=== PATIENT | female | born 1965 | race Caucasian/White ===

== ENCOUNTER → 2016-04-05 | Outpatient (CLI) | payer BC ==
[~2016-04-05] MED LIST: ESCI10TA17 PO; LEVO125T72 PO; LIOT5TAB PO; PSYL0.524 PO
--- NOTE | 2016-04-05 16:41 | MAMMOGRAPHY REPORT ---
BILATERAL DIGITAL SCREENING MAMMOGRAM TOMOSYNTHESIS WITH CAD: 04/05/2016 TECHNIQUE: Breast tomosynthesis in addition to standard 2D mammography was performed. Current study was also evaluated with a Computer Aided Detection (CAD) system. COMPARISON: Comparison is made to exams dated: 03/31/2015 mammogram, 03/25/2014 mammogram, 03/19/2013 m ammogram, 02/29/2012 mammogram, 02/27/2011 mammogram - [facility], and 02/09/2010 m ammogram. BREAST COMPOSITION: The tissue of both breasts is heterogeneously dense, which may obscure small ma sses. FINDINGS: No suspicious masses, calcifications, or areas of architectural distortion are noted in e ither breast. There has been no significant interval change compared to prior exams. IMPRESSION: ACR BI-RADS CATEGORY 1: NEGATIVE There is no mammographic evidence of malignancy. A 1 year screening mammogram is recommended. The p atient will receive written notification of the results. Approximately 10% of breast cancers are not detected with mammography. A negative mammographic repor t should not delay biopsy if a clinically suggestive mass is present. Aruna Durand M.D. /:04/05/2016 15:33:43 Chemical Sprayer: Natalia CRUMP(Deja)(Mayi), [facility] letter sent: Normal 1/2 BI-RADS Code: ACR BI-RADS Category 1: Negative
== END | disposition home or self-care (01) ==
LOC: C.MAMM 10:10
PROVIDERS: ATTEND Obstetrics & Gynecology
DX: Z12.31 Encounter for screening mammogram for malignant neoplasm of breast (principal)

== ENCOUNTER → 2016-07-27 | Outpatient (CLI) | payer BC ==
[~2016-07-27] MED LIST changes: +MISCCAP80 PO; +ONDA4TAB10 SL; +OXYC-57 PO; +TAMS0.4C38 PO
== END | disposition home or self-care (01) ==
LOC: C.PAPS 08:56
PROVIDERS: ATTEND Obstetrics & Gynecology
DX: Z01.419 Encounter for gynecological examination (general) (routine) without abnormal findings (principal)

== ENCOUNTER → 2016-07-30 | Outpatient (CLI) | payer BC | END | disposition home or self-care (01) | LOC: C.PATHSPEC 17:39 | PROVIDERS: ATTEND Obstetrics & Gynecology | DX: N90.4 Leukoplakia of vulva (principal) ==

== ENCOUNTER 2016-12-12 17:55 | Emergency (ER) | payer BC ==
[~2016-12-12] VITALS: Ht 167.6 cm; Wt 88.0 kg
[~2016-12-12 17:55] MED LIST changes: -MISCCAP80 PO; -ONDA4TAB10 SL; -OXYC-57 PO; -TAMS0.4C38 PO
[2016-12-12 18:14] VITALS: TEMP 37.4; Ht 167.6 cm; Wt 88.0 kg
[2016-12-12] MEDS ORDERED: SODIUM CHLORIDE 0.9% 1000ML 1,000 ML IV STA (19:21)
[2016-12-12] MEDS ORDERED: KETOROLAC TROMETHAMINE 30 MG/ML VIAL IV STA (19:21)
[2016-12-12 19:53] LABS: BASO % 0.6 %; BASO ABS # 0.04 K/uL (0-0.2); COMPLETE YES; EOS % 1.7 %; HEMATOCRIT 42.9 % (37-47); IG% 0.1 %; LYMPH % 23.7 %; LYMPH ABS # 1.63 K/uL (1.2-3.4); MEAN CELL VOLUME 83.5 fL (80-100); MEAN CORPUSCULAR HEMOGLOBIN 27.8 pg (25-34); MEAN CORPUSCULAR HGB CONC 33.3 g/dl (32-36); MEAN PLATELET VOLUME 9.9 fL (7.4-10.4); MONO % 6.3 %; NEUT % 67.6 %; PLATELET COUNT 218 K/uL (130-400); RED BLOOD COUNT 5.14 M/uL (4.2-5.4); WHITE BLOOD COUNT 6.87 K/uL (4.8-10.8)
[2016-12-12] MEDS ORDERED: MISCCAP80 PO (19:53)
[2016-12-12 20:02] LABS: URINE APPEARANCE CLEAR (CLEAR); URINE BILIRUBIN NEG (NEG); URINE COLOR YELLOW; URINE EPITHELIAL CELL AUTO 20-30 /lpf (0-5); URINE NITRITE NEG (NEG); URINE SPECIFIC GRAVITY 1.024 (1.000-1.030); UROBILINOGEN NEG (NEG); ZZUR CULT IF INDIC CLEAN CATCH YES
[2016-12-12 20:04] LABS: MANUAL MICROSCOPIC REQUIRED? NO; REVIEW REQ? NO
[2016-12-12 20:11] LABS: BUN/CREATININE RATIO 21.2 (10-20); CALCIUM 9.2 mg/dl (8.5-10.1); CREATININE 0.92 mg/dl (0.60-1.20); POTASSIUM 3.8 mmol/L (3.5-5.1)
--- NOTE | 2016-12-12 20:16 | DIAGNOSTIC IMAGING REPORT ---
ABD/PELVIS WITHOUT FOR STONE HISTORY: 51 years-old Female right low back pain, hematuria acute right lower back pain with hematuria. COMPARISON: CT abdomen and pelvis 09/13/2015 TECHNIQUE: Multiple axial CT images of the abdomen and pelvis were obtained without contrast. A dose lowering technique was used consistent with the principals of JAMIE. FINDINGS: Lung bases are generally clear. Small left Bochdalek hernia. No pneumoperitoneum. Imaged inferior cardiac chambers are unremarkable. The liver, gallbladder, pancreas, spleen and adrenal glands are unremarkable. There is mild right-sided hydroureteronephrosis secondary to a 3 x 2 x 2 mm calculus of the proximal right ureter seen at the level of the inferior endplate L3. Mild surrounding inflammatory stranding. No additional renal calculi. No left-sided hydronephrosis. Urinary bladder is unremarkable. Uterus and adnexa are also within normal limits. The abdominal aorta is normal in course and caliber. No bulky retroperitoneal adenopathy. There is no bowel obstruction. Sigmoid colon is tortuous. The appendix is not well seen. No secondary signs of acute appendicitis. Note is made of diastases recti. Osteitis condensans ilii incidentally noted. Bones are intact. IMPRESSION: 1. Mild right-sided hydroureteronephrosis secondary to a 3 x 2 x 2 mm calculus of the proximal right ureter at the level of the inferior endplate L3. 2. Osteitis condensans ilii The above report was generated using voice recognition software. It may contain grammatical, syntax or spelling errors. Electronically signed by: Suman Chase M.D. 12/12/2016 8:15 PM Dictated Date/Time: 12/12/2016 8:10 PM
[2016-12-12] MEDS ORDERED: TAMSULOSIN HCL 0.4 MG CAP PO ONE (20:45)
--- NOTE | 2016-12-12 21:36 | EMERGENCY ROOM VISIT NOTE ---
History Report prepared by Lebron: Misael Key Under the Supervision of: Dr. Val Hernandez D.O. First contact with patient: 19:08 Chief Complaint: BACK PAIN Stated Complaint: RT LOWER BACK PAIN, VOMIT, BLOOD IN URIN History of Present Illness The patient is a 51 year old female who presents to the Emergency Room with complaints of right lower back pain since about four hours ago. She says that the abdominal pain was accompanied with vomiting but has felt better after vomiting. Pt states that her lower back pain has been worsening but only stays in her back and does not radiate. She states that it helps to lean to the side. Pt also noticed blood in her urine described as a "pink tinge" in the toilet and on the wipe. She does not believe it could be vaginal bleeding. Pt states she has been experiencing darker colored urine in the past few days, despite drinking water. She states that she drinks 3 cups coffee each morning and water throughout the day. She also complains of diarrhea and low-grade fever today. Pt denies flu symptoms, chest pain, SOB, cough and changes in her daily life. Pt has history of hypothyroidism as well as gluten intolerance that improved with probiotics. She has a PMHx of 2 sections. She denies any prior back problems as well as kidney stones. Pt works as a physical therapist with babies, but denies any known sick contacts. She denies any recent straining or injury. She denies any recent medication changes. Source of History: patient Onset: Four hours ago Position: back (Right lower.) Timing: worsening Modifying Factors (Relieving): other (Leaning to the side.) Associated Symptoms: + fevers, + abdominal pain, + diarrhea, + urinary symptoms (Blood in urine. Darker colored urine.) Review of Systems See HPI for pertinent positives & negatives. A total of 10 systems reviewed and were otherwise negative. Past Medical & Surgical Medical Problems: (1) Hx of Ky thyroiditis (2) IgA deficiency (3) MGUS (monoclonal gammopathy of unknown significance) Family History No pertinent family history stated. Social History Smoking Status: Never Smoker Marital Status: Current/Historical Medications Scheduled Escitalopram (Lexapro), 10 MG PO HS Levothyroxine Sodium (Synthroid), 1 TAB PO QAM Liothyronine Sodium (Cytomel), 5 MCG PO QAM Ondasetron Odt (Zofran Odt), 4 MG SL Q6H Probiotic Product (Probiotic), 1 CAP PO DAILY Tamsulosin Hcl (Flomax), 0.4 MG PO DAILY Scheduled PRN Oxycodone/Acetaminophen 5MG/325MG (Percocet 5MG/325MG), 1-2 TABS PO Q4H PRN for Pain Allergies Coded Allergies: Gluten (Verified Allergy, Unknown, GI upset, 12/12/16) Hydrocodone (Verified Allergy, Unknown, vomiting, 12/12/16) Physical Exam Vital Signs Date Time Temp Pulse Resp B/P (MAP) Pulse Ox O2 Delivery O2 Flow Rate FiO2 12/12/16 21:55 78 20 156/78 99 12/12/16 20:49 68 20 153/94 97 Room Air 12/12/16 18:14 37.4 77 18 142/90 98 Room Air Physical Exam GENERAL: alert, well appearing, well nourished, no distress, non-toxic EYE EXAM: normal conjunctiva, PERRL and EOM's grossly intact OROPHARYNX: no exudate, no erythema, lips, buccal mucosa, and tongue normal and mucous membranes are moist NECK: supple, no nuchal rigidity, no adenopathy, non-tender LUNGS: Clear to auscultation. Normal chest wall mechanics HEART: no murmurs, S1 normal and S2 normal ABDOMEN: abdomen soft, non-tender, normo-active bowel sounds, no masses, no rebound or guarding. BACK: Back is symmetrical on inspection and there is no deformity. Reproducible low back pain. SKIN: no rashes and no bruising UPPER EXTREMITIES: upper extremities are grossly normal. LOWER EXTREMITIES: No pitting edema. NEURO EXAM: Normal sensorium, cranial nerves II-XII [grossly] intact, normal speech, no [gross] weakness of arms, no [gross] weakness of legs. Medical Decision & Procedures ER Provider Diagnostic Interpretation: CT:Per my review, radiologist interpretation. ABD/PELVIS WITHOUT FOR STONE FINDINGS: Lung bases are generally clear. Small left Bochdalek hernia. No pneumoperitoneum. Imaged inferior cardiac chambers are unremarkable. The liver, gallbladder, pancreas, spleen and adrenal glands are unremarkable. There is mild right-sided hydroureteronephrosis secondary to a 3 x 2 x 2 mm calculus of the proximal right ureter seen at the level of the inferior endplate L3. Mild surrounding inflammatory stranding. No additional renal calculi. No left-sided hydronephrosis. Urinary bladder is unremarkable. Uterus and adnexa are also within normal limits. The abdominal aorta is normal in course and caliber. No bulky retroperitoneal adenopathy. There is no bowel obstruction. Sigmoid colon is tortuous. The appendix is not well seen. No secondary signs of acute appendicitis. Note is made of diastases recti. Osteitis condensans ilii incidentally noted. Bones are intact. IMPRESSION: 1. Mild right-sided hydroureteronephrosis secondary to a 3 x 2 x 2 mm calculus of the proximal right ureter at the level of the inferior endplate L3. 2. Osteitis condensans ilii The above report was generated using voice recognition software. It may contain grammatical, syntax or spelling errors. Electronically signed by: Suman Chase M.D. 12/12/2016 8:15 PM Laboratory Results 12/12/16 19:40 Red Blood Count 5.14, Mean Corpuscular Volume 83.5, Mean Corpuscular Hemoglobin 27.8, Mean Corpuscular Hemoglobin Concent 33.3, Mean Platelet Volume 9.9, Neutrophils (%) (Auto) 67.6, Lymphocytes (%) (Auto) 23.7, Monocytes (%) (Auto) 6.3, Eosinophils (%) (Auto) 1.7, Basophils (%) (Auto) 0.6, Neutrophils # (Auto) 4.64, Lymphocytes # (Auto) 1.63, Monocytes # (Auto) 0.43, Eosinophils # (Auto) 0.12, Basophils # (Auto) 0.04 12/12/16 19:40 Test 12/12/16 19:40 White Blood Count 6.87 K/uL (4.8-10.8) Red Blood Count 5.14 M/uL (4.2-5.4) Hemoglobin 14.3 g/dL (12.0-16.0) Hematocrit 42.9 % (37-47) Mean Corpuscular Volume 83.5 fL (80-100) Mean Corpuscular Hemoglobin 27.8 pg (25-34) Mean Corpuscular Hemoglobin Concent 33.3 g/dl (32-36) Platelet Count 218 K/uL (130-400) Mean Platelet Volume 9.9 fL (7.4-10.4) Neutrophils (%) (Auto) 67.6 % Lymphocytes (%) (Auto) 23.7 % Monocytes (%) (Auto) 6.3 % Eosinophils (%) (Auto) 1.7 % Basophils (%) (Auto) 0.6 % Neutrophils # (Auto) 4.64 K/uL (1.4-6.5) Lymphocytes # (Auto) 1.63 K/uL (1.2-3.4) Monocytes # (Auto) 0.43 K/uL (0.11-0.59) Eosinophils # (Auto) 0.12 K/uL (0-0.5) Basophils # (Auto) 0.04 K/uL (0-0.2) RDW Standard Deviation 40.4 fL (36.4-46.3) RDW Coefficient of Variation 13.3 % (11.5-14.5) Immature Granulocyte % (Auto) 0.1 % Immature Granulocyte # (Auto) 0.01 K/uL (0.00-0.02) Urine Color YELLOW Urine Appearance CLEAR (CLEAR) Urine pH 7.0 (4.5-7.5) Urine Specific Frost 1.024 (1.000-1.030) Urine Protein 1+ (NEG) Urine Glucose (UA) NEG (NEG) Urine Ketones TRACE (NEG) Urine Occult Blood 3+ (NEG) Urine Nitrite NEG (NEG) Urine Bilirubin NEG (NEG) Urine Urobilinogen NEG (NEG) Urine Leukocyte Esterase SMALL (NEG) Urine WBC (Auto) 10-30 /hpf (0-5) Urine RBC (Auto) >30 /hpf (0-4) Urine Hyaline Casts (Auto) 1-5 /lpf (0-5) Urine Epithelial Cells (Auto) 20-30 /lpf (0-5) Urine Bacteria (Auto) NEG (NEG) Anion Gap 8.0 mmol/L (3-11) Est Creatinine Clear Calc Drug Dose 80.8 ml/min Estimated GFR () 83.6 Estimated GFR (Non- 72.1 BUN/Creatinine Ratio 21.2 (10-20) Calcium Level 9.2 mg/dl (8.5-10.1) Total Bilirubin 0.5 mg/dl (0.2-1) Aspartate Amino Transf (AST/SGOT) 27 U/L (15-37) Alanine Aminotransferase (ALT/SGPT) 49 U/L (12-78) Alkaline Phosphatase 64 U/L (45-117) Total Protein 8.0 gm/dl (6.4-8.2) Albumin 4.0 gm/dl (3.4-5.0) Globulin 4.0 gm/dl (2.5-4.0) Albumin/Globulin Ratio 1.0 (0.9-2) Laboratory results per my review. Medications Administered Medications (Trade) Dose Ordered Sig/Yulia Route Start Time Stop Time Status Last Admin Dose Admin Sodium Chloride 1,000 ml @ 999 mls/hr Q1H1M STAT IV 12/12/16 19:21 12/12/16 20:21 DC 12/12/16 19:21 999 MLS/HR Ketorolac Tromethamine (Toradol Inj) 15 mg NOW STAT IV 12/12/16 19:21 12/12/16 19:23 DC 12/12/16 19:51 15 MG Tamsulosin HCl (Flomax Cap) 0.4 mg NOW ONCE PO 12/12/16 20:45 12/12/16 20:46 DC 12/12/16 20:47 0.4 MG Ondansetron HCl (ZOFRAN ODT 4MG Home Pack) 1 homepack K-MED ONCE .ROUTE 12/12/16 21:45 12/12/16 21:46 DC 12/12/16 21:47 1 HOMEPACK ED Course 1909: The patient was evaluated in room A2. A complete history and physical exam was performed. 1920: Ordered Torodol Injection 15mg IV, Sodium Chloride 1000 ml @ 999 mls/hr IV. 2044: Ordered Flomax Cap 0.4 mg PO. 2145: Ordered ZOFRAN ODT 4MG Home Pack PO. 2149: Upon reevaluation, the patient is feeling better. I discussed the findings and the treatment plan with the patient. She verbalizes agreement and understanding. She was discharged home. Medical Decision Differential diagnosis: Kidney stone, UTI, pyelonephritis, muscular skeletal strain, appendicitis, biliary colic Patient well-appearing here despite complaints, and symptoms improved with Toradol and IV fluids. Patient's urinalysis with gross hematuria, doubt concurrent infection and increased red blood cells likely delusional effect of increased hematuria. Doubt infection. Kidney stone noted on CT, no other acute pathology seen, patient's other labs reassuring. Discussed with patient adequate hydration, decreasing coffee consumption, follow-up with family doctor and/or urology, use of medications at home, straining urine, symptoms to watch and return for, she verbalized understanding was agreeable with plan. At time of discharge patient was ambulating with a steady gait and tolerating by mouth without incident. Medication Reconcilliation Current Medication List: was personally reviewed by me Blood Pressure Screening Patient's blood pressure: Elevated blood pressure Blood pressure disposition: Elevated BP felt to be situational Impression Primary Impression: Ureterolithiasis Additional Impressions: Low back pain Hematuria Scribe Attestation The scribe's documentation has been prepared under my direction and personally reviewed by me in its entirety. I confirm that the note above accurately reflects all work, treatment, procedures, and medical decision making performed by me. Departure Information Dispostion Home / Self-Care Prescriptions Ondasetron Odt (ZOFRAN ODT) 4 Mg Tab 4 MG SL Q6H for Nausea, #20 TAB Prov: Val Hernandez, DO 12/12/16 Oxycodone/Acetaminophen 5MG/325MG (PERCOCET 5MG/325MG) Tab 1-2 TABS PO Q4H Y for Pain, #10 TAB Prov: aVl Hernandez, DO 12/12/16 Tamsulosin Hcl (FLOMAX) 0.4 Mg Cap 0.4 MG PO DAILY, #10 CAP Prov: Val Hernandez, DO 12/12/16 Referrals Alicia Acosta,D.OGely (PCP) Patient Instructions My [facility] Additional Instructions Please follow up with your family doctor. You may use ibuprofen as needed for the pain, if this does not help, you may take the additional pain medication as prescribed. Do not take the stronger pain medication and drive or drink alcohol. Please drink plenty of water. You may use a nausea medication as needed. If you have any worsening pain, are unable to urinate, develop recurrent vomiting, develop fevers or chills, or you have any other new concerns , please return to the emergency room. Problem Qualifiers Additional Impressions: Low back pain Chronicity: acute Back pain laterality: right Sciatica presence: without sciatica Qualified Codes: M54.5 - Low back pain Hematuria Hematuria type: unspecified type Qualified Codes: R31.9 - Hematuria, unspecified
[2016-12-12] MEDS ORDERED: OXYC-57 PO (21:37)
[2016-12-12] MEDS ORDERED: TAMS0.4C38 PO (21:37)
[2016-12-12] MEDS ORDERED: ONDA4TAB10 SL (21:37)
[2016-12-12] MEDS ORDERED: ONDANSETRON HOME PACK 4MG OD TAB ONE (21:45)
[2016-12-12 21:55] VITALS: BP 156/78; PULSE 78; O2SAT 99
== END 2016-12-12 21:55 | disposition home or self-care (01) ==
LOC: C.EDB 17:56 → C.EDA 21:55
DX: N13.2 Hydronephrosis with renal and ureteral calculous obstruction (principal); E06.3 Autoimmune thyroiditis; D47.2 Monoclonal gammopathy; Z79.899 Other long term (current) drug therapy

== ENCOUNTER → 2017-04-11 | Outpatient (CLI) | payer OTHER ==
[~2017-04-11] MED LIST changes: +MISCCAP80 PO; +ONDA4TAB10 SL; +OXYC-57 PO; -PSYL0.524 PO
--- NOTE | 2017-04-11 14:35 | MAMMOGRAPHY REPORT ---
BILATERAL DIGITAL SCREENING MAMMOGRAM TOMOSYNTHESIS WITH CAD: 04/11/2017 CLINICAL HISTORY: Routine screening. Patient has no complaints. TECHNIQUE: Breast tomosynthesis in addition to standard 2D mammography was performed. Current study was also evaluated with a Computer Aided Detection (CAD) system. COMPARISON: Comparison is made to exams dated: 04/05/2016 mammogram, 03/31/2015 mammogram, 03/25/2014 m ammogram, 03/19/2013 mammogram, 02/29/2012 mammogram, and 02/27/2011 mammogram - [facility]. BREAST COMPOSITION: The tissue of both breasts is heterogeneously dense, which may obscure small mas ses. FINDINGS: No suspicious masses, calcifications, or areas of architectural distortion are noted in ei ther breast. There has been no significant interval change compared to prior exams. IMPRESSION: ACR BI-RADS CATEGORY 1: NEGATIVE There is no mammographic evidence of malignancy. A 1 year screening mammogram is recommended. The pa tient will receive written notification of the results. Approximately 10% of breast cancers are not detected with mammography. A negative mammographic report should not delay biopsy if a clinically suggestive mass is present. Aruna Durand M.D. ah/:04/11/2017 12:32:09 Plasterer Tender: Pamela CRUMP(Deja)(M), [facility] letter sent: Normal 1/2 BI-RADS Code: ACR BI-RADS Category 1: Negative
== END | disposition home or self-care (01) ==
LOC: C.MAMM 09:53
PROVIDERS: ATTEND Obstetrics & Gynecology
DX: Z12.31 Encounter for screening mammogram for malignant neoplasm of breast (principal)

== ENCOUNTER → 2017-07-17 | Outpatient (CLI) | payer OTHER ==
[~2017-07-17] MED LIST changes: -ONDA4TAB10 SL; -OXYC-57 PO
== END | disposition home or self-care (01) ==
LOC: C.PAPS 18:10
PROVIDERS: ATTEND Obstetrics & Gynecology
DX: Z12.4 Encounter for screening for malignant neoplasm of cervix (principal)

== ENCOUNTER 2019-11-12 15:00 | Inpatient (IN) ==
--- NOTE | 2019-11-12 16:09 | XRay Report ---
XR chest 1V portable CLINICAL HISTORY: Dyspnea COMPARISON STUDY: 08/29/2019 FINDINGS: The heart is normal in size. There is mild elevation/eventration right hemidiaphragm. There are bilateral subsegmental atelectatic changes within the mid to lower lung zones. There is no failu re. There are no significant pleural effusions.[ IMPRESSION: Bilateral subsegmental atelectatic change. ACT 112: Negative or not required by law. Electronically signed by: Louis Jesus M.D. 11/12/2019 4:07 PM
[2019-11-12 16:15] LABS: Basophils # (auto) 0.01 K/uL (0-0.2); Basophils % (auto) 0.1 %; Eosinophils # (auto) 0.12 K/uL (0-0.5); Eosinophils % (auto) 1.1 %; Immature Granulocytes # (auto) 0.24 K/uL (0.00-0.02); Immature Granulocytes % (auto) 2.2 %; Lymphocytes # (auto) 1.01 K/uL (1.2-3.4); Lymphocytes % (auto) 9.3 %; Mean Corpuscular Hemoglobin 28.3 pg (25-34); Mean Corpuscular Hgb Conc 33.3 g/dL (32-36); Mean Corpuscular Volume 84.9 fL (80-100); Mean Platelet Volume 8.6 fL (7.4-10.4); Monocytes % (auto) 6.5 %; Neutrophils # (auto) 8.74 K/uL (1.4-6.5); Neutrophils % (auto) 80.8 %; Nucleated RBC # (auto) 0.03 K/uL (0-0); Nucleated RBC % (auto) 0.3 %; Platelet Count 175 K/uL (130-400); RDW Coefficient of Variation 17.7 % (11.5-14.5); RDW Standard Deviation 54.7 fL (36.4-46.3); Red Blood Count 4.24 M/uL (4.2-5.4); White Blood Count 10.82 K/uL (4.8-10.8)
[2019-11-12 16:26] LABS: Partial Thromboplastin Ratio 0.7; Partial Thromboplastin Time 20.9 Seconds (21.0-31.0); Prothrombin Time 10.6 Seconds (9.0-12.0)
[2019-11-12 16:37] LABS: Albumin Level 3.1 gm/dl (3.4-5.0); BUN Creatinine Ratio 26.3 (10-20); Calcium 9.1 mg/dl (8.5-10.1); Creatinine Clr Calc Pharmacy 95.4 ml/min; Est GFR (African American) 95.4; Est GFR (Non-African American) 82.3; Magnesium 2.2 mg/dl (1.8-2.4); Potassium 3.9 mmol/L (3.5-5.1)
[2019-11-12] MEDS ORDERED: OPTIRAY 320 125ml IV ONE (16:46)
[2019-11-12 16:57] LABS: Albumin Globulin Ratio 0.9 (0.9-2); Bilirubin,Total 0.4 mg/dl (0.2-1); Globulin 3.5 gm/dl (2.5-4.0); Total Protein 6.6 gm/dl (6.4-8.2); Troponin I 0.055 ng/ml (0-0.045)
--- NOTE | 2019-11-12 17:30 | CT Scan Report ---
CT ANGIOGRAM OF THE CHEST CLINICAL HISTORY: Dyspnea, chest pain POSSIBLE PULMONARY EMBOLISM COMPARISON STUDY: Chest x-ray dated 11/12/2019 TECHNIQUE: Following the IV administration of 120 mL of Optiray-320, CT angiogram of the thorax was p erformed from the thoracic inlet to the lung bases utilizing the pulmonary embolus protocol. Images a re reviewed in the axial, sagittal, and coronal planes. IV contrast was administered without complica tion. MIP imaging was performed. A dose lowering technique was utilized adhering to the principles o f ALARA. CT DOSE: 540.32 mGycm FINDINGS: No pathologically enlarged axillary mediastinal or hilar lymph nodes were visualized. There was no evidence of thoracic aortic dilatation. There are bilateral pulmonary artery filling defects indicative of acute bilateral pulmonary embolism . There is no evidence of significant right ventricular strain. No pleural effusions are visualized. There is mild elevation of the right hemidiaphragm. There are bilateral linear parenchymal opacities, likely representing subsegmental atelectasis. The study is compromised due to respiratory motion art ifact. IMPRESSION: 1. Acute bilateral pulmonary embolism. ACT 112: Negative or not required by law. Electronically signed by: Louis Jesus M.D. 11/12/2019 5:28 PM
--- NOTE | 2019-11-12 17:36 | Emergency Department Note ---
History of Present Illness General Chief Complaint: Cardiac Assessment Stated Complaint: SOB, ELEVATED BP, CHEST PAIN Time Seen by Provider: 11/12/19 15:15 Source: patient and family Mode of arrival: ambulatory Limitations: no limitations History of Present Illness Provider Complaint: shortness of breath and chest pain Onset (ago): day(s) (1) Severity: moderate Consistency/Duration: + constant Current Pain Intensity: 0 Relieved By: + nothing Exacerbated By: + exertion, + movement and + talking Context: + recent illness, + recent travel and + other (recent procedure, meningioma) Associated symptoms: + chest pain (last night) Treatment prior to arrival: none HPI Narrative: This 54-year-old female patient with significant past medical history of meningioma who has recently undergone multiple surgeries, admission for meningitis, and travel for the procedures presents to the emergency department today via private vehicle accompanied by her for evaluation of shortness of breath. The patient is here at the referral of cardiology. The patient had a surgery in May due to the meningioma in [place]. She then traveled back here and was seen in September at [facility] where she was diagnosed with meningitis. She was ultimately transferred to [place] due to swelling in the brain, was there for approximately 2 weeks. She was doing well and dis charged home on steroids which she was being weaned off. She was also started on seizure medications. Patient was then seen in [place] approximately 1 month ago followed by [place] outpatient on Saturday of this week. On Saturday, she developed a rash which is suspected to be associated with the Trileptal. She is now on prednisone again for the reaction, and took 20 mg Saturday evening and 40 mg yesterday. Last evening while changing her close, the patient developed sudden onset of shortness of breath and chest pain. Her blood pressure was 150-160/110-115 and associated with some chest pressure which lasted less than 5 seconds. She did have one episode of diarrhea at this time. Patient states she did take 2.5 mg of additional Norvasc at that time due to the elevated blood pressure. The patient states she is having coughing with deep breath, but has not recently been ill. She denies any fever. She is having exertional dyspnea and having difficulty walking and talking due to the short of breath. Patient denies any history of DVT or PE. She denies any personal or family history of clotting. She denies a history of cardiac disease. Patient denies any current pain. She has numbness, tingling, weakness, nausea, vomiting, diarrhea, constipation. There is no abdominal pain. There is no hemoptysis. Related Data Home oxygen amount: none Home Medications Home Medications Medication Instructions Recorded Confirmed Type escitalopram oxalate [Lexapro] 10 mg PO QAM 10/30/18 11/12/19 History levothyroxine [Synthroid] 125 mcg PO QAM 10/30/18 11/12/19 History cholecalciferol (vitamin D3) 125 125 mcg PO WEEKLY tab 07/15/19 11/12/19 History mcg (5,000 unit) disintegrating tablet clobetasol 0.05 % topical ointment 1 appln TOP BID PRN 07/15/19 11/12/19 History elderberry fruit 460 mg-elderberry 1 cap PO DAILY cap 07/15/19 11/12/19 History flower 115 mg capsule levetiracetam 500 mg tablet 1,000 mg PO BID 07/15/19 11/12/19 History pantoprazole 40 mg tablet,delayed 40 mg PO DAILY 07/15/19 11/12/19 History release prochlorperazine maleate 5 mg 5 mg PO QID PRN #30 tab 09/04/19 11/12/19 Rx tablet tramadol 50 mg tablet 50 mg PO Q8H PRN #60 tab 09/04/19 11/12/19 Rx amlodipine [Norvasc] 5 mg PO DAILY 11/12/19 11/12/19 History cetirizine [Zyrtec] 10 mg PO DAILY 11/12/19 11/12/19 History dexamethasone [Decadron] 4 mg PO UD 11/12/19 11/12/19 History pentoxifylline 400 mg PO BID 11/12/19 11/12/19 History prednisone 0 mg PO .TAPER UD 11/12/19 11/12/19 History triamcinolone acetonide 1 applic TOPICAL SPACE 11/12/19 11/12/19 History vitamin E (dl, acetate) 400 unit PO BID 11/12/19 11/12/19 History Allergies Allergy/AdvReac Type Severity Reaction Status Date / Time oxcarbazepine Allergy Severe Rash Verified 11/12/19 16:47 [From Trileptal] hydrocodone Allergy Unknown vomiting Verified 11/12/19 16:46 gluten AdvReac Unknown GI upset Verified 11/12/19 16:46 corn AdvReac Gastrointestinal Verified 11/12/19 16:46 Upset Past Med/Surg History Medical History Anxiety Encounter for pre-operative examination History of torn meniscus of left knee Hx of [place] thyroiditis Hypothyroidism IgA deficiency FOLLOWS WITH DR. NUNN/ [facility] Lichen sclerosus MGUS (monoclonal gammopathy of unknown significance) Migraine Nausea and vomiting after administration of anesthetic agent Osteoarthritis Surgical History (Updated 11/12/19 @ 19:07 by Jaja Agrawal PA-C) History of section X2 History of colonoscopy History of tonsillectomy Hx of abdominal surgery UTERINE ABLATION 2008 Family History Mother Hypothyroidism Alzheimer disease Father Pre-diabetes Social History Smoking Status: Never smoker Second Hand Exposure: No; Hx Alcohol Use: Yes Alcohol type: wine Alcohol Intake Frequency Comment: 2-3 imes per week Hx Substance Use: No Preferred Language: Martiniquais Communication Ability: Effective Hearing Ability: Hard of Hearing Volunteer Patient Representative Required: No Beliefs That Will Affect Care: None marital status: Current Living Situation: Spouse current occupational status: previously employed current occupation: pediatric physical therapist Feels Safe at Home: Yes Childhood Exposure to Second-Hand Smoke: Yes caffeine: Yes (occ coffee, ) during the past year weight has: remained stable Dental Care, Regularly: Yes Physical Activity Frequency: 3-4 Times per Week Seatbelt Use: always Sunscreen Use: Yes Review of Systems A total of 10 systems reviewed and were otherwise negative Physical Exam Vital Signs: Vital Signs - 24 hr 11/12/19 15:08 11/12/19 15:15 11/12/19 15:35 Temperature 37.0 C Temperature Source Oral Pulse Rate 95 H Pulse Rate [Apical ] Respiratory Rate 20 Respiratory Effort / Characteristics Non-Labored Sponta neous Respiratory Depth Normal Respiratory Patter n Regular Blood Pressure 146/84 H Blood Pressure [Ri ght Arm] Blood Pressure Nesha n 104 Blood Pressure Nesha n [Right Arm] Blood Pressure Pos ition Sitting Pulse Oximetry 88 L Oxygen Delivery Me thod Room Air Room Air Oxygen Flow Rate Sepsis Recent Feve r Within 48 Hours No Sepsis New/Unexpla ined Change in Men ruthy Status No Sepsis Action Take n by Nursing No Action Required 11/12/19 15:42 11/12/19 16:11 11/12/19 16:25 Temperature Temperature Source Pulse Rate Pulse Rate [Apical ] 82 81 Respiratory Rate 18 18 Respiratory Effort / Characteristics Non-Labored Respiratory Depth Normal Respiratory Patter n Blood Pressure Blood Pressure [Ri ght Arm] 134/88 132/98 Blood Pressure Nesha n Blood Pressure Nesha n [Right Arm] 103 109 Blood Pressure Pos ition Pulse Oximetry 95 96 Oxygen Delivery Me thod Nasal Cannula Nasal Cannula Nasal Cannula Oxygen Flow Rate 2 2 Sepsis Recent Feve r Within 48 Hours Sepsis New/Unexpla ined Change in Men ruthy Status Sepsis Action Take n by Nursing 11/12/19 17:00 11/12/19 18:04 11/12/19 19:36 Temperature Temperature Source Pulse Rate Pulse Rate [Apical ] 75 81 83 Respiratory Rate 18 18 18 Respiratory Effort / Characteristics Non-Labored Respiratory Depth Normal Respiratory Patter n Blood Pressure Blood Pressure [Ri ght Arm] 142/95 H 134/87 134/90 Blood Pressure Nesha n Blood Pressure Nesha n [Right Arm] 110 102 104 Blood Pressure Pos ition Pulse Oximetry 93 95 98 Oxygen Delivery Me thod Nasal Cannula Nasal Cannula Room Air Oxygen Flow Rate 2 Sepsis Recent Feve r Within 48 Hours Sepsis New/Unexpla ined Change in Men ruthy Status Sepsis Action Take n by Nursing 11/12/19 20:05 Temperature Temperature Source Pulse Rate Pulse Rate [Apical ] Respiratory Rate Respiratory Effort / Characteristics Respiratory Depth Respiratory Patter n Blood Pressure Blood Pressure [Ri ght Arm] Blood Pressure Nesha n Blood Pressure Nesha n [Right Arm] Blood Pressure Pos ition Pulse Oximetry Oxygen Delivery Me thod Room Air Oxygen Flow Rate Sepsis Recent Feve r Within 48 Hours Sepsis New/Unexpla ined Change in Men ruthy Status Sepsis Action Take n by Nursing Physical Exam: VITALS: Vitals are noted on the nurse's note and reviewed by myself. Patient is borderline hypoxic with an O2 saturation of 90% on room air. Otherwise, vital signs without significant abnormality. GENERAL: This is a 54-year-old white female, in no acute distress, nondiaphoretic, well-developed well-nourished. SKIN: Maculopapular erythematous rash noted on the torso. The skin was otherwise without rashes, erythema, edema, or bruising. There is no tenting of the skin. Capillary refill less than 2 seconds. HEAD: Normocephalic atraumatic. EARS: External auditory canals clear, tympanic membranes pearly acevedo without erythema or effusion bilaterally. EYES: Pupils equal round and reactive to light and accommodation. Conjunctivae without injection, sclerae without icterus. Extraocular movements intact. NOSE: Patent, turbinates without inflammation or discharge. No sinus tenderness. MOUTH: Mucous membranes moist. Tonsils are not enlarged. Pharynx without erythema or exudate. Uvula midline. Airway patent. Tongue does not deviate. NECK: Supple without nuchal rigidity. No lymphadenopathy. No JVD. HEART: Regular rate and rhythm without murmurs gallops or rubs. LUNGS: Clear to auscultation bilaterally without wheezes, rales or rhonchi. No retractions or accessory muscle use. ABDOMEN: Positive bowel sounds x 4. Normal tympanic percussion. Soft, nontender, without masses or organomegaly. No guarding or rebound tenderness. MUSCULOSKELETAL: No muscle atrophy, erythema, or edema noted. Full range of motion without joint tenderness in all extremities. No tenderness to palpation. Normal gait. Strength 5/5 throughout. NEURO: Patient was alert and oriented to person place and time. No focal neurological deficits. Course Course The patient was seen and evaluated as above. An order was placed for continuous cardiac monitoring. The monitor shows a no rmal sinus rhythm at a rate of 95 bpm. IV access obtained, labs drawn. Imaging performed and reviewed by myself and radiologist as noted. Labs reviewed by myself. I discussed the case with my attending. I discussed the findings with the patient at bedside. I discussed the case with the land surveying manager. I discussed the case with Stephanie Agrawal PA-C and Dr. Coleman, [facility]. They did agree to see and evaluate the patient for admission. Administered Medications Heparin Sodium/Dextrose (Heparin Sodium/Dextrose) 25,000 units in 500 mls @ 0.02 mls/hr IV .Q24H [facility]; Protocol Stop: 12/12/19 18:44 Last Admin: 11/12/19 19:27 Dose: 1,350 units/hr, 27 mls/hr Documented by: [id number] Cosigned by: [id number] Discontinued Medications Heparin Sodium (Porcine) (Heparin Sod 5,000 Unit/0.5 Ml Vial) Confirm Administered Dose 5,000 units .ROUTE .STK-MED ONE Stop: 11/12/19 19:23 Last Admin: 11/12/19 19:27 Dose: 5,000 units Documented by: [id number] Cosigned by: [id number] Heparin Sodium (Porcine) (Heparin Sod (Porcine) 1000 Unit/Ml 10 Ml Vial) Confirm Administered Dose 10,000 units .ROUTE .STK-MED ONE Stop: 11/12/19 19:24 Last Admin: 11/12/19 19:28 Dose: Not Given Documented by: [id number] Heparin Sodium/Dextrose (Heparin Iv Standard With Bolus) 1 ea IV NOW STA; Protocol Stop: 11/12/19 18:46 Last Admin: 11/12/19 19:28 Dose: Not Given Documented by: [id number] Ioversol (Optiray 320 125ml) 118 ml IV ONCE ONE Stop: 11/12/19 16:47 Last Admin: 11/12/19 16:46 Dose: 1 ml Documented by: [id number] Medical Decision Making Differential Diagnosis + acute exacerbation of chronic obstructive airways disease, + congestive heart failure, + pulmonary embolism, + COPD, + bronchitis, + pneumothorax, + pneumonia, + pleural effusion, + CHF, + ACS and + aspiration Medical Records Attestation: I reviewed the patient's medical records. Home Medications Current Medication List: was personally reviewed by me Laboratory Data Attestation: I reviewed the patient's lab results. No leukocytosis, anemia, thrombocytopenia. Renal, hepatic function, and electrolytes without significant abnormality. Coags normal. Troponin mildly elevated 0.055. BNP 864. Result diagrams: 11/12/19 15:55 11/12/19 15:55 Lab Results 11/12/19 11/12/19 11/12/19 Range/Units 15:55 15:55 15:55 WBC 10.82 H (4.8-10.8) K/uL RBC 4.24 (4.2-5.4) M/uL Hgb 12.0 (12.0-16.0) g/dL Hct 36.0 L (37-47) % MCV 84.9 (80-100) fL MCH 28.3 (25-34) pg MCHC 33.3 (32-36) g/dL RDW Std Deviation 54.7 H (36.4-46.3) fL RDW Coeff of Ly 17.7 H (11.5-14.5) % Plt Count 175 (130-400) K/uL MPV 8.6 (7.4-10.4) fL Immature Gran % (Auto) 2.2 % Neut % (Auto) 80.8 % Lymph % (Auto) 9.3 % [place] % (Auto) 6.5 % Eos % (Auto) 1.1 % Baso % (Auto) 0.1 % Neut # (Auto) 8.74 H (1.4-6.5) K/uL Lymph # (Auto) 1.01 L (1.2-3.4) K/uL [place] # (Auto) 0.70 H (0.11-0.59) K/uL Eos # (Auto) 0.12 (0-0.5) K/uL Baso # (Auto) 0.01 (0-0.2) K/uL Immature Gran # (Auto) 0.24 H (0.00-0.02) K/uL Absolute Nucleated RBC 0.03 H (0-0) K/uL Nucleated RBC % (auto) 0.3 % PT 10.6 (9.0-12.0) Seconds INR 1.0 (0.9-1.1) APTT 20.9 L (21.0-31.0) Seconds PTT Ratio 0.7 Sodium 141 (136-145) mmol/L Potassium 3.9 (3.5-5.1) mmol/L Chloride 107 (98-107) mmol/L Carbon Dioxide 27 (21-32) mmol/L Anion Gap 7.0 (3-11) BUN 21 H (7-18) mg/dl Creatinine 0.81 (0.6-1.2) mg/dl Est Cr Clr Drug Dosing 95.4 ml/min Est GFR ( Amer) 95.4 Est GFR (Non-Af Amer) 82.3 BUN/Creatinine Ratio 26.3 H (10-20) Glucose 100 H (70-99) mg/dl Calcium 9.1 (8.5-10.1) mg/dl Magnesium 2.2 (1.8-2.4) mg/dl Total Bilirubin 0.4 (0.2-1) mg/dl AST 14 L (15-37) U/L ALT 37 (12-78) U/L Alkaline Phosphatase 69 (45-117) U/L Troponin I 0.055 H* (0-0.045) ng/ml NT-Pro-B Natriuret Pep 864 (0-900) pg/ml Total Protein 6.6 (6.4-8.2) gm/dl Albumin 3.1 L (3.4-5.0) gm/dl Globulin 3.5 (2.5-4.0) gm/dl Albumin/Globulin Ratio 0.9 (0.9-2) Imaging Data Radiologist's Impression: XR chest 1V portable CLINICAL HISTORY: Dyspnea COMPARISON STUDY: 08/29/2019 FINDINGS: The heart is normal in size. There is mild elevation/eventration right hemidiaphragm. There are bilateral subsegmental atelectatic changes within the mid to lower lung zones. There is no failure. There are no significant pleural effusions.[ IMPRESSION: Bilateral subsegmental atelectatic change. ACT 112: Negative or not required by law. Electronically signed by: Louis Jesus M.D. 11/12/2019 4:[address] ANGIOGRAM OF THE CHEST CLINICAL HISTORY: Dyspnea, chest pain POSSIBLE PULMONARY EMBOLISM COMPARISON STUDY: Chest x-ray dated 11/12/2019 TECHNIQUE: Following the IV administration of 120 mL of Optiray-320, CT angiogram of the thorax was performed from the thoracic inlet to the lung bases utilizing the pulmonary embolus protocol. Images are reviewed in the axial, sagittal, and coronal planes. IV contrast was administered without complication. MIP imaging was performed. A dose lowering technique was utilized adhering to the principles of ALARA. CT DOSE: 540.32 mGycm FINDINGS: No pathologically enlarged axillary mediastinal or hilar lymph nodes were visualized. There was no evidence of thoracic aortic dilatation. There are bilateral pulmonary artery filling defects indicative of acute bilateral pulmonary embolism. There is no evidence of significant right ventricular strain. No pleural effusions are visualized. There is mild elevation of the right hemidiaphragm. There are bilateral linear parenchymal opacities, likely representing subsegmental atelectasis. The study is compromised due to respiratory motion artifact. IMPRESSION: 1. Acute bilateral pulmonary embolism. ACT 112: Negative or not required by law. Electronically signed by: Louis Jesus M.D. 11/12/2019 5:28 PM ECG Data Attestation: I personally reviewed and interpreted this ECG as follows: Prior ECG tracings: available for review (Outpatient EKG completed earlier today) Interpretation: Normal sinus rhythm with a ventricular rate of 88 bpm. Prolonged QT 384, QTc 464. No ST elevation or depression. No T wave inversion. Comparison to EKG completed earlier today without significant abnormality. Blood Pressure Blood Pressure Findings: Elevated blood pressure Blood Pressure Disposition: elevated BP felt to be situational MDM Narrative This 54-year-old female patient presents to the emergency department today as a referral from cardiology for evaluation for possible PE. The patient experienced shortness of breath which came on suddenly last evening. This was associated with a short episode of chest pain. She was seen as an outpatient today and described her symptoms, and she has been traveling and had several procedures and hospitalizations over the past 6 months. Work-up here in the ED is consistent with acute bilateral PEs noted on CT angiogram. Laboratory evaluation without significant abnormality with the exception of a mildly elevated troponin. I discussed the case with my attending physician. We elec lenora to allow the hospitalist team to decide on the most appropriate anticoagulation given the patient's risk factors and history. I did discuss the case with the [facility] hospitalist group. They will see and evaluate the patient for admission and decide on anticoagulation. Please see hospitalist dictation regarding ongoing management care of this patient. The chart was completed utilizing [employer] voice recognition software. Grammatical errors, random word insertions, pronoun errors, and incomplete sentences are an occasional consequence of this system due to software limitatio ns, ambient noise, and hardware issues. Any formal questions or concerns about the content, text, or information contained within the body of this dictation should be directly addressed to the provider for clarification. Impression & Plan Bilateral pulmonary embolism, Meningioma, Chest pain, Acute dyspnea Discharge Plan Visit Data Chief Complaint: Cardiac Assessment Stated Complaint: SOB, ELEVATED BP, CHEST PAIN ED Provider: Sinan Campa ED Midlevel Provider: Bre Travis Discharge Problem: Bilateral pulmonary embolism, Meningioma, Chest pain, Acute dyspnea Patient Disposition: Admitted As Inpatient Discharge Instructions Interventions: ED Discharge Assessment Last Done: 11/12/19 20:05
--- NOTE | 2019-11-12 18:12 | History & Physical Report ---
Date of Service November 12, 2019 Assessment & Plan (1) Bilateral pulmonary embolism: -Admit to PCU -Start on heparin drip with bolus -consider discussion with neurology at [facility] regarding anticoagulation plans-platelets 175 on admission, discussion regarding risk of bleed was discussed with the patient and her at bedside -Check US BLE, possible provoked event with posterior tibialis tendinitis/plantar fasciitis, increased sedentary lifestyle due to increased lower extremity pain no family history of clotting disorders or previous PE/DVT -CTA reviewed, bilateral acute PE, initial set was elevated at 0.055 -O2 sats =90% on room air, currently requiring 2 L via NC - PT/OT consults for gait deficit s/p meningioma resection, encourage ambulation with assist (2) Meningioma: (3) Hx of resection of meningioma: -Follows with neurology at [facility] -Meningioma was resected 30 to 40% in May 2019 in [facility], by Dr. Figueroa, neurosurgery, follows now with oncology with [facility] -Continue Decadron 1mg BID (planning on transitioning to hydrocortisone due to concerns for pituitary insufficiency with meningioma), will need stress dose steroid if her pressure drops. -Continue on Keppra 1000 mg twice daily, recently stopped Trileptal due to proposed drug rash (4) Drug-induced skin rash: -Thought that this was secondary to Trileptal which has been stopped on 11/08, can finish last dose of prednisone 10 mg tonight. 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 Maurice who was researched by the family and recommended to the patient as surgeon due to the size and location of the meningioma. Patient was started on Decadron at that time and weaned down to 1 mg daily by end of August. She completed postoperative radiation here at [facility] x 19 out of 30. Her radiation was stopped due to hospitalization for aphasia and treatment of meningitis in early September 2019 where she stayed at [facility] x 2 weeks. During that time she was placed on steroids, antibiotics, antiepileptic medications due to severity of her status where she nearly . At that point she was discharged on trileptal as well as keppra. About 1 weeks ago she developed a rash that was thought to be due to a drug reaction from Trileptal, therefore this medication was stopped on 11/08, and she was placed on a short prednisone taper x 4 days by [facility] (while being on Decadron PO), with last dose of 10 mg scheduled for tonight. Since then the rash has improved but is still present over her back, chest, and arms. There is minimal itching. She reports significant weight gain since being on steroids. Interestingly, she was seen by sports medicine about 3 weeks ago due to plantar fascitis and posterior tibialis tendonitis in the R leg, where she was given a boot to assist with ambulation. Due to the pain in her lower leg, she has been increasingly sedentary, with only getting up out of chair to cook herself meals. She then developed same presentation in the L leg and thought this was the exact same thing. She did not have an ultrasound of either lower extremity d uring those events. She denies long car rides, plane rides, but admits to being much less active in past month. Patient noticed last night she became short of breath with exertion while trying to get dressed, this continued today. She was referred to [facility] by her PCP and from there was referred to the ER due to increased shortness of breath with speaking, intermittent chest pressure and an episode of diarrhea. He presented to the hospital and was found to have bilateral pulmonary embolism on CTA. Troponin is elevated at 0.055. Her pulse ox =90% on room air initially, currently O2 sats = 96% on 2 L at bedside. Her is present at bedside and supports the history. Patient will be started on heparin drip, risks and benefits were discussed with her at bedside. She denies any current chest pain, pressure or SOB at rest. Allergies Allergy/AdvReac Type Severity Reaction Status Date / Time oxcarbazepine Allergy Severe Rash Verified 11/12/19 16:47 [From Trileptal] hydrocodone Allergy Unknown vomiting Verified 11/12/19 16:46 gluten AdvReac Unknown GI upset Verified 11/12/19 16:46 corn AdvReac Gastrointestinal Verified 11/12/19 16:46 Upset Home Medications Home Medications Medication Instructions Recorded Confirmed Type escitalopram oxalate [Lexapro] 10 mg PO QAM 10/30/18 11/12/19 History levothyroxine [Synthroid] 125 mcg PO QAM 10/30/18 11/12/19 History cholecalciferol (vitamin D3) 125 125 mcg PO WEEKLY tab 07/15/19 11/12/19 History mcg (5,000 unit) disintegrating tablet clobetasol 0.05 % topical ointment 1 appln TOP BID PRN 07/15/19 11/12/19 History elderberry fruit 460 mg-elderberry 1 cap PO DAILY cap 07/15/19 11/12/19 History flower 115 mg capsule levetiracetam 500 mg tablet 1,000 mg PO BID 07/15/19 11/12/19 History pantoprazole 40 mg tablet,delayed 40 mg PO DAILY 07/15/19 11/12/19 History release prochlorperazine maleate 5 mg 5 mg PO QID PRN #30 tab 09/04/19 11/12/19 Rx tablet tramadol 50 mg tablet 50 mg PO Q8H PRN #60 tab 09/04/19 11/12/19 Rx amlodipine [Norvasc] 5 mg PO DAILY 11/12/19 11/12/19 History cetirizine [Zyrtec] 10 mg PO DAILY 11/12/19 11/12/19 History dexamethasone [Decadron] 4 mg PO UD 11/12/19 11/12/19 History pentoxifylline 400 mg PO BID 11/12/19 11/12/19 History prednisone 0 mg PO .TAPER UD 11/12/19 11/12/19 History triamcinolone acetonide 1 applic TOPICAL SPACE 11/12/19 11/12/19 History vitamin E (dl, acetate) 400 unit PO BID 11/12/19 11/12/19 History Past Med/Surg History Medical History Anxiety Encounter for pre-operative examination History of torn meniscus of left knee Hx of Ky thyroiditis Hypothyroidism IgA deficiency FOLLOWS WITH DR. NUNN/ [facility] Lichen sclerosus MGUS (monoclonal gammopathy of unknown significance) Migraine Nausea and vomiting after administration of anesthetic agent Osteoarthritis Surgical History (Updated 11/12/19 @ 19:07 by Jaja Agrawal PA-C) History of section X2 History of colonoscopy History of tonsillectomy Hx of abdominal surgery UTERINE ABLATION 2008 Family History Mother Hypothyroidism Alzheimer disease Father Pre-diabetes Social History Smoking Status: Never smoker Second Hand Exposure: No; Hx Alcohol Use: Yes Alcohol type: wine Alcohol Intake Frequency Comment: 2-3 imes per week Hx Substance Use: No Preferred Language: Kazakh Communication Ability: Effective Hearing Ability: Hard of Hearing Office Services Coordinator Required: No Beliefs That Will Affect Care: None marital status: Current Living Situation: Spouse current occupational status: previously employed current occupation: pediatric physical therapist Feels Safe at Home: Yes Safety Concerns: Feels Safe At This Time Childhood Exposure to Second-Hand Smoke: Yes caffeine: Yes (occ coffee, ) during the past year weight has: remained stable Dental Care, Regularly: Yes Physical Activity Frequency: 3-4 Times per Week Seatbelt Use: always Sunscreen Use: Yes Review of Systems Review of Systems: Constitutional: No fever, sweats or chills Eyes: No diplopia, no worsening or blurred vision ENT: normal hearing, no trouble swallowing Respiratory: As per HPI Cardiovascular: No chest pain, tightness or palpitations Abdomen: As per HPI, no pain, nausea, vomiting, or constipation Musculoskeletal: No joint pain, calf pain, swelling Neurologic: No weakness, numbness/tingling, + balance problems with gait Psychiatric: + Anxiety and depression on antidepressant Skin: Rash as per HPI Physical Exam Physical Exam: General: awake, alert, no apparent distress, + morbidly obese, adrian faced Head: Normocephalic, atraumatic ENT: PERRL, EOMI, no pharyngeal exudate, mucous membranes moist Chest: Clear to auscultation, on 2L via NC, no adventitious breath sounds Cardiac: Regular rate and rhythm, no murmur, no JVD, normal peripheral pulses, good capillary refill Abdominal: NABS x 4 quadrants, soft, nondistended, nontender to palpation, no rebound or guarding Extremities: Normal inspection, no peripheral edema or erythema, calfs nontender to palpation Skin: Maculopapular blanching erythematous rash overlying back, trunk, arms, worsened under breasts bilaterally Psych: Normal mood and affect Neuro: AAO x 3, strength intact bilaterally and rated 5/5, no motor deficits, gait not assessed, speech is clear, no peripheral sensory deficits Results & Data Results & Data ([facility]) Vital Signs (Past 12 Hours) Vital Signs Temp Pulse Pulse Resp BP BP Pulse Ox 11/12/19 18:04 81 18 134/87 95 11/12/19 17:00 75 18 142/95 H 93 11/12/19 16:25 81 18 132/98 96 11/12/19 15:42 82 18 134/88 95 11/12/19 15:35 88 L 11/12/19 15:08 37.0 C 95 H 20 146/84 H Diagnostic Findings XR chest 1V portable CLINICAL HISTORY: Dyspnea COMPARISON STUDY: 08/29/2019 FINDINGS: The heart is normal in size. There is mild elevation/eventration right hemidiaphragm. There are bilateral subsegmental atelectatic changes within the mid to lower lung zones. There is no failure. There are no significant pleural effusions.[ IMPRESSION: Bilateral subsegmental atelectatic change. ACT 112: Negative or not required by law. Electronically signed by: Louis Jesus M.D. 11/12/2019 4:[address] ANGIOGRAM OF THE CHEST CLINICAL HISTORY: Dyspnea, chest pain POSSIBLE PULMONARY EMBOLISM COMPARISON STUDY: Chest x-ray dated 11/12/2019 TECHNIQUE: Following the IV administration of 120 mL of Optiray-320, CT angiogram of the thorax was performed from the thoracic inlet to the lung bases utilizing the pulmonary embolus protocol. Images are reviewed in the axial, sagittal, and coronal planes. IV contrast was administered without complication. MIP imaging was performed. A dose lowering technique was utilized adhering to the principles of ALARA. CT DOSE: 540.32 mGycm FINDINGS: No pathologically enlarged axillary mediastinal or hilar lymph nodes were visualized. There was no evidence of thoracic aortic dilatation. There are bilateral pulmonary artery filling defects indicative of acute bilateral pulmonary embolism. There is no evidence of significant right ventricular strain. No pleural effusions are visualized. There is mild elevation of the right hemidiaphragm. There are bilateral linear parenchymal opacities, likely representing subsegmental atelectasis. The study is compromised due to respiratory motion artifact. IMPRESSION: 1. Acute bilateral pulmonary embolism. ECG Additional Comments: Normal sinus rhythm Moderate voltage criteria for LVH, may be normal variant Nonspecific T wave abnormality Prolonged QT Abnormal ECG When compared with ECG of 06-SEP-2019 11:59, Nonspecific T wave abnormality has replaced inverted T waves in Anterolateral leads 25mm/s 10mm/mV 150Hz 9.0.9 12SL 241 HD SCOTTIE: 12 Unconfirmed Vent. rate 88 BPM MT interval 130 ms QRS duration 80 ms QT/QTc 384/464 ms P-R-T axes 66 -2 -24 Code Status & VTE Plan Code Status Full code -discussed with the patient and her at bedside Supervising Physician Co-Signing Physician Notes I personally saw and examined the patient. I verified all soliz points and agree with ROMAINE Agrawal with the following exceptions and/or additions: 54-year-old female with complex recent history summarized below presents to the ER with sudden onset shortness of breath. She does note feeling short of breath on exertion for the last 2 days but became suddenly short of breath at rest starting last night. CT for PE confirms bilateral pulmonary emboli. Suspect this is provoked since for the last 4 weeks she has been using a brace on both lower legs Her , Dr. Domo Nelson (retired [facility] neurologist) who is very knowledgeable about her complex medical history. Majority of history is taken from him and prior notes. She was diagnosed with a large sphenoid wing meningioma with extension into the cavernous sinus in April 2019 causing mass-effect on brainstem and cavernous ICA with surprisingly mild symptoms of gait instability, diplopia, dizziness and pulsatile tinnitus in the right ear. She underwent partial resection in [place] by Dr. Hidalgo in May. On dexamethasone since this operation. Started external beam radiation therapy in [place] completing 18 of 30 scheduled rounds. However she developed increased lethargy, fever, fullness in the right ear, headaches, metallic taste in the back of her throat and subsequent imaging was concerning for meningitis versus cerebritis. There was also some concern that her symptoms started around the same time her dexamethasone was switched to hydrocortisone. She was started on empiric antibiotics and transferred to [facility] on September 02. Lumbar puncture was not performed for 5 days but ultimately did not grow any bacteria, however the opening pressure was elevated at 41. She developed expressive aphasia and worsening CALVIN (?vancomycin ?Contrast-induced). She became acutely unresponsive on September 11 and was transferred to the ICU. Started on high-dose dexamethasone due to increased edema, CT showed increased ventricle size. Repeat LP with opening pressure 46 (although patient agitated and restless), 30 cc drained. Trileptal added for possible seizures. She was ultimately discharged on September 19, 2019. Of note she did have an acute occlusive superficial venous thrombosis in the right cephalic vein and left basilic vein on September 13 upper extremity venous duplex (although suspect this was from peripheral IV lines). Currently on dexamethasone 1 mg p.o. twice daily with plans to switch to hydrocortisone per outpatient endocrinology recommendations. O/E WELL-APPEARING, no respiratory distress, HS1+2, no murmurs, RRR, Chest CTAB, no lateralizing weakness, very mild diplopia noted by patient, generalized maculopapular rash on back, chest, worse underneath bilateral breasts but deep skin folds appear unaffected A/P Bilateral PEs - meningioma surgery in May. No contraindication to anticoagulation. Suspect this was provoked by immobility from plantar fasciitis and posterior tibial tendinitis in addition to lack of calf movement from wearing her brace. Recommend anticoagulation for 6 months. Pituitary insufficiency - monitor for adrenal crisis as tapering off prednisone (given for suspected Trileptal induced rash) Generalized maculopapular rash -improving as per patient, suspected to be Trileptal induced, followed up with her wide area network systems administrator today (no tinea suspected per patient and her by her wide area network systems administrator) Plantar fasciitis - PT, continue compression stockings, heel supports, follow up with sports medicine Posterior tibial tendinitis -PT, can continue brace now on anticoagulation Hypothyroidism -initially diagnosed with Ky's however currently suspect she has pituitary insufficiency also contributing towards this, supported by low TSH and normal free T4. Continue levothyroxine 125 mcg p.o. every morning. Follow-up with endocrinology. PG Care Time/CCT Total # of Minutes Spent Total Time Spent with Patient: Total time spent is greater than 50% in coordination of care (as documented) at patient's floor/unit and/or counseling patient: Coding Level of Care Code 81658 Initial Inpt Care Lvl 3 Diagnoses Bilateral pulmonary embolism I26.99 Meningioma D32.9 Hx of resection of meningioma Z98.890; Z86.03 Drug-induced skin rash L27.0 Hypothyroidism E03.9 Posterior tibial tendinitis of both lower extremities M76.821; M76.822 Plantar fasciitis, bilateral M72.2 Pituitary insufficiency E23.0 DVT prophylaxis Z29.9
[2019-11-12] MEDS ORDERED: HEPARIN SODIUM/DEXTROSE 25,000 UNITS/500 ML BAG IV SCH (18:45)
[2019-11-12] MEDS ORDERED: HEPARIN SOD 5,000 UNIT/0.5 ML VIAL ONE (19:22)
[2019-11-12] MEDS ORDERED: HEPARIN SOD (PORCINE) 1000 UNIT/ML 10 ML VIAL ONE (19:23)
[2019-11-12] MEDS ORDERED: traMADol HCL 50 MG TABLET PO PRN ×2 (20:31)
[2019-11-12] MEDS ORDERED: PROCHLORPERAZINE MALEATE 5 MG TAB PO PRN ×2 (20:31)
[2019-11-12] MEDS ORDERED: ACETAMINOPHEN 325 MG TAB PO PRN (20:31)
[2019-11-12] MEDS ORDERED: predniSONE 10 MG TABLET PO ONE ×2 (20:31→21:00)
[2019-11-12] MEDS ORDERED: ONDANSETRON INJ 2 MG/ML 2 ML VIAL IV PRN (20:31)
[2019-11-12] MEDS ORDERED: dexAMETHasone 4 MG TAB PO SCH (20:31)
[2019-11-12] MEDS ORDERED: TRIAMCINOLONE ACET 0.1% CR 15 GM TUBE TOP SCH (20:31)
[2019-11-12] MEDS ORDERED: CHOLECALCIFEROL 125 MCG PO SCH (20:31)
[2019-11-12 20:33] LABS: T4 Free Thyroxine 1.33 ng/dl (0.8-1.6); Thyroid Stimulating Hormone 0.016 uIu/ml (0.300-4.500)
[2019-11-12] MEDS ORDERED: CLOBETASOL PROPIONATE 0.05% OINT 15 GM TUBE EXT PRN (20:55)
--- NOTE | 2019-11-12 20:55 | Ultrasound Report ---
US venous doppler LE BI CLINICAL HISTORY: Pulmonary embolism. COMPARISON STUDY: 08/11/2012 FINDINGS: Grayscale, color-flow, Doppler spectral waveform analysis was performed. On the right, no thrombus is visualized in the common femoral superficial femoral or popliteal veins. There is a below the calf right posterior tibial vein thrombus. No thrombus is visualized in the per [place] and anterior tibial veins. On the left, no thrombus is visualized within the common femoral vein. There is thrombus extending fr om the mid superficial femoral vein into the calf. IMPRESSION: Acute bilateral DVT. ACT 112: Negative or not required by law. Electronically signed by: Louis Jesus M.D. 11/12/2019 8:54 PM
[2019-11-12] MEDS: dexAMETHasone 1 MG TAB PO SCH (21:47)
[2019-11-12] MEDS: levETIRAcetam 500 MG TAB PO SCH (21:48)
[2019-11-12] MEDS: TOCOPHERYL, DL-ALPHA 400 UNITS CAP PO SCH (21:49)
[2019-11-12] MEDS: PENTOXIFYLLINE 400MG EXT REL TAB PO SCH (21:49)
[2019-11-12] MEDS: TRIAMCINOLONE ACET 0.1% CR 15 GM TUBE TOP SCH (21:50)
[2019-11-12] MEDS: CETIRIZINE HCL 10 MG TABLET PO SCH (21:50)
[2019-11-13 01:33] LABS: Hematocrit (blood only) 38.2 % (37-47); Hemoglobin 12.8 g/dL (12.0-16.0); Mean Corpuscular Hemoglobin 28.4 pg (25-34); Mean Corpuscular Hgb Conc 33.5 g/dL (32-36); Mean Corpuscular Volume 84.9 fL (80-100); Mean Platelet Volume 9.2 fL (7.4-10.4); Nucleated RBC # (auto) 0.07 K/uL (0-0); Nucleated RBC % (auto) 0.5 %; Platelet Count 225 K/uL (130-400); RDW Coefficient of Variation 18.2 % (11.5-14.5); RDW Standard Deviation 55.8 fL (36.4-46.3); White Blood Count 14.34 K/uL (4.8-10.8)
[2019-11-13 02:26] LABS: Partial Thromboplastin Ratio 2.4; Partial Thromboplastin Time 67.8 Seconds (21.0-31.0)
[2019-11-13 02:28] LABS: Albumin Level 3.3 gm/dl (3.4-5.0); Bilirubin,Total 0.6 mg/dl (0.2-1); Calcium 9.3 mg/dl (8.5-10.1); Creatinine Clr Calc Pharmacy 78.4 ml/min; Est GFR (African American) 75.8; Est GFR (Non-African American) 65.4; Total Protein 7.1 gm/dl (6.4-8.2)
[2019-11-13 02:31] LABS: Globulin 3.8 gm/dl (2.5-4.0)
[2019-11-13 02:35] LABS: Albumin Globulin Ratio 0.9 (0.9-2); BUN Creatinine Ratio 21.1 (10-20)
[2019-11-13] MEDS: LEVOTHYROXINE SODIUM 125 MCG TABLET PO SCH (06:32)
--- NOTE | 2019-11-13 06:59 | Electrocardiogram Report ---
Test Reason : Blood Pressure : / mmHG Vent. Rate : 088 BPM Atrial Rate : 088 BPM P-R Int : 130 ms QRS Dur : 080 ms QT Int : 384 ms P-R-T Axes : 066 -02 -24 degrees QTc Int : 464 ms Normal sinus rhythm Moderate voltage criteria for LVH, may be normal variant Nonspecific T wave abnormality Abnormal ECG When compared with ECG of 06-SEP-2019 11:59, Nonspecific T wave abnormality has replaced inverted T waves in Anterolateral leads Confirmed by Arie Saez ([id number]) on 11/13/2019 6:58:50 AM Referred By: Confirmed By:Arie Saez
[2019-11-13] MEDS: PANTOprazole 40 MG TAB PO SCH (08:21)
[2019-11-13 08:36] LABS: Partial Thromboplastin Ratio 2.6
[2019-11-13 08:44] LABS: Potassium 3.8 mmol/L (3.5-5.1)
[2019-11-13] MEDS ORDERED: CETIRIZINE HCL 10 MG TABLET PO SCH (09:00)
[2019-11-13] MEDS ORDERED: ELDERBERRY FRUIT AND FLOWER PO SCH (09:00)
[2019-11-13] MEDS: amLODIPine BESYLATE 5 MG TAB PO SCH (09:12)
[2019-11-13] MEDS: TOCOPHERYL, DL-ALPHA 400 UNITS CAP PO SCH ×2 (09:13→23:37)
[2019-11-13] MEDS: ESCITALOPRAM OXALATE 10 MG TAB PO SCH (09:13)
[2019-11-13] MEDS: levETIRAcetam 500 MG TAB PO SCH ×2 (09:13→21:31)
[2019-11-13] MEDS: PENTOXIFYLLINE 400MG EXT REL TAB PO SCH ×2 (09:13→23:37)
[2019-11-13] MEDS: dexAMETHasone 1 MG TAB PO SCH ×2 (09:13→21:30)
[2019-11-13] MEDS: TRIAMCINOLONE ACET 0.1% CR 15 GM TUBE TOP SCH ×3 (09:22→21:33)
--- NOTE | 2019-11-13 12:05 | Hospitalist Progress Note ---
Date of Service November 13, 2019 Assessment & Plan (1) Bilateral pulmonary embolism: -Admit to PCU -Start on heparin drip with bolus - discussed anticoagulation with pt's neurosurgeon, Dr. Davis at [place] who agreed with initiation of DOAC, such as Eliquis. Will also consider that the pt may require IVC filter placement in the event that she would need further surgical resection of the meningioma. Nonemergent at this time but pt is fully anticoagulated on heparin. Continue heparin gtt for now, plan transition to eliquis after vascular input. - Consult vascular surgery - US BLE with DVT bilateral LE. possible provoked event with posterior tibialis tendinitis/plantar fasciitis, increased sedentary lifestyle due to increased lower extremity pain no family history of clotting disorders or previous PE/DVT - CTA reviewed, bilateral acute PE, initial trop was elevated at 0.055 - Ambulatory pulse ox today, will need O2 on dc - PT/OT consults for gait deficit s/p meningioma resection, encourage ambulation with assist (2) Meningioma: (3) Hx of resection of meningioma: -Follows with neurology at [facility] and neurosurgery at [facility] and [place] - Discussed anticoagulation as above with Dr. Davis. -Meningioma was resected 30 to 40% in May 2019 in [facility], by Dr. Figueroa, neurosurgery -Continue Decadron 1mg BID (planning on transitioning to hydrocortisone due to concerns for pituitary insufficiency with meningioma), will need stress dose steroid if her pressure drops. -Continue on Keppra 1000 mg twice daily, recently stopped Trileptal due to proposed drug rash (4) Drug-induced skin rash: -Thought that this was secondary to Trileptal which has been stopped on 11/08, can finish last dose of prednisone 10 mg tonight. Continue triamcinolone cream topically, and cetirizine, improving. (5) Hypothyroidism: -Continue levothyroxine (6) Posterior tibial tendinitis of both lower extremities: See supervising physician note (7) Plantar fasciitis, bilateral: See supervising physician note (8) Pituitary insufficiency: See supervising physician note (9) DVT prophylaxis: - teds, IV heparin CODE: Full code Dispo: From home, likely to remain in the hospital x 2 days Admission and Anticipated Discharge Date Admission Date: November 12, 2019 Supervising Physician Co-Signing Physician Notes Patient seen and examined with Stephanie GAVIN. I have reviewed the chart including labs, imaging and assessment/plan. Met with patient and her at the bedside. She was fairly comfortable at rest, but requiring 3L NC she became very dyspneic on exertion, required 4L with ambulation, HR up into the 120's discussed possible IVC filter, vascular would not recommend patient wishing to go home discussed that I would like to watch her over night explained that PE often do not cause hypoxia, and despite her having healthy lungs, she was on 4L and tachypneic will switch to Eliquis 10mg BID watch over night plan for discharge in the morning - Bilateral PE, bilateral DVT likely provoked with her meningioma and recent surgeries earlier this summer initially on heparin drip change to Eliquis 10mg BID x 7 days then 5mg BID indefinitely will likely need lifelong anticoagulation as long as she has malignancy - Acute hypoxic respiratory failure requiring 2 L at rest and 4L on exertion minimal reserve, very dyspneic on exertion, tachycardic will watch over night to make sure she remains stable arranged for home oxygen when ready for discharge tomorrow morning Subjective The patient was seen and examined this morning. Pt states breathing is about the same. She required increased O2 overnight to 4L. She was ambulating earlier today on 2-4L and sats dropped to mid 80s but quickly rebounded to the mid 90s once sitting down. She denies any other complaints currently. No signs of bleeding. Ambulating with walker without difficulty for endurance, not necessarily for balance issues. Discussed anticoagulation with the patient and her - pt is a candidate for a DOAC. Also discussed this with the patients neurosurgeon in [place], Dr. Hernandez who also agreed with initiation of eliquis via phone call. There was discussion about possible needs for IVC filter placemate and whether this would be necessary for possible further meningioma resection in the future. Review of Systems Review of Systems: Constitutional: No fever, sweats or chills Eyes: No diplopia, no worsening or blurred vision ENT: normal hearing, no trouble swallowing Respiratory: As per HPI, No cough, sputum, on 4L O2 Cardiovascular: No chest pain, tightness or palpitations Abdomen: No pain, nausea, vomiting, diarrhea or constipation Musculoskeletal: No joint pain, calf pain, swelling Neurologic: No weakness, numbness/tingling, or balance problems Psychiatric: No anxiety or depression Skin: No rash or itch Physical Exam Physical Exam: General: awake, alert, no apparent distress Head: Normocephalic, atraumatic ENT: PERRL, EOMI, no pharyngeal exudate, mucous membranes moist Chest: On 4 L via NC, no adventitious breath sounds Cardiac: Regular rate and rhythm, no murmur, no JVD, normal peripheral pulses, good capillary refill Abdominal: NABS x 4 quadrants, soft, nondistended, nontender to palpation, no rebound or guarding Extremities: Normal inspection, no peripheral edema or erythema, calfs nontender to palpation Psych: Normal mood and affect Neuro: AAO x 3, strength intact bilaterally and rated 5/5, no motor deficits, speech is clear, no peripheral sensory deficits Results & Data Results & Data ([facility]) Vital Signs (Past 12 Hours) Vital Signs Temp Pulse Resp BP Pulse Ox 11/13/19 08:00 37.0 C 93 H 20 130/83 91 11/13/19 05:10 37.5 C 98 H 20 131/79 92 PG Care Time/CCT Total # of Minutes Spent Total Time Spent with Patient: Total time spent is greater than 50% in coordination of care (as documented) at patient's floor/unit and/or counseling patient: Coding Level of Care Code 92500 Inpt Consult Level 5 Diagnoses Bilateral pulmonary embolism I26.99 Meningioma D32.9 Hx of resection of meningioma Z98.890; Z86.03 Drug-induced skin rash L27.0 Hypothyroidism E03.9 Posterior tibial tendinitis of both lower extremities M76.821; M76.822 Plantar fasciitis, bilateral M72.2 Pituitary insufficiency E23.0 DVT prophylaxis Z29.9
[2019-11-13] MEDS ORDERED: APIXABAN 5 MG TABLET PO ONE (14:15)
--- NOTE | 2019-11-13 14:37 | Consultation ---
Date of Consultation November 13, 2019 Assessment & Plan (1) Bilateral pulmonary embolism: Pt with acute BL PE and BLE DVT. Pt currently anticoagulated on heparin. Recommend start oral AC when medically indicated. No indications for IVC filter insertion at this time, but would be indicated if pt requires interruption of AC for surgery in the next few months. Recommend IVC filter placement at time of AC interruption. Pt aware and agreeable. Please call if needed. History of Present Illness Reason for Consultation: DVT/PE, eval for IVC filter Attending Physician: Manny Crews DO History of Present Illness 54 yo f with PMH positive for large meningioma and subsequent 40% partial resection in 05/2019 in [place], as well as pituitary insufficiency, hypothyroidism, admitted with BL pulmonary emboli and BLE DVT, seen in consultation today for eval for IVC filter placement as she is expected to undergo further surgery in future. Pt states she initially did well after her craniotomy and was active until an acute event in early September 2019, when she had expressive aphasia and sudden decline felt to possibly be due to radiation toxicity vs meningitis. She has since stopped all radiation treatments and has been slowly increasing her activity level, but developed BLE pain in plantar feet/heel area and ankles a few weeks ago. She started wearing a walking boot and resting her legs, and so was relatively inactive. She developed SOB and DEL REAL and came to [facility] for eval yesterday and was found to have PE. Denies associated edema of BLE or hx of DVT/PE in past. States SOB is improved, but still DEL REAL. Denies LARSEN, fever, chills, chest pain, abd pain, N/V, rest pain, claudication, other complaints. States her BLE ankle pain is resolved, but her heels are still sore when ambulating. CTA chest demonstrates BL PE's. BLE venous US demonstrates RLE post tib DVT and LLE femoral vein DVT. Allergies Allergy/AdvReac Type Severity Reaction Status Date / Time oxcarbazepine Allergy Severe Rash Verified 11/12/19 16:47 [From Trileptal] hydrocodone Allergy Unknown vomiting Verified 11/12/19 16:46 gluten AdvReac Unknown GI upset Verified 11/12/19 16:46 corn AdvReac Gastrointestinal Verified 11/12/19 16:46 Upset Home Medications Home Medications Medication Instructions Recorded Confirmed Type escitalopram oxalate [Lexapro] 10 mg PO QAM 10/30/18 11/12/19 History levothyroxine [Synthroid] 125 mcg PO QAM 10/30/18 11/12/19 History cholecalciferol (vitamin D3) 125 125 mcg PO WEEKLY tab 07/15/19 11/12/19 History mcg (5,000 unit) disintegrating tablet clobetasol 0.05 % topical ointment 1 appln TOP BID PRN 07/15/19 11/12/19 History elderberry fruit 460 mg-elderberry 1 cap PO DAILY cap 07/15/19 11/12/19 History flower 115 mg capsule levetiracetam 500 mg tablet 1,000 mg PO BID 07/15/19 11/12/19 History pantoprazole 40 mg tablet,delayed 40 mg PO DAILY 07/15/19 11/12/19 History release prochlorperazine maleate 5 mg 5 mg PO QID PRN #30 tab 09/04/19 11/12/19 Rx tablet tramadol 50 mg tablet 50 mg PO Q8H PRN #60 tab 09/04/19 11/12/19 Rx amlodipine [Norvasc] 5 mg PO DAILY 11/12/19 11/12/19 History cetirizine [Zyrtec] 10 mg PO DAILY 11/12/19 11/12/19 History dexamethasone [Decadron] 4 mg PO UD 11/12/19 11/12/19 History pentoxifylline 400 mg PO BID 11/12/19 11/12/19 History prednisone 0 mg PO .TAPER UD 11/12/19 11/12/19 History triamcinolone acetonide 1 applic TOPICAL SPACE 11/12/19 11/12/19 History vitamin E (dl, acetate) 400 unit PO BID 11/12/19 11/12/19 History Patient History Medical History Anxiety Encounter for pre-operative examination History of torn meniscus of left knee Hx of [place] thyroiditis Hypothyroidism IgA deficiency FOLLOWS WITH DR. NUNN/ [facility] Lichen sclerosus MGUS (monoclonal gammopathy of unknown significance) Migraine Nausea and vomiting after administration of anesthetic agent Osteoarthritis Surgical History History of section X2 History of colonoscopy History of tonsillectomy Hx of abdominal surgery UTERINE ABLATION 2008 Family History Mother Hypothyroidism Alzheimer disease Father Pre-diabetes Social History Smoking Status: Never smoker Second Hand Exposure: No; Hx Alcohol Use: Yes Alcohol type: wine Alcohol Intake Frequency Comment: 2-3 imes per week Hx Substance Use: No Preferred Language: [place] Island[place] Communication Ability: Effective Hearing Ability: Hard of Hearing Mines Safety Engineer Required: No Beliefs That Will Affect Care: None marital status: Current Living Situation: Spouse current occupational status: previously employed current occupation: pediatric physical therapist Feels Safe at Home: Yes Safety Concerns: Feels Safe At This Time Childhood Exposure to Second-Hand Smoke: Yes caffeine: Yes (occ coffee, ) during the past year weight has: remained stable Dental Care, Regularly: Yes Physical Activity Frequency: 3-4 Times per Week Seatbelt Use: always Sunscreen Use: Yes Review of Systems Review of Systems: All systems reviewed & are unremarkable except as noted in HPI & below Physical Exam Constitutional: well developed, well nourished, + obese, healthy appearing, cooperative and comfortable; not in distress Eyes: PERRL, conjunctivae normal, anicteric sclerae ENMT: external ear and nose normal, oropharynx normal Ears: no hearing impairment Neck: normal visual inspection and trachea midline Respiratory: normal respiratory effort and able to speak in complete sentences Auscultation: lungs clear to auscultation bilaterally Cardiovascular: RRR, no murmur, no edema Gastrointestinal (Abdomen): normal bowel sounds, soft, nontender, no hepatosplenomegaly Musculoskeletal: no cyanosis or clubbing, extremities motor strength 5/5 Neurologic: moves all extremities and awake; no focal motor deficits and not confused Psychiatric: A+Ox3, euthymic affect Results & Data ([facility]) Vital Signs (Past 12 Hours) Vital Signs Temp Pulse Resp BP Pulse Ox Pulse Ox Pulse Ox 11/13/19 12:55 90 93 11/13/19 08:00 37.0 C 93 H 20 130/83 91 11/13/19 05:10 37.5 C 98 H 20 131/79 92 Pulse Ox 11/13/19 12:55 85 L 11/13/19 08:00 11/13/19 05:10
[2019-11-13] MEDS: CETIRIZINE HCL 10 MG TABLET PO SCH (23:37)
[2019-11-14] MEDS ORDERED: APIXABAN 5 MG TABLET PO SCH
[2019-11-14 06:12] LABS: Hematocrit (blood only) 34.1 % (37-47); Hemoglobin 11.7 g/dL (12.0-16.0); Mean Corpuscular Hemoglobin 29.3 pg (25-34); Mean Corpuscular Hgb Conc 34.3 g/dL (32-36); Mean Corpuscular Volume 85.3 fL (80-100); Mean Platelet Volume 8.9 fL (7.4-10.4); Platelet Count 176 K/uL (130-400); RDW Coefficient of Variation 17.6 % (11.5-14.5); White Blood Count 8.81 K/uL (4.8-10.8)
[2019-11-14] MEDS: LEVOTHYROXINE SODIUM 125 MCG TABLET PO SCH (06:33)
[2019-11-14 06:46] LABS: BUN Creatinine Ratio 24.3 (10-20); Calcium 8.9 mg/dl (8.5-10.1); Creatinine Clr Calc Pharmacy 112.1 ml/min; Est GFR (African American) 114.4; Est GFR (Non-African American) 98.7; Potassium 3.7 mmol/L (3.5-5.1)
[2019-11-14 06:49] LABS: Albumin Globulin Ratio 0.9 (0.9-2); Bilirubin,Total 0.6 mg/dl (0.2-1); Globulin 3.5 gm/dl (2.5-4.0); Total Protein 6.5 gm/dl (6.4-8.2)
[2019-11-14] MEDS: amLODIPine BESYLATE 5 MG TAB PO SCH (07:20)
[2019-11-14] MEDS: PANTOprazole 40 MG TAB PO SCH ×2 (07:21→09:30)
[2019-11-14] MEDS: ESCITALOPRAM OXALATE 10 MG TAB PO SCH (07:21)
[2019-11-14] MEDS: TRIAMCINOLONE ACET 0.1% CR 15 GM TUBE TOP SCH (07:22)
[2019-11-14] MEDS ORDERED: APIXABAN 5 MG TABLET PO ONE (09:00)
[2019-11-14] MEDS: levETIRAcetam 500 MG TAB PO SCH (09:12)
[2019-11-14] MEDS: TOCOPHERYL, DL-ALPHA 400 UNITS CAP PO SCH (09:13)
[2019-11-14] MEDS: PENTOXIFYLLINE 400MG EXT REL TAB PO SCH (09:13)
[2019-11-14] MEDS: dexAMETHasone 1 MG TAB PO SCH (09:13)
--- NOTE | 2019-11-16 19:24 | Discharge Summary ---
Date of Service November 14, 2019 Admission HPI Per Admitting Provider This is a 54 yo F with significant PMHx of large right sphenoid wing meningioma diagnosed April 2019, underwent resection on 05/27/2019 in [place], [place] by Dr. Maurice who was researched by the family and recommended to the patient as surgeon due to the size and location of the meningioma. Patient was started on Decadron at that time and weaned down to 1 mg daily by end of August. She completed postoperative radiation here at [facility] x 19 out of 30. Her radiation was stopped due to hospitalization for aphasia and treatment of meningitis in early September 2019 where she stayed at [facility] x 2 weeks. During that time she was placed on steroids, antibiotics, antiepileptic medications due to severity of her status where she nearly . At that point she was discharged on trileptal as well as keppra. About 1 weeks ago she developed a rash that was thought to be due to a drug reaction from Trileptal, therefore this medication was stopped on 11/08, and she was placed on a short prednisone taper x 4 days by [place] [facility] (while being on Decadron PO), with last dose of 10 mg scheduled for tonight. Since then the rash has improved but is still present over her back, chest, and arms. There is minimal itching. She reports significant weight gain since being on steroids. Interestingly, she was seen by sports medicine about 3 weeks ago due to plantar fascitis and posterior tibialis tendonitis in the R leg, where she was given a boot to assist with ambulation. Due to the pain in her lower leg, she has been increasingly sedentary, with only getting up out of chair to cook herself meals. She then developed same presentation in the L leg and thought this was the exact same thing. She did not have an ultrasound of either lower extremity during those events. She denies long car rides, plane rides, but admits to being much less active in past month. Patient noticed last night she became short of breath with exertion while trying to get dressed, this continued today. She was referred to [facility] by her PCP and from there was referred to the ER due to increased shortness of breath with speaking, intermittent chest pressure and an episode of diarrhea. He presented to the hospital and was found to have bilateral pulmonary embolism on CTA. Troponin is elevated at 0.055. Her pulse ox =90% on room air initially, currently O2 sats = 96% on 2 L at bedside. Her is present at bedside and supports the history. Patient will be started on heparin drip, risks and benefits were discussed with her at bedside. She denies any current chest pain, pressure or SOB at rest. Principal Diagnosis Bilateral pulmonary emboli Discharge Exam Constitutional well developed, + obese and comfortable; no acute distress Eyes PERRL, conjunctivae normal, anicteric sclerae ENMT external ear and nose normal, oropharynx normal Neck trachea midline, no thyromegaly Respiratory normal respiratory effort and able to speak in complete sentences; no respiratory distress and no cough Auscultation: lungs clear to auscultation bilaterally; no crackles, no rales, no rhonchi and no wheezes Cardiovascular Rate/Rhythm: regular rate and regular rhythm Heart Sounds: normal S1 and normal S2; no murmur Extremities: normal capillary refill; no edema Gastrointestinal (Abdomen) normal bowel sounds, soft, nontender, no hepatosplenomegaly Musculoskeletal no cyanosis or clubbing, extremities motor strength 5/5 Skin no rashes, warm and dry Neurologic patellar DTR's 2+ bilat, sensation intact and PERRL, EOMI, accommodation nl, no face palsy, no dysarthria Psychiatric A+Ox3, euthymic affect Lymphatic no cervical or axillary lymphadenopathy Discharge Data Allergies Allergy/AdvReac Type Severity Reaction Status Date / Time oxcarbazepine Allergy Severe Rash Verified 11/12/19 16:47 [From Trileptal] hydrocodone Allergy Unknown vomiting Verified 11/12/19 16:46 gluten AdvReac Unknown GI upset Verified 11/12/19 16:46 corn AdvReac Gastrointestinal Verified 11/12/19 16:46 Upset Consultations 11/12/19 18:02 ED Decision to Admit Stat 11/12/19 20:31 Consult Case Management - Discharge Planning Routine 11/13/19 11:58 Consult Vascular Surgery Routine Ordered Studies 11/12/19 15:31 CT angio chest PE protocol Stat 11/12/19 18:45 US venous doppler LE Stat Hospital Course (1) Bilateral pulmonary embolism: considered provoked with recent neurological surgery and ongoing meningioma CTA showed bilateral PE venous dopplers with bilateral DVT but none in the deep femoral or iliac veins brief discussion with vascular surgery about need for IVC filter, there is no indication at this time treated initially with heparin drip, discussed anticoagulation with neurosurgeon at [facility] recommend NOAC, will use Eliquis started on Eliquis 10mg BID, will complete 7 days and then reduce to 5mg BID initially with tachycardia but HR slowly improved no evidence of right heart strain on CTA chest with dyspnea on exertion but she was able to walk the entire length of the hallway 2 step performed, she will need 2L at rest and 4L on exertion discussed that over the next 1-2 weeks her oxygen requirements should improve or even resolve she has a finger pulse oximeter at home, will monitor again, discharge home on Eliquis 10mg BID x 6 more days and then 5mg BID would anticipate lifelong anticoagulation as clots occurred in setting of meningioma which at this time will not be resected further follow up with PCP (2) Acute respiratory failure with hypoxia: due to bilateral PE initially she was tachypneic and very short of breath with minimal exertion her dyspnea has improved greatly performed 2 step the evening prior to discharge, recommended 2L at rest and 4L on exertion anticipate her to require oxygen for the next 1-2 weeks but should resolved as pulmonary emboli are treated (3) DVT, bilateral lower limbs: found on venous doppler no leg swelling, no calf tenderness treat with Eliquis described above again, no role for IVC filter (4) Meningioma: (5) Hx of resection of meningioma: -Follows with neurology at [facility] and neurosurgery at [facility] and [place] - Discussed anticoagulation as above with Dr. Davis. -Meningioma was resected 30 to 40% in May 2019 in [facility], by Dr. Figueroa, neurosurgery -Continue Decadron 1mg BID -Continue on Keppra 1000 mg twice daily, recently stopped Trileptal due to proposed drug rash follow up routinely with neurology and neurosurgery (6) Drug-induced skin rash: -Thought that this was secondary to Trileptal which has been stopped on 11/08, can finish last dose of prednisone 10 mg Continue triamcinolone cream topically, and cetirizine, improving. (7) Hypothyroidism: -Continue levothyroxine (8) Posterior tibial tendinitis of both lower extremities: See supervising physician note (9) Plantar fasciitis, bilateral: See supervising physician note (10) Pituitary insufficiency: See supervising physician note Total Time Total Time Spent Total Time Spent (In Minutes): 35 minuted Total Time Includes: Examination of the Patient, Discharge Planning, Medication Reconciliation and Other (discussion with her ) Discharge Plan Discharge Items Patient Disposition: Home - Self-Care Reason For Visit: BILATERAL PE Discharge Diagnosis: Bilateral pulmonary emboli Bilateral lower extremity DVT Acute hypoxic respiratory failure Condition on Discharge: Good Goals: treat blood clots with eliquis titrate down off of oxygen, likely over next 1-2 weeks Activity: Per Instructions section Bathing: No limitations Exercise/Sports: Wait until after follow-up appointment Weightbearing: Full weightbearing Non-emergency contact: Primary Care Provider Call non-emergency contact if: you have any medication questions, your symptoms worsen and you have a fever Follow-up/Referrals: Alicia Acosta DO [Primary Care Provider] - (this week) Diet: Regular Addtl Attending Provider Instructions: Medications: - ELIQUIS: take 10mg twice a day for 6 more days then reduce to 5mg twice a day and take this indefinitely Bilateral pulmonary emboli, bilateral lower extremity DVT, acute hypoxic respiratory failure treated initially with heparin drip checked with neurosurgery, okay with NOAC, will use Eliquis the dosing for acute PE and DVT is 10mg BID x 7 days then reduce to 5mg BID you qualify for home oxygen, you have been prescribed 2L at all times and 4L on exertion I anticipate your oxygen requirements should taper off over the next 1-2 we eks saturation goal is 90%, get a pulse oximeter at home and check your oxygen throughout the day get rest, it is important to walk around periodically but do not perform any strenuous activity for at least two weeks the clots will slowly break down, the Eliquis should prevent any new blood clots from forming Pending Studies at Discharge: No Stand-Alone Forms: [facility], Smoking Cessation Medications and DC Order Prescriptions: New Eliquis 5 mg Tablet 10 mg PO BID 6 Days Qty: 24 RF: 0 Eliquis 5 mg tablet 5 mg PO BID Qty: 60 RF: 5 Continued levetiracetam [Keppra] 500 mg tablet 1,000 mg PO BID RF: 0 pantoprazole [Protonix] 40 mg tablet,delayed release (DR/EC) 40 mg PO DAILY RF: 0 elderberry fruit and flower 460-115 mg capsule 1 cap PO DAILY RF: 0 clobetasol 0.05 % ointment 1 appln TOP BID PRN (Reason: BREAKOUTS) RF: 0 cholecalciferol (vitamin D3) 125 mcg (5,000 unit) tablet,disintegrating 125 mcg PO WEEKLY RF: 0 tramadol 50 mg tablet 50 mg PO Q8H PRN (Reason: pain) Qty: 60 RF: 3 prochlorperazine maleate [Compazine] 5 mg tablet 5 mg PO QID PRN (Reason: nausea and vomiting) Qty: 30 RF: 2 prednisone 20 mg tablet 0 mg PO .TAPER UD RF: 0 amlodipine [Norvasc] 5 mg tablet 5 mg PO DAILY RF: 0 triamcinolone acetonide 0.1 % cream 1 applic TOPICAL SPACE RF: 0 pentoxifylline 400 mg tablet extended release 400 mg PO BID RF: 0 cetirizine [Zyrtec] 10 mg Tablet 10 mg PO DAILY RF: 0 dexamethasone [Decadron] 4 mg tablet 4 mg PO UD RF: 0 vitamin E (dl, acetate) 400 unit capsule 400 unit PO BID RF: 0 levothyroxine [Synthroid] 125 mcg Tablet 125 mcg PO QAM RF: 0 escitalopram oxalate [Lexapro] 10 mg Tablet 10 mg PO QAM RF: 0 Discharge Orders: Discharge Order (Routine); Ordered 11/14/19 Ordered By: Manny Crews Admission Data Admit Date/Time: 11/12/19 18:45 Attending Provider: Manny Crews Admit Provider: Kevyn Coleman Primary Care Provider: Alicia Acosta Other Providers: Kevyn Coleman ; Artem Mac Other Interventions: Discharge Summary Assessment (RN) Last Done: 11/14/19 08:56 Coding Level of Care Code D/C Day Management >30 mins Diagnoses Bilateral pulmonary embolism I26.99 Acute respiratory failure with hypoxia J96.01 DVT, bilateral lower limbs I82.403 Meningioma D32.9 Hx of resection of meningioma Z98.890; Z86.03 Drug-induced skin rash L27.0 Hypothyroidism E03.9 Posterior tibial tendinitis of both lower extremities M76.821; M76.822 Plantar fasciitis, bilateral M72.2 Pituitary insufficiency E23.0
[2019-11-17] MEDS ORDERED: CHOLECALCIFEROL 1,000 UNITS 25 MCG TAB PO SCH (09:00)
== END 2019-11-14 09:45 | disposition home or self-care (01) | DRG 175 ==
LOC: ED 15:00 → SUATTDRO 18:45 → 2S 18:45

== ENCOUNTER 2020-03-09 11:20 | Inpatient (IN) ==
[2020-03-09] MEDS ORDERED: CEFEPIME 2,000 MG/20 ML VIAL IV STA (11:32)
[2020-03-09] MEDS ORDERED: VANCOMYCIN HCL 2,500 MG in SODIUM CHLORIDE 0.9% 500 ML IV ONE (11:32)
[2020-03-09] MEDS ORDERED: VANCOMYCIN CONSULT ACTIVE PRN ×2 (11:32→16:30)
[2020-03-09] MEDS ORDERED: SODIUM CHLORIDE 0.9% 1000ML 1,000 ML IV SCH ×2 (11:45)
[2020-03-09] MEDS ORDERED: HYDROCORTISONE SOD SUCCINATE 100 MG/2 ML VIAL IV STA (11:49)
[2020-03-09] MEDS ORDERED: SODIUM CHLORIDE 0.9% 1000ML 500 ML IV ONE ×2 (11:50→13:04)
--- NOTE | 2020-03-09 11:50 | XRay Report ---
SINGLE VIEW CHEST CLINICAL HISTORY: Sepsis. FINDINGS: An AP, portable, upright chest radiograph is compared to study dated 11/12/2019 and correlate d with chest CT dated 12/16/2019. The cardiomediastinal silhouette is unremarkable. There is chronic e levation of the right hemidiaphragm. Bibasilar scarring/atelectasis is similar to previous. There is no evidence of superimposed airspace consolidation or large pleural effusion. No pneumothorax is seen . The bony thorax is grossly intact. IMPRESSION: No active disease in the chest. ACT 112: Negative or not required by law. Electronically signed by: Yeyo Arriola M.D. 03/09/2020 11:48 AM
[2020-03-09] MEDS ORDERED: ONDANSETRON INJ 2 MG/ML 2 ML VIAL IV STA (11:52)
[2020-03-09] MEDS ORDERED: ACETAMINOPHEN 500 MG TAB PO STA (11:52)
[2020-03-09] MEDS ORDERED: LACTATED RINGER'S 1,000 ML IV SCH ×2 (12:00→12:51)
--- NOTE | 2020-03-09 12:03 | Emergency Department Note ---
Impression & Plan Sepsis ED Provider Note INFORMANT: Patient ED PROVIDER(S): Toni Mosqueda MD CHIEF COMPLAINT: Flulike symptoms PLAN: Disposition: Admitted Condition: Guarded MEDICAL DECISION MAKING: Patient presented with flulike symptoms and urinary complaints. She was febrile, tachycardic, and hypotensive. She was attended to promptly and had IVs established. Fluid resuscitation initiated. Because of her chronic steroid use she was given hydrocortisone IV. Broad-spectrum antibiotic coverage was initiated with cefepime and vancomycin. The patient also received Zofran and Tylenol. On reassessment she was feeling better. The patient had improvement of her blood pressure. Her CBC showed a leukocytosis. Chemistry panel revealed acute kidney injury. The patient did have a concerning urinalysis. Her lactate was mildly elevated. She did receive 30 mL/kg of crystalloid resuscitation. The lactate repeat cleared. Patient was still having mildly low blood pressures but was clinically looking better and feeling better. She did note some transient blurry vision which she has had prior when she had her brain surgery. Patient had a head CT scan performed and this did not reveal any acute findings. CT scan of the abdomen pelvis was consistent with cystitis. Consultation was made with the [facility] service. Patient was evaluated by Dr. Tawanda Garner in the emergency department and admitted. Triage Nursing notes reviewed and agree them. Vital Signs: reviewed and remarkable for tachycardia, fever, and hypotension Differential diagnosis: Sepsis, UTI, pneumonia, metabolic, electrolyte abnormalities, cardiac sources, intracerebral event, toxicologic, neurologic, as well as other pathologies. Diagnostics interpreted by me: ECG: Twelve-lead ECG reveals sinus tachycardia at 109 bpm. Left ventricular hypertrophy present. Poor R wave progression. Nonspecific ST. No PVCs. Normal axis. Cardiac Monitoring: Cardiac monitoring ordered by me: The patient was placed on continuous cardiac monitoring and observed. It revealed a normal sinus rhythm at 92 beats per minute without ectopy or evidence of dysrhythmia. Imaging studies: CT scans as above. Chest x-ray negative. I refer you to the EMR for further details. HPI: The patient is a 54 year old female who presents to the Emergency Room with complaints of flulike symptoms. This started few days ago and is worsening. The patient also notes the following associated symptoms, fever, vomiting, fatigue, burning with urination. The patient has recently prescribed antibiotics for UTI symptoms for relieving factors. Unfortunately despite the antibiotic use she has had continued symptoms and then the fever started. Current pain is rated as 0/10. History of brain tumor. No headaches or neck pain. Not currently receiving chemotherapy. Pt denies LOC, headache, chills, diaphoresis, visual changes, neck pain, chest pain, breathing difficulties, abdominal pain, back pain, melena, hematochezia, numbness, weakness, lymp hadenopathy, rash, or other complaints. ROS: See above HPI for pertinent positives & negatives. A total of 10 systems reviewed and were otherwise negative. PAST MEDICAL HISTORY:See Below, brain tumor, chronic steroid use, PE, anticoagulated PAST SURGICAL HISTORY:See Below, FAMILY HISTORY:See Below SOCIAL HISTORY:See Below, no alcohol HOME MEDICATIONS:See Below ALLERGIES:See Below VITALS:See Below PHYSICAL EXAMINATION: GENERAL: Awake, alert, mildly ill-appearing, in no distress HENT: Normocephalic, atraumatic. Oropharynx unremarkable. EYES: Normal conjunctiva. Sclera non-icteric. NECK: Inspection normal. Non-tender. Supple. No nuchal rigidity. FROM. No masses. RESPIRATORY: Clear to auscultation. No wheezes. No rales. Normal respiratory effort. CARDIAC: Tachycardic rate. Normal rhythm. No murmurs. No rubs. Extremities warm and well perfused. Pulses equal. No JVD. GI: Soft, non-distended. No tenderness to palpation. No rebound or guarding. No masses. RECTAL: Deferred. MUSCULOSKELETAL: Atraumatic. Chest examination reveals no tenderness. The back is symmetrical on inspection without obvious abnormality. There is no CVA tenderness to palpation. No joint edema. LOWER EXTREMITIES: Calves are equal size bilaterally and non-tender. No edema. No discoloration. NEURO: Normal sensorium. No sensory or motor deficits noted. SKIN: Flushed. Diaphoretic forehead. No rash or jaundice noted. ED COURSE: Critical Care: I have personally spent greater than 40 minutes of critical care time in the direct management of this patient. This includes bedside care, interpretation of diagnostic studies, and testing, discussion with consultants, patient, and other required patient management activities. These minutes are in excess of all separately billable procedures. Toni Mosqueda MD Past Med/Surg History Medical History (Updated 03/09/20 @ 15:17 by Jaja Agrawal PA-C) Acute dyspnea Anxiety Bilateral pulmonary embolism Chest CTA 12/16/19 with a small amount of residual pulmonary embolus within the left-sided pulmonary arteries as above, This has significantly improved as compared to 11/12/2019, There is chronic elevation of the right hemidiaphragm with segmental atelectasis at both lung bases, No airspace consolidation is seen typical for pneumonia and there is no pleural effusion. History of recent hospitalization History of torn meniscus of left knee Hx of [place] thyroiditis Hypothyroidism IgA deficiency follows with PSH (Dr. Acosta) Lichen sclerosus Meningioma s/p subtotal resection 05/2019 and XRT. MRI brain 12/16/19 with Persistent large extra-axial enhancing skull base mass with bilateral cavernous sinus involvement and bilateral internal carotid encasement. The mass remains similar in size measuring approximately 5 x 4.6 x 4.6 cm. The findings are consistent with a meningioma. Postsurgical changes of a prior right temporal craniotomy. Stable dilatation of the right temporal horn and right temporal lobe T2 edema. Stable mass effect on the alejandra, and optic chiasm. There is interval nonspecific foci of punctate enhancement within the alejandra. This finding is of uncertain etiology and significance and could possibly be secondary to vascular enhancement from tumoral compression, or spinal dural invasion. No evidence of acute or subacute infarction MGUS (monoclonal gammopathy of unknown significance) Migraine Osteoarthritis Surgical History (Updated 12/28/19 @ 12:14 by Pilar Iglesias) History of brain surgery transpetrosal craniotomy for subtotal resection 05/2019 History of section X2 History of colonoscopy History of tonsillectomy Hx of abdominal surgery uterine ablation (2008) Nausea and vomiting after administration of anesthetic agent Family History Mother Hypothyroidism Alzheimer disease Father Pre-diabetes Social History Smoking Status: Never smoker Second Hand Exposure: No; Do You Dip or Chew Tobacco: No; Tobacco Cessation Education Requested by Patient: No Hx Alcohol Use: Yes Alcohol type: wine Alcohol Intake Frequency Comment: 2-3 imes per week Hx Substance Use: No Preferred Language: [place] Communication Ability: Effective Hearing Ability: Hard of Hearing Transverse Abdominal Muscle Surgeon Required: No Beliefs That Will Affect Care: None marital status: Current Living Situation: Spouse current occupational status: previously employed current occupation: pediatric physical therapist Other Information That Helps Us Care for You: No Feels Safe at Home: Yes Safety Concerns: Feels Safe At This Time Childhood Exposure to Second-Hand Smoke: Yes caffeine: Yes (occ coffee, ) during the past year weight has: remained stable Dental Care, Regularly: Yes Physical Activity Frequency: 3-4 Times per Week Seatbelt Use: always Sunscreen Use: Yes Assistive Devices: Glasses Allergies Allergies Allergy/AdvReac Type Severity Reaction Status Date / Time oxcarbazepine Allergy Severe Rash Verified 03/09/20 13:29 [From Trileptal] hydrocodone Allergy Unknown vomiting Verified 03/09/20 13:29 gluten AdvReac Unknown GI upset Verified 03/09/20 13:29 corn AdvReac Gastrointestinal Verified 03/09/20 13:29 Upset Home Meds Home Medications Medication Instructions Recorded Confirmed escitalopram oxalate [Lexapro] 10 mg PO QAM 10/30/18 03/09/20 levothyroxine [Synthroid] 125 mcg PO QAM 10/30/18 03/09/20 cholecalciferol (vitamin D3) 125 125 mcg PO WEEKLY tab 07/15/19 03/09/20 mcg (5,000 unit) disintegrating tablet pantoprazole 40 mg tablet,delayed 40 mg PO DAILY 07/15/19 03/09/20 release amlodipine [Norvasc] 5 mg PO DAILY 11/12/19 03/09/20 triamcinolone acetonide 1 applic TOPICAL SPACE 11/12/19 03/09/20 hydrocortisone See Rx Instructions .ROUTE .COMPLEX 12/16/19 03/09/20 lisinopril 5 mg PO DAILY 03/09/20 03/09/20 metoprolol succinate 12.5 mg PO HS 03/09/20 03/09/20 Previous Rx's Medication Instructions Recorded apixaban [Eliquis] 5 mg PO BID #60 tab 11/14/19 Results & Data (ED) Vital Signs Vital Signs - 24 hr 03/09/20 11:22 03/09/20 11:50 03/09/20 12:02 Temperature 39.1 C H Temperature Source Oral Pulse Rate 133 H Pulse Rate from SpO2 Sensor Respiratory Rate 19 Respiratory Effort / Characteristics Non-Labored Spontaneous Respiratory Depth Normal Respiratory Pattern Regular Blood Pressure Blood Pressure Mean Pulse Oximetry 95 94 94 Oxygen Delivery Method Room Air Room Air Room Air Sepsis Recent Fever Within 48 Hours Yes Sepsis New/Unexplained Change in Mental Status No Sepsis Action Taken by Nursing No Action Required 03/09/20 12:17 03/09/20 12:26 03/09/20 12:30 Temperature Temperature Source Pulse Rate 110 H 103 H 101 H Pulse Rate from SpO2 Sensor 104 H 101 H Respiratory Rate 18 21 21 Respiratory Effort / Characteristics Respiratory Depth Respiratory Pattern Blood Pressure 68/44 L 82/48 L Blood Pressure Mean 54 66 Pulse Oximetry 95 93 Oxygen Delivery Method Sepsis Recent Fever Within 48 Hours Sepsis New/Unexplained Change in Mental Status Sepsis Action Taken by Nursing 03/09/20 12:31 03/09/20 12:45 03/09/20 13:00 Temperature Temperature Source Pulse Rate 101 H 94 H 88 Pulse Rate from SpO2 Sensor 102 H 94 H 88 Respiratory Rate 22 17 23 Respiratory Effort / Characteristics Respiratory Depth Respiratory Pattern Blood Pressure 85/54 L Blood Pressure Mean 63 Pulse Oximetry 94 97 100 Oxygen Delivery Method Sepsis Recent Fever Within 48 Hours Sepsis New/Unexplained Change in Mental Status Sepsis Action Taken by Nursing 03/09/20 13:09 03/09/20 13:15 03/09/20 13:30 Temperature Temperature Source Pulse Rate 91 H 91 H 88 Pulse Rate from SpO2 Sensor 92 H 91 H 88 Respiratory Rate 19 20 20 Respiratory Effort / Characteristics Respiratory Depth Respiratory Pattern Blood Pressure 85/54 L 91/56 L 89/58 L Blood Pressure Mean 63 66 66 Pulse Oximetry 99 100 98 Oxygen Delivery Method Sepsis Recent Fever Within 48 Hours Sepsis New/Unexplained Change in Mental Status Sepsis Action Taken by Nursing 03/09/20 13:56 03/09/20 14:01 03/09/20 14:15 Temperature Temperature Source Pulse Rate 87 84 86 Pulse Rate from SpO2 Sensor 86 83 86 Respiratory Rate 19 24 21 Respiratory Effort / Characteristics Respiratory Depth Respiratory Pattern Blood Pressure 74/41 L 87/45 L Blood Pressure Mean 55 54 Pulse Oximetry 97 95 99 Oxygen Delivery Method Sepsis Recent Fever Within 48 Hours Sepsis New/Unexplained Change in Mental Status Sepsis Action Taken by Nursing 03/09/20 14:30 Temperature 36.8 C Temperature Source Oral Pulse Rate 83 Pulse Rate from SpO2 Sensor 83 Respiratory Rate 19 Respiratory Effort / Characteristics Non-Labored Spontaneous Respiratory Depth Respiratory Pattern Blood Pressure 95/43 L Blood Pressure Mean 75 Pulse Oximetry 99 Oxygen Delivery Method Room Air Sepsis Recent Fever Within 48 Hours Sepsis New/Unexplained Change in Mental Status Sepsis Action Taken by Nursing Laboratory Data Result diagrams: 03/09/20 12:09 03/09/20 12:09 Lab Results 03/09/20 03/09/20 03/09/20 Range/Units 12:05 12:05 12:09 WBC 11.30 H (4.8-10.8) K/uL RBC 4.59 (4.2-5.4) M/uL Hgb 13.0 (12.0-16.0) g/dL Hct 40.5 (37-47) % MCV 88.2 (80-100) fL MCH 28.3 (25-34) pg MCHC 32.1 (32-36) g/dL RDW Std Deviation 48.9 H (36.4-46.3) fL RDW Coeff of Ly 15.2 H (11.5-14.5) % Plt Count 322 (130-400) K/uL MPV 10.7 H (7.4-10.4) fL Immature Gran % (Auto) 0.3 % Neut % (Auto) 90.3 % Lymph % (Auto) 4.0 % [place] % (Auto) 4.2 % Eos % (Auto) 1.2 % Baso % (Auto) 0.0 % Neut # (Auto) 10.22 H (1.4-6.5) K/uL Lymph # (Auto) 0.45 L (1.2-3.4) K/uL [place] # (Auto) 0.47 (0.11-0.59) K/uL Eos # (Auto) 0.13 (0-0.5) K/uL Baso # (Auto) 0.00 (0-0.2) K/uL Immature Gran # (Auto) 0.03 H (0.00-0.02) K/uL PT (9.0-12.0) Seconds INR (0.9-1.1) APTT (21.0-31.0) Seconds PTT Ratio Sodium (136-145) mmol/L Potassium (3.5-5.1) mmol/L Chloride (98-107) mmol/L Carbon Dioxide (21-32) mmol/L Anion Gap (3-11) BUN (7-18) mg/dl Creatinine (0.6-1.2) mg/dl Est Cr Clr Drug Dosing Est GFR ( Amer) Est GFR (Non-Af Amer) BUN/Creatinine Ratio (10-20) Glucose (70-99) mg/dl Lactate (0.4-2.0) mmol/L Calcium (8.5-10.1) mg/dl Magnesium (1.8-2.4) mg/dl Total Bilirubin (0.2-1) mg/dl AST (15-37) U/L ALT (12-78) U/L Alkaline Phosphatase (45-117) U/L Troponin I (0-0.045) ng/ml Total Protein (6.4-8.2) gm/dl Albumin (3.4-5.0) gm/dl Globulin (2.5-4.0) gm/dl Albumin/Globulin Ratio (0.9-2) Procalcitonin (0-0.5) ng/ml Urine Color Urine Appearance (Clear) Urine pH (4.5-7.5) Ur Specific La[place] (1.000-1.030) Urine Protein (Negative) Urine Glucose (UA) (Negative) Urine Ketones (Negative) Urine Blood (Negative) Urine Nitrite (Negative) Urine Bilirubin (Negative) Urine Urobilinogen (Negative) Ur Leukocyte Esterase (Negative) Urine WBC (Auto) (0-5) /hpf Urine RBC (Auto) (0-4) /hpf U Hyaline Cast (Auto) (0-5) /lpf U Epithel Cells (Auto) (0-5) /lpf Urine Bacteria (Auto) (Negative) Urine Yeast COVID-19 Eval Order Covid19 IDNow [facility] SARS-CoV-2, RNA, NAAT NEGATIVE (NEGATIVE) 03/09/20 03/09/20 03/09/20 Range/Units 12:09 12:09 12:09 WBC (4.8-10.8) K/uL RBC (4.2-5.4) M/uL Hgb (12.0-16.0) g/dL Hct (37-47) % MCV (80-100) fL MCH (25-34) pg MCHC (32-36) g/dL RDW Std Deviation (36.4-46.3) fL RDW Coeff of Ly (11.5-14.5) % Plt Count (130-400) K/uL MPV (7.4-10.4) fL Immature Gran % (Auto) % Neut % (Auto) % Lymph % (Auto) % [place] % (Auto) % Eos % (Auto) % Baso % (Auto) % Neut # (Auto) (1.4-6.5) K/uL Lymph # (Auto) (1.2-3.4) K/uL [place] # (Auto) (0.11-0.59) K/uL Eos # (Auto) (0-0.5) K/uL Baso # (Auto) (0-0.2) K/uL Immature Gran # (Auto) (0.00-0.02) K/uL PT 12.9 H (9.0-12.0) Seconds INR 1.2 H (0.9-1.1) APTT 26.6 (21.0-31.0) Seconds PTT Ratio 1.0 Sodium 140 (136-145) mmol/L Potassium 3.7 (3.5-5.1) mmol/L Chloride 107 (98-107) mmol/L Carbon Dioxide 20 L (21-32) mmol/L Anion Gap 14.0 H (3-11) BUN 17 (7-18) mg/dl Creatinine 2.19 H (0.6-1.2) mg/dl Est Cr Clr Drug Dosing Not Reportable Est GFR ( Amer) 28.7 Est GFR (Non-Af Amer) 24.7 BUN/Creatinine Ratio 7.8 L (10-20) Glucose 94 (70-99) mg/dl Lactate (0.4-2.0) mmol/L Calcium 8.4 L (8.5-10.1) mg/dl Magnesium 1.7 L (1.8-2.4) mg/dl Total Bilirubin 1.3 H (0.2-1) mg/dl AST 41 H (15-37) U/L ALT 52 (12-78) U/L Alkaline Phosphatase 76 (45-117) U/L Troponin I < 0.015 (0-0.045) ng/ml Total Protein 6.8 (6.4-8.2) gm/dl Albumin 3.4 (3.4-5.0) gm/dl Globulin 3.4 (2.5-4.0) gm/dl Albumin/Globulin Ratio 1.0 (0.9-2) Procalcitonin 19.74 H (0-0.5) ng/ml Urine Color Urine Appearance (Clear) Urine pH (4.5-7.5) Ur Specific Laie (1.000-1.030) Urine Protein (Negative) Urine Glucose (UA) (Negative) Urine Ketones (Negative) Urine Blood (Negative) Urine Nitrite (Negative) Urine Bilirubin (Negative) Urine Urobilinogen (Negative) Ur Leukocyte Esterase (Negative) Urine WBC (Auto) (0-5) /hpf Urine RBC (Auto) (0-4) /hpf U Hyaline Cast (Auto) (0-5) /lpf U Epithel Cells (Auto) (0-5) /lpf Urine Bacteria (Auto) (Negative) Urine Yeast COVID-19 Eval Order SARS-CoV-2, RNA, NAAT (NEGATIVE) 03/09/20 03/09/20 Range/Units 12:16 12:37 WBC (4.8-10.8) K/uL RBC (4.2-5.4) M/uL Hgb (12.0-16.0) g/dL Hct (37-47) % MCV (80-100) fL MCH (25-34) pg MCHC (32-36) g/dL RDW Std Deviation (36.4-46.3) fL RDW Coeff of Ly (11.5-14.5) % Plt Count (130-400) K/uL MPV (7.4-10.4) fL Immature Gran % (Auto) % Neut % (Auto) % Lymph % (Auto) % [place] % (Auto) % Eos % (Auto) % Baso % (Auto) % Neut # (Auto) (1.4-6.5) K/uL Lymph # (Auto) (1.2-3.4) K/uL [place] # (Auto) (0.11-0.59) K/uL Eos # (Auto) (0-0.5) K/uL Baso # (Auto) (0-0.2) K/uL Immature Gran # (Auto) (0.00-0.02) K/uL PT (9.0-12.0) Seconds INR (0.9-1.1) APTT (21.0-31.0) Seconds PTT Ratio Sodium (136-145) mmol/L Potassium (3.5-5.1) mmol/L Chloride (98-107) mmol/L Carbon Dioxide (21-32) mmol/L Anion Gap (3-11) BUN (7-18) mg/dl Creatinine (0.6-1.2) mg/dl Est Cr Clr Drug Dosing Est GFR ( Amer) Est GFR (Non-Af Amer) BUN/Creatinine Ratio (10-20) Glucose (70-99) mg/dl Lactate 2.5 H* (0.4-2.0) mmol/L Calcium (8.5-10.1) mg/dl Magnesium (1.8-2.4) mg/dl Total Bilirubin (0.2-1) mg/dl AST (15-37) U/L ALT (12-78) U/L Alkaline Phosphatase (45-117) U/L Troponin I (0-0.045) ng/ml Total Protein (6.4-8.2) gm/dl Albumin (3.4-5.0) gm/dl Globulin (2.5-4.0) gm/dl Albumin/Globulin Ratio (0.9-2) Procalcitonin (0-0.5) ng/ml Urine Color [place] Urine Appearance Turbid A (Clear) Urine pH 5.0 (4.5-7.5) Ur Specific Laie 1.023 (1.000-1.030) Urine Protein 2+ H (Negative) Urine Glucose (UA) Negative (Negative) Urine Ketones Trace H (Negative) Urine Blood 1+ H (Negative) Urine Nitrite Negative (Negative) Urine Bilirubin 1+ H (Negative) Urine Urobilinogen Negative (Negative) Ur Leukocyte Esterase 2+ H (Negative) Urine WBC (Auto) >30 H (0-5) /hpf Urine RBC (Auto) 0-4 (0-4) /hpf U Hyaline Cast (Auto) >30 H (0-5) /lpf U Epithel Cells (Auto) >30 H (0-5) /lpf Urine Bacteria (Auto) Negative (Negative) Urine Yeast Not Reportable COVID-19 Eval Order SARS-CoV-2, RNA, NAAT (NEGATIVE) Administered Medications Albumin Human (Albumin 25%) 12.5 gm in 50 mls @ 50 mls/hr IV Q1H [facility] Stop: 03/09/20 18:29 Last Admin: 03/09/20 18:11 Dose: 50 mls/hr Documented by: [id number] Infusion: 03/09/20 18:11 Dose: 50 mls/hr Documented by: [id number] Admin: 03/09/20 17:38 Dose: 50 mls/hr Documented by: [id number] Lactated Ringer's (Lr) 1,000 mls @ 150 mls/hr IV .Q6H40M [facility] Stop: 04/08/20 16:29 Last Admin: 03/09/20 17:39 Dose: 150 mls/hr Documented by: [id number] Discontinued Medications Acetaminophen (Acetaminophen 500 Mg Tab) 1,000 mg PO NOW STA Stop: 03/09/20 11:53 Last Admin: 03/09/20 12:28 Dose: 1,000 mg Documented by: [id number] Hydrocortisone Sodium Succinate (Hydrocortisone Sod Succinate 100 Mg/2 Ml Vial) 100 mg IV NOW STA Stop: 03/09/20 11:50 Last Admin: 03/09/20 12:23 Dose: 100 mg Documented by: [id number] Vancomycin HCl 2,500 mg/ (Sodium Chloride) 550 mls @ 200 mls/hr IV NOW ONE Stop: 03/09/20 14:16 Last Infusion: 03/09/20 15:42 Dose: 0 mls/hr Documented by: [id number] Admin: 03/09/20 12:41 Dose: 200 mls/hr Documented by: [id number] Sodium Chloride (Nss 1000ml) 1,000 mls @ 999 mls/hr IV .Q1H1M [facility] Stop: 03/09/20 12:45 Last Infusion: 03/09/20 14:07 Dose: 0 mls/hr Documented by: [id number] Admin: 03/09/20 12:00 Dose: 999 mls/hr Documented by: [id number] Sodium Chloride (Nss 1000ml) 1,000 mls @ 150 mls/hr IV .Q6H40M [facility] Stop: 04/08/20 11:44 Last Admin: 03/09/20 15:39 Dose: Not Given Documented by: [id number] Cefepime HCl (Maxipime) 2,000 mg in 20 mls @ 5 mls/min IV NOW STA; Protocol Stop: 03/09/20 11:35 Last Admin: 03/09/20 12:21 Dose: 5 mls/min Documented by: [id number] Lactated Ringer's (Lr) 1,000 mls @ 999 mls/hr IV .Q1H1M [facility] Stop: 03/09/20 12:51 Last Infusion: 03/09/20 13:39 Dose: 0 mls/hr Documented by: [id number] Admin: 03/09/20 12:38 Dose: 999 mls/hr Documented by: [id number] Lactated Ringer's (Lr) 1,000 mls @ 999 mls/hr IV .Q1H1M [facility] Stop: 03/09/20 13:51 Last Infusion: 03/09/20 15:42 Dose: 0 mls/hr Documented by: [id number] Admin: 03/09/20 14:31 Dose: 999 mls/hr Documented by: [id number] Sodium Chloride (Nss 1000ml) 500 mls @ 999 mls/hr IV .Q31M ONE Stop: 03/09/20 12:20 Last Infusion: 03/09/20 12:58 Dose: 0 mls/hr Documented by: [id number] Admin: 03/09/20 12:27 Dose: 999 mls/hr Documented by: [id number] Sodium Chloride (Nss 1000ml) 500 mls @ 999 mls/hr IV .Q31M ONE Stop: 03/09/20 13:34 Last Admin: 03/09/20 15:39 Dose: Not Given Documented by: [id number] Ondansetron HCl (Ondansetron Inj 2 Mg/Ml 2 Ml Vial) 4 mg IV NOW STA Stop: 03/09/20 11:53 Last Admin: 03/09/20 12:20 Dose: 4 mg Documented by: [id number] Discharge Plan Visit Data Chief Complaint: Flu Like Symptoms Stated Complaint: BRAIN TUMOR HX DEALING WITH, UTI, CHILLS, FEVER,[place] ED Provider: Toni Mosqueda Discharge Problem: Sepsis Patient Disposition: Admitted As Inpatient Discharge Instructions Interventions: ED Discharge Assessment Last Done: 03/09/20 16:05
[2020-03-09 12:31] LABS: Eosinophils # (auto) 0.13 K/uL (0-0.5); Eosinophils % (auto) 1.2 %; Hematocrit (blood only) 40.5 % (37-47); Immature Granulocytes # (auto) 0.03 K/uL (0.00-0.02); Immature Granulocytes % (auto) 0.3 %; Lymphocytes # (auto) 0.45 K/uL (1.2-3.4); Mean Corpuscular Hemoglobin 28.3 pg (25-34); Mean Corpuscular Hgb Conc 32.1 g/dL (32-36); Mean Corpuscular Volume 88.2 fL (80-100); Mean Platelet Volume 10.7 fL (7.4-10.4); Monocytes # (auto) 0.47 K/uL (0.11-0.59); Monocytes % (auto) 4.2 %; Neutrophils # (auto) 10.22 K/uL (1.4-6.5); Neutrophils % (auto) 90.3 %; Platelet Count 322 K/uL (130-400); RDW Coefficient of Variation 15.2 % (11.5-14.5); RDW Standard Deviation 48.9 fL (36.4-46.3); Red Blood Count 4.59 M/uL (4.2-5.4)
[2020-03-09 12:50] LABS: Alanine Aminotransferase 52 U/L (12-78); Albumin Level 3.4 gm/dl (3.4-5.0); Aspartate Aminotransferase 41 U/L (15-37); BUN Creatinine Ratio 7.8 (10-20); Blood Urea Nitrogen 17 mg/dl (7-18); Calcium 8.4 mg/dl (8.5-10.1); Carbon Dioxide 20 mmol/L (21-32); Chloride 107 mmol/L (98-107); Est GFR (African American) 28.7; Est GFR (Non-African American) 24.7; Glucose 94 mg/dl (70-99); Magnesium 1.7 mg/dl (1.8-2.4); Potassium 3.7 mmol/L (3.5-5.1); Sodium 140 mmol/L (136-145)
[2020-03-09 12:54] LABS: Alkaline Phosphatase 76 U/L (45-117); Bilirubin,Total 1.3 mg/dl (0.2-1); Globulin 3.4 gm/dl (2.5-4.0); INR 1.2 (0.9-1.1); Partial Thromboplastin Time 26.6 Seconds (21.0-31.0); Prothrombin Time 12.9 Seconds (9.0-12.0); Total Protein 6.8 gm/dl (6.4-8.2); Troponin I < 0.015 ng/ml (0-0.045)
[2020-03-09 13:01] LABS: Appearance Urine Turbid (Clear); Bacteria Urine Automated Negative (Negative); Blood Urine 1+ (Negative); Color Urine Orange; Epithelial Cell Urine Auto >30 /lpf (0-5); Glucose Urine UA Negative (Negative); Ketones Urine Trace (Negative); Leukocyte Esterase Urine 2+ (Negative); Nitrite Urine Negative (Negative); Protein Urine 2+ (Negative); RBC Urine Automated 0-4 /hpf (0-4); Specific Gravity Urine 1.023 (1.000-1.030); Urobilinogen Urine Negative (Negative); WBC Urine Automated >30 /hpf (0-5)
[2020-03-09 13:06] LABS: Bilirubin Urine 1+ (Negative)
[2020-03-09 13:16] LABS: Cast Urine Automated >30 /lpf (0-5)
--- NOTE | 2020-03-09 13:57 | History & Physical Report ---
Date of Service March 09, 2020 Assessment & Plan (1) Septic shock: - Admit to PCU - Source appears to be urinary with grossly infected appearing UA, turbid with 2+ protein, 1+blood 2+ esterase and WBC >30. Follow UCx and BCx x 2. - Was treated for UTI recently - had Bactrim BID rx on 01/26 for a course, then again on 02/12 keflex 500 mg BID x 5 days, and then Bactrim DS BID x 7 days on 03/08 (only took 2 doses, vomitted shortly after taking today's AM dose) - Initially hypotensive, elevated lactate of 2.5, repeat pending, WBC 11.3, elevated Cr. on admission at 2.19 up from baseline of 0.6-0.9 - Continue IV vanc and cefepime - Volume resuscitated initiated in the ER with NSS 1.5 L and LR 2 L. - albumin 25 mg IV x 1 - Continue LR at 150 mL/h - Monitor for acute needs for vasopressors, BP 95/43 on recheck, maintain MAP > 65 - Initiated stress dose steroids with hydrocortisone 100 mg in the ER, continue 100 mg q8H jacky-- at baseline uses 15 mg QAM and 5 mg QPM for hx of meningioma - Hold home antihypertensives (2) CALVIN (acute kidney injury): - Cr. elevated at 2.19, up from 0.6-0.9 - Fluid resuscitation, avoid nephrotoxins, renally reduce medications - Follow BMP with am labs (3) Meningioma: - Follows with neurology at [facility] - Meningioma was resected 30 to 40% in May 2019 in [facility], by Dr. Figueroa, neurosurgery, follows now with oncology with [place] - Continue hydrocortisone as above, titrate to typical outpatient dosing as above once out of septic shock. - No longer taking antiepileptics - Holding home antihypertensives (4) Bilateral pulmonary embolism: - Continue Eliquis 5 mg BID - Holding antihypertensives - Attempting to obtain records from Dr. Guerin office, pt recently had echocardiogram done there. No need to repeat this if can get records. - Adjusted lisinopril down to 5 mg per med rec with , metoprolol succ 12.5 mg BID. (5) Pituitary insufficiency: - Hydrocortisone as above, secondary to meningioma (6) Hypothyroidism: - Continue levothyroxine 125 mcg daily (7) Morbid obesity: - BMI of 36.6, diet and exercise DVT ppx: - teds, Eliquis 5 mg twice daily CODE: Full code Dispo: From home, likely to remain in the hospital x 2 days History of Present Illness Primary Care Provider: Alicia Acosta DO This is a 54 yo F with significant PMHx of large right sphenoid wing meningioma diagnosed April 2019, underwent resection on 05/27/2019 in [place], [place] by Dr. Maurice, meningioma with extension into the cavernous sinus in April 2019 causing mass-effect on brainstem and cavernous ICA with surprisingly mild symptoms of gait instability, diplopia, dizziness and pulsatile tinnitus in the right ear. She underwent partial resection in [place] by Dr. Hidalgo in May. She started external beam radiation therapy in [place] completing 18 of 30 scheduled rounds. However she developed increased lethargy, fever, fullness in the right ear, headaches, metallic taste in the back of her throat and subsequent imaging was concerning for meningitis versus cerebritis. There was also some concern that her symptoms started around the same time her dexamethasone was switched to hydrocortisone, currently taking 15 mg QAM and 5 mg QPM. She was started on empiric antibiotics and transferred to [place] on September 02. Lumbar puncture was not performed for 5 days but ultimately did not grow any bacteria, however the opening pressure was elevated at 41. She developed expressive aphasia and worsening CALVIN (?vancomycin ?Contrast-induced). She became acutely unresponsive on September 11 and was transferred to the ICU. Started on high-dose dexamethasone due to increased edema, CT showed increased ventricle size. Repeat LP with opening pressure 46 (although patient agitated and restless), 30 cc drained. Trileptal added for possible seizures. She was ultimately discharged on September 19, 2019. Of note she did have an acute occlusive superficial venous thrombosis in the right cephalic vein and left basilic vein on September 13 upper extremity venous duplex (although suspect this was from peripheral IV lines). She was admitted in Nov 2019 where she was found to have bilateral PEs, placed on anticoagulation with Eliquis 5 mg BID for 6 months due to her history of meningioma. She had presented due to a rash which was determined to be due to Trileptal, which was then stopped, and rash improved. Other past medical history includes pituitary insufficiency, plantar fasciitis, posterior tibial tendinitis, and hypothyroidism. Today the pt presents to the ER with fever, chills, urinary complaints. She is found to be in septic shock- hypotensive with elevated lactate, and grossly infected urine. Pt has been on 3 round of antibiotics for suspected UTI. Most recently started Bactrim on 03/08, and took 1 dose and then again this morning. But was nauseous today and ended up vomiting shortly after taking all her morning medications. She reports having a fever last evening of 99.0, took Tylenol and went to bed. She then awoke with a fever of 103 today as well as having rigors/chills overnight. She reports that in the last 3 weeks she has been on several rounds of different antibiotics. Patient cannot recall having a UA or urine culture obtained at the beginning of her symptoms. Main complaint is increased frequency with needing to wake up 10-12 times per night and voiding 1 tablespoon urine at a time. Denies hematuria, pyuria, admits to recent darkened urine. She has vomited several times in the last 2 days and feels extremely dry. Patient was able to keep 1 cup of water down since being here in the ER. She is also received a total of 1.5L NSS and 1 L LR in the ER. Pressures have slowly improved to improved from 74/41 to 95/43. She states that she feels slightly better at this point time. Her is out in the parking lot and all his questions and concerns were answered. Reports pt recently was treated for UTI - had Bactrim DS BID rx on 01/26 for a course, then again on 02/12 keflex 500 mg BID x 5 days, and then Bactrim DS BID x 7 days on 03/08 (only took 2 doses, vomited shortly after taking today's AM dose). Allergies Allergy/AdvReac Type Severity Reaction Status Date / Time oxcarbazepine Allergy Severe Rash Verified 03/09/20 13:29 [From Trileptal] hydrocodone Allergy Unknown vomiting Verified 03/09/20 13:29 gluten AdvReac Unknown GI upset Verified 03/09/20 13:29 corn AdvReac Gastrointestinal Verified 03/09/20 13:29 Upset Home Medications Medication Instructions Recorded Confirmed Type escitalopram oxalate [Lexapro] 10 mg PO QAM 10/30/18 03/09/20 History levothyroxine [Synthroid] 125 mcg PO QAM 10/30/18 03/09/20 History cholecalciferol (vitamin D3) 125 125 mcg PO WEEKLY tab 07/15/19 03/09/20 History mcg (5,000 unit) disintegrating tablet pantoprazole 40 mg tablet,delayed 40 mg PO DAILY 07/15/19 03/09/20 History release amlodipine [Norvasc] 5 mg PO DAILY 11/12/19 03/09/20 History triamcinolone acetonide 1 applic TOPICAL SPACE 11/12/19 03/09/20 History apixaban [Eliquis] 5 mg PO BID #60 tab 11/14/19 03/09/20 Rx hydrocortisone See Rx Instructions .ROUTE .COMPLEX 12/16/19 03/09/20 History lisinopril 5 mg PO DAILY 03/09/20 03/09/20 History metoprolol succinate 12.5 mg PO HS 03/09/20 03/09/20 History Past Med/Surg History Medical History (Updated 03/09/20 @ 15:17 by Jaja Agrawal PA-C) Acute dyspnea Anxiety Bilateral pulmonary embolism Chest CTA 12/16/19 with a small amount of residual pulmonary embolus within the left-sided pulmonary arteries as above, This has significantly improved as compared to 11/12/2019, There is chronic elevation of the right hemidiaphragm with segmental atelectasis at both lung bases, No airspace consolidation is seen typical for pneumonia and there is no pleural effusion. History of recent hospitalization History of torn meniscus of left knee Hx of [place] thyroiditis Hypothyroidism IgA deficiency follows with PSH (Dr. Acosta) Lichen sclerosus Meningioma s/p subtotal resection 05/2019 and XRT. MRI brain 12/16/19 with Persistent large extra-axial enhancing skull base mass with bilateral cavernous sinus involvement and bilateral internal carotid encasement. The mass remains similar in size measuring approximately 5 x 4.6 x 4.6 cm. The findings are consistent with a meningioma. Postsurgical changes of a prior right temporal craniotomy. Stable dilatation of the right temporal horn and right temporal lobe T2 edema. Stable mass effect on the alejandra, and optic chiasm. There is interval nonspecific foci of punctate enhancement within the alejandra. This finding is of uncertain etiology and significance and could possibly be secondary to vascular enhancement from tumoral compression, or spinal dural i nvasion. No evidence of acute or subacute infarction MGUS (monoclonal gammopathy of unknown significance) Migraine Osteoarthritis Surgical History (Updated 12/28/19 @ 12:14 by Pilar Iglesias) History of brain surgery transpetrosal craniotomy for subtotal resection 05/2019 History of section X2 History of colonoscopy History of tonsillectomy Hx of abdominal surgery uterine ablation (2008) Nausea and vomiting after administration of anesthetic agent Family History Mother Hypothyroidism Alzheimer disease Father Pre-diabetes Social History Smoking Status: Never smoker Second Hand Exposure: No; Do You Dip or Chew Tobacco: No; Tobacco Cessation Education Requested by Patient: No Hx Alcohol Use: Yes Alcohol type: wine Alcohol Intake Frequency Comment: 2-3 imes per week Hx Substance Use: No Preferred Language: South Korean Communication Ability: Effective Hearing Ability: Hard of Hearing Superintendent Horticulture Required: No Beliefs That Will Affect Care: None marital status: Current Living Situation: Spouse current occupational status: previously employed current occupation: pediatric physical therapist Other Information That Helps Us Care for You: No Feels Safe at Home: Yes Safety Concerns: Feels Safe At This Time Childhood Exposure to Second-Hand Smoke: Yes caffeine: Yes (occ coffee, ) during the past year weight has: remained stable Dental Care, Regularly: Yes Physical Activity Frequency: 3-4 Times per Week Seatbelt Use: always Sunscreen Use: Yes Assistive Devices: Glasses Review of Systems Review of Systems: Constitutional: + fever, sweats or chills, no lightheadedness or dizziness Eyes: No diplopia, no worsening or blurred vision ENT: normal hearing, no trouble swallowing Respiratory: No cough, sputum, dyspnea at rest or on exertion Cardiovascular: No chest pain, tightness or palpitations Abdomen: No pain, nausea, vomiting, diarrhea or constipation : See HPI, + increased frequency, denies hematuria/pyuria Musculoskeletal: No joint pain, calf pain, swelling Neurologic: + generalized weakness. No numbness/tingling, or balance problems Psychiatric: +anxiety or depression on SSRI. Skin: No rash or itch Physical Exam Physical Exam: General: awake, alert, no apparent distress, + lying flat, + obese with BMI of 36 Head: Normocephalic, atraumatic, + flushed appearance ENT: PERRL, EOMI, no pharyngeal exudate, mucous membranes slightly dry Chest: Clear to auscultation, on room air, O2 sats 99%, no adventitious breath sounds Cardiac: Sinus tachycardia, no murmur, no JVD, normal peripheral pulses, good capillary refill Abdominal: NABS x 4 quadrants, soft, nondistended, nontender to palpation, no rebound or guarding Extremities: Normal inspection, no peripheral edema or erythema, calfs nontender to palpation Psych: Normal mood and affect Neuro: AAO x 3, strength intact bilaterally and rated 5/5, no motor deficits, speech is clear, no peripheral sensory deficits Results & Data Results & Data ([facility]) Vital Signs (Past 12 Hours) Vital Signs Temp Pulse Resp BP Pulse Ox 03/09/20 13:00 88 23 85/54 L 100 03/09/20 12:45 94 H 17 97 03/09/20 12:31 101 H 22 94 03/09/20 12:30 101 H 21 82/48 L 93 03/09/20 12:26 103 H 21 68/44 L 95 03/09/20 12:17 110 H 18 03/09/20 12:02 94 03/09/20 11:50 94 03/09/20 11:22 39.1 C H 133 H 19 95 Diagnostic Findings SINGLE VIEW CHEST CLINICAL HISTORY: Sepsis. FINDINGS: An AP, portable, upright chest radiograph is compared to study dated 11/12/2019 and correlated with chest CT dated 12/16/2019. The cardiomediastinal silhouette is unremarkable. There is chronic elevation of the right hemidiaphragm. Bibasilar scarring/atelectasis is similar to previous. There is no evidence of superimposed airspace consolidation or large pleural effusion. No pneumothorax is seen. The bony thorax is grossly intact. IMPRESSION: No active disease in the chest. ECG Indication: tachycardia Rhythm: normal sinus Additional Comments: 09-MAR-2020 12:17:32 [facility]-EDSTAT ROUTINE RETRIEVAL Poor data quality, interpretation may be adversely affected Sinus tachycardia Minimal voltage criteria for LVH, may be normal variant Cannot rule out Anterior infarct , age undetermined Abnormal ECG When compared with ECG of 16-DEC-2019 12:47, T wave inversion less evident in Lateral leads 25mm/s 10mm/mV 150Hz 9.0.9 12SL 241 SCOTTIE: 15 Referred by: ED Unconfirmed Vent. rate 109 BPM MN interval 130 ms QRS duration 80 ms QT/QTc 372/500 ms Code Status & VTE Plan Code Status Code-discussed with the patient at bedside Supervising Physician Co-Signing Physician Notes Attending addendum: I have physically seen this patient, have supervised the JEREMIAH's activities, and agree with the H&P unless as otherwise noted. Assessment and Plan: Septic shock/sepsis due to UTI- Admit to monitored bed Blood pressure somewhat improved with total 3.5 L IV fluid rehydration. Continue LR 150 mils per hour Albumin 25 g IV x1 Empiric vancomycin IV and cefepime IV per pharmacokinetic monitoring Hold all antihypertensives Creatinine 2.19 upon admission, with range 0.69-0.92 Follow serial CBC with differential, chemistry profile and magnesium levels Bilateral PE history- Continue Eliquis 5 mg twice daily Remaining orders and notations as noted PG Care Time/CCT Total # of Minutes Spent Total Time Spent with Patient: Total time spent is greater than 50% in coordination of care (as documented) at patient's floor/unit and/or counseling patient: Coding Level of Care Code 26707 Initial Inpt Care Lvl 3 Diagnoses Septic shock A41.9; R65.21 CALVIN (acute kidney injury) N17.9 Meningioma D32.9 Bilateral pulmonary embolism I26.99 Pituitary insufficiency E23.0 Hypothyroidism E03.9 Morbid obesity E66.01
--- NOTE | 2020-03-09 13:58 | CT Scan Report ---
CT SCAN OF THE BRAIN WITHOUT IV CONTRAST CLINICAL HISTORY: Sepsis. History of brain tumor resection. COMPARISON STUDY: CT of the brain dated 09/03/2019. MRI of the brain dated 12/16/2019. TECHNIQUE: Unenhanced axial CT scan of the brain is performed from the vertex to the skull base. A d ose lowering technique was utilized adhering to the principles of ALARA. FINDINGS: Brain parenchyma: There is right temporal encephalomalacia are consistent with previous mass resectio n. There is associated ex vacuo dilatation of the right lateral ventricle. Residual mass lesion in th e sellar/suprasellar region measures 3.5 x 2.5 cm as seen on image #10. This extends inferiorly into the posterior fossa and causes mild mass effect on the alejandra. The brain parenchyma is otherwise normal in appearance. There is no hemorrhage, midline shift, or evidence of acute territorial ischemia by C T criteria. Scott-white matter differentiation is preserved. No extra-axial fluid collection is seen. Ventricles, sulci, cisterns: Normal in configuration. See above. Intracranial vasculature: The visualized intracranial vasculature at the skull base is normal in appe arance. Calvarium: There is postoperative change from right temporal craniotomy/craniectomy. Sinuses and mastoids: Mild mucosal thickening is noted in the right maxillary antrum. Fluid is seen w ithin the sphenoid sinuses. There is a right mastoid effusion with evidence of right mastoid resectio n. The left mastoid air cells are well pneumatized. Orbits: The bony orbits are grossly intact. IMPRESSION: 1. There is no hemorrhage, midline shift, or evidence of acute territorial ischemia by CT criteria. 2. Postoperative change as above with residual mass lesion at the skull base. This was better assesse d on the 12/16/2019 MRI. ACT 112: Negative or not required by law. Electronically signed by: Yeyo Arriola M.D. 03/09/2020 1:57 PM
--- NOTE | 2020-03-09 14:07 | CT Scan Report ---
CT SCAN OF THE ABDOMEN AND PELVIS WITHOUT CONTRAST CLINICAL HISTORY: Sepsis. Urinary tract infection COMPARISON STUDY: 12/12/2016 TECHNIQUE: CT scan of the abdomen and pelvis was performed from the lung bases to the proximal femurs . Images are reviewed in the axial, sagittal, and coronal planes. IV contrast was not administered fo r this examination. A dose lowering technique was utilized adhering to the principles of ALARA. CT DOSE: 2086.72 mGy.cm FINDINGS: Lower chest: There are linear interstitial type opacities at both lung bases, statistically atelectat ic. Liver: There is hepatic steatosis. There is more prominent fatty change adjacent to the falciform lig ament. There is no ductal dilatation. Gallbladder: Unremarkable. Spleen: Normal in size and attenuation. Pancreas: Unremarkable. Adrenal glands: Unremarkable. Kidneys: There is a 1 cm upper pole left renal hypodensity likely representing a cyst. No renal, uret eral, or bladder calculi are visualized. There is no hydronephrosis Bowel: There are no transition zones indicate bowel obstruction. There is no evidence of acute divert iculitis. The appendix is not visualized with certainty. There are no findings to indicate acute appe ndicitis. Peritoneum: There is no intraperitoneal free air or abdominal ascites. Vasculature: The abdominal aorta is normal in course and caliber. Adenopathy: None. Pelvic viscera: There is very subtle perivesical stranding. Clinical correlation in regards to a cyst itis is recommended. Skeletal structures: No destructive osseous lesions are seen. IMPRESSION: 1. No evidence of bowel obstruction. No evidence of free air 2. No renal, ureteral, or bladder calculi identified. No evidence of hydronephrosis 3. Very subtle perivascular stranding. Correlation with urinalysis is recommended to exclude cystitis 4. Hepatic steatosis 5. Bibasilar pulmonary opacities statistically atelectatic ACT 112: Negative or not required by law. Electronically signed by: Louis Jesus M.D. 03/09/2020 2:06 PM
--- NOTE | 2020-03-09 14:58 | Electrocardiogram Report ---
Test Reason : Blood Pressure : / mmHG Vent. Rate : 109 BPM Atrial Rate : 109 BPM P-R Int : 130 ms QRS Dur : 080 ms QT Int : 372 ms P-R-T Axes : 055 -08 029 degrees QTc Int : 500 ms Poor data quality, interpretation may be adversely affected Sinus tachycardia Minimal voltage criteria for LVH, may be normal variant Nonspecific ST abnormality Abnormal ECG When compared with ECG of 16-DEC-2019 12:47, T wave inversion less evident in Lateral leads Confirmed by Tolu Guo ([id number]) on 03/09/2020 2:58:35 PM Referred By: ED Confirmed By:Surya Guo
[2020-03-09] MEDS ORDERED: VANCOMYCIN HCL 1,000 MG in SODIUM CHLORIDE 0.9% 250 ML IV SCH (16:30)
[2020-03-09] MEDS ORDERED: CEFEPIME 1,000 MG in SYRINGE 0 ML IV SCH (16:30)
[2020-03-09] MEDS ORDERED: ONDANSETRON INJ 2 MG/ML 2 ML VIAL IV PRN (16:30)
[2020-03-09] MEDS ORDERED: ACETAMINOPHEN 325 MG TAB PO PRN (16:30)
[2020-03-09] MEDS ORDERED: HYDROCORTISONE SOD SUCCINATE 100 MG/2 ML VIAL IV SCH (16:30)
[2020-03-09] MEDS: ALBUMIN 25% 12.5 GM/50 ML VIAL IV SCH ×2 (17:38→18:11)
[2020-03-09] MEDS: LACTATED RINGER'S 1,000 ML IV SCH ×2 (17:39→23:30)
[2020-03-09] MEDS: HYDROCORTISONE SOD 100 MG in SYRINGE 0 ML IV SCH (20:02)
[2020-03-09] MEDS: APIXABAN 5 MG TABLET PO SCH (20:03)
--- NOTE | 2020-03-09 20:22 | Pharmacy Report ---
Pharmacy Abx Dose Short Note - Date of Service March 09, 2020 - Assessment & Plan Assessment 54 year old with suspected UTI. Presenting to ED with fever, chills, urinary complaints, and also found to be hypotensive. Started on vancomycin/cefepime. Recently on 3 rounds of antibiotics for UTI. (including bactrim/keflex). PMhx significant for meningioma s/p resection. Blood and urine cultures pending. Plan Vancomycin * Received loading dose of vancomycin 2500 mg x 1 in ED (~25 mg/kg) * Scr on admission elevated from baseline Scr. 2.19 mg/dL on admission, whereas baseline closer to 0.9 mg/dL * Plan to hold further doses of vancomycin for now and order a random level in the AM to assist with further dosing. Estimated level still >15 mcg/ml * Estimated kinetics: t1/2~21 hr, ke~0.03 hr-1, CrCl 35 ml/min Pharmacy will continue to follow and will adjust dose/frequency as necessary. Thank you.
[2020-03-09] MEDS ORDERED: LACTATED RINGER'S 1,000 ML IV ONE (23:34)
[2020-03-10] MEDS: MAGNESIUM SULFATE / D5W 1 GM/100 ML BAG IV SCH ×2 (00:40→03:23)
[2020-03-10] MEDS: HYDROCORTISONE SOD 100 MG in SYRINGE 0 ML IV SCH (04:05)
[2020-03-10] MEDS: LEVOTHYROXINE SODIUM 125 MCG TABLET PO SCH (05:29)
[2020-03-10 06:20] LABS: Hematocrit (blood only) 31.5 % (37-47); Hemoglobin 10.2 g/dL (12.0-16.0); Mean Corpuscular Hemoglobin 28.7 pg (25-34); Mean Corpuscular Hgb Conc 32.4 g/dL (32-36); Mean Corpuscular Volume 88.5 fL (80-100); Mean Platelet Volume 10.2 fL (7.4-10.4); Platelet Count 194 K/uL (130-400); RDW Coefficient of Variation 14.8 % (11.5-14.5); Red Blood Count 3.56 M/uL (4.2-5.4); White Blood Count 9.62 K/uL (4.8-10.8)
[2020-03-10 07:13] LABS: Albumin Globulin Ratio 1.1 (0.9-2); Albumin Level 2.7 gm/dl (3.4-5.0); BUN Creatinine Ratio 12.6 (10-20); Bilirubin,Total 0.7 mg/dl (0.2-1); Calcium 8.1 mg/dl (8.5-10.1); Est GFR (African American) 52.9; Est GFR (Non-African American) 45.6; Globulin 2.5 gm/dl (2.5-4.0); Magnesium 2.4 mg/dl (1.8-2.4); Phosphorus 2.5 mg/dl (2.5-4.9); Potassium 3.6 mmol/L (3.5-5.1); Total Protein 5.2 gm/dl (6.4-8.2)
[2020-03-10] MEDS: LACTATED RINGER'S 1,000 ML IV SCH (07:53)
--- NOTE | 2020-03-10 08:10 | Hospitalist Progress Note ---
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 Patient's clinical picture dramatically improved with IV antibiotics, stress dose steroids, and IVF, and is doing very well. Septic shock, UTI -UTI is likely source despite urine culture with no growth (unsure if obtained prior to IV antibiotic administration) as UA was turbid with 2+ protein, 1+ blood, 2+ leuk esterase, and WBC>30 -blood cultures pending -in the setting of recent antibiotic treatment for UTI over the past 5-6 weeks (course of bactrim starting 01/26, then keflex 500mg bid for five days starting 02/12, then bactrim DS bid for seven days starting 03/08 although only took two doses of this; vomited after AM dose today) -hypotensive on arrival with a low of 60/30, lactate elevated to 2.5, WBC 11.3, Cr elevated to 2.19 on admission (baseline 0.6-0.9) -holding home antihypertensives -holding LR as patient is tolerating PO and maintaining adequate blood pressure -continue cefepime IV -vancomycin IV discontinued after the development of flushed face, torso, and arms -stress dose hydrocortisone 100mg q8h reduced to 60mg q12h -plans to reduce this further tomorrow to her home dose hydrocortisone (15mg qAM and 5mg qpm) -CBC qAM -BMP qAM CALVIN: improving -Cr elevated on admission to 2.19 (up from 0.6-0.9), improved this morning to 1.32 -holding home lisinopril -IVF not currently running as patient is tolerating PO very well -BMP qAM Meningioma -multiple providers involved but primarily managed by MD Zendejas -diagnosed in 04/2019, resected (30-40% in 05/[address] [place] [address] Figueroa -underwent beam therapy treatments at [facility] but not finishing the rest after poorly tolerating treatment -c/w hydrocortisone as noted above -next MD Zendejas follow-up is in 06/2020 -patient reports prognosis remains very good History of bilateral PE (11/2019) -continue eliquis 5mg bid -OOB -obtaining recent echo results from Dr. Guerin office Adrenal insufficiency, pituitary insufficiency -secondary to chronic steroid treatment (originally dexamethasone but this was poorly tolerated by patient; switched by MD Zendejas to hydrocortisone which is very well-tolerated by patient) -c/w hydrocortisone as above Hypothyroidism -c/w levothyroxine 125mcg PO [id number] Anxiety -continue escitalopram FENGI: regular diet DVT ppx: eliquis 5mg bid Code status: full code Dispo: PCU (2) CALVIN (acute kidney injury): (3) Bilateral pulmonary embolism: (4) Meningioma: (5) Pituitary insufficiency: (6) Hypothyroidism: (7) Meningioma: Admission and Anticipated Discharge Date Admission Date: March 09, 2020 Supervising Physician Co-Signing Physician Notes I also saw the patient and confirmed soliz portions of the history and physical examination. I agree with the resident documentation and as summarized below. 54-year-old female with recent diagnosis of a large right sphenoid wing meningioma (April 2019) status post resection in [facility] in May,. Subsequent diagnosis of meningitis versus cerebritis which halted her post operative radiation, and bilateral pulmonary embolism diagnosed in November 2019 -ultimately admitted last evening with what appeared to be urosepsis. The patient had tried several outpatient antibiotics but had some difficulty with tolerating (nausea and vomiting), and then awoke on the day of discharge with a temperature of 103 F along with rigors and chills. Upon initial presentation to the emergency department she was found to be quite hypertensive with systolic blood pressures in the 70s; she did respond to 2.5 L of fluid in the emergency department, and subsequently was admitted to the PCU. She also is on chronic steroids due to presumed adrenal insufficiency (this is currently being worked up) and was appropriate given stress dose steroids upon admission. She looks quite well this morning. She is afebrile and hemodynamically stable. All of her urinary symptoms which she had the past several days have resolved. She actually feels somewhat swollen (edema the lower extremities, and fingers are swollen that her rings are tight); she is urinating regularly without dysuria or hesitancy. Exam 114/76, 72, 20, 36.9, 99% on room air Nontoxic. Hemodynamically stable. Lungs clear, heart regular Abdomen soft and nontender Slight edema mid tib-fib and distally, bilateral; her rings are tight fitting and fingers slightly edematous Data Hemoglobin 10.2, white blood cell count 9.62. Sodium 142, Potassium 3.6, BUN 17, Cr 1.32. Assessment and Plan Septic shock/sepsis Looks much improved in a short period of time, suspect urinary source. She did develop facial flushing and erythema of the chest and upper arms, question of this is related to the vancomycin; will hold the vancomycin and continue cefepime Decrease hydrocortisone slightly; if she looks good tomorrow, will quickly taper her to her home dose Urine and blood cultures are pending History of pulmonary embolism Continue Eliquis Additional diagnoses as in resident note Subjective Patient was seen at bedside this morning. She feels dramatically better than she did on admission and no longer complains of nausea, vomiting, weakness, jaleel bility to tolerate PO. She complains of LE edema as well as edema and "tightness" in her hands, and requests that IVF be discontinued especially since she is tolerating PO. Review of Systems Constitutional: no fever, no chills and no fatigue Respiratory: no cough and no dyspnea Cardiovascular: + edema; no chest pain, no palpitations, no lightheadedness and no syncope Gastrointestinal: no abdominal pain, no nausea, no vomiting, no constipation and no diarrhea/loose stools Genitourinary: no dysuria, no difficulty urinating, no urinary frequency, no urinary hesitancy and no urinary urgency Neurologic: no tingling, no numbness and no dizziness Physical Exam Constitutional: healthy appearing; no acute distress, not ill appearing and no altered mental status Respiratory: normal respiratory effort, lungs clear to auscultation Cardiovascular: RRR, no murmur, no edema Gastrointestinal (Abdomen): normal bowel sounds, soft, nontender, no hepatosplenomegaly Neurologic: awake; no focal motor deficits and not confused Cranial Nerves: PERRL, normal accommodation and no nystagmus Psychiatric: A+Ox3, euthymic affect Results & Data Results & Data ([facility]) Vital Signs (Past 12 Hours) Vital Signs Temp Pulse Resp BP BP Pulse Ox 03/10/20 03:34 36.6 C 86 18 99/64 L 95 03/10/20 00:32 97/63 L 85/52 L 03/09/20 23:40 91/57 L 03/09/20 23:20 36.7 C 68 20 94 03/09/20 23:15 80 75/46 L Resident Activity Tracking Resident Involvement: Resident Care Provided Care Provided: Adult Hospital Medicine
[2020-03-10] MEDS ORDERED: VANCOMYCIN HCL 1,000 MG in SODIUM CHLORIDE 0.9% 250 ML IV SCH (10:00)
--- NOTE | 2020-03-10 10:10 | Pharmacy Report ---
Pharmacy Abx Dose Short Note - Date of Service March 10, 2020 - Assessment & Plan Assessment 54 year old F ordered empiric vancomycin and cefepime for septic shock, presumed urinary source * presented with hypotension requiring fluid resuscitation, elevated lactate, procalcitonin 19.74, and CALVIN * recently treated for UTI: Bactrim BID rx on 01/26, keflex 500 mg BID x 5 days on 02/12, and then Bactrim DS BID x 7 days on 03/08 (only took 2 doses, vomited shortly after taking today's AM dose) * will trend procalcitonin - of note, may be partially falsely elevated in the setting of CALVIN. Scr is trending downward today. * although MRSA is an atypical organism for UTI it seems reasonable to continue at least until preliminary blood cultures result given patient presentation and recent antibiotic use Plan Vancomycin * Patient received a single dose of 2500 mg IV on 03/09 @ 1241 in the ED * Random level drawn this AM resulted at 18 mcg/mL * Will start vancomycin 1000 mg (10 mg/kg) IV q12h * a less than traditional dose was used d/t risk of accumulation based on pt BMI * more aggressive dosing frequency selected based on improving renal function -> may need to decrease frequency on 03/11 if renal function does not continue to trend towards baseline * Goal trough level for UTI: 10-15 mcg/mL * Further levels will be ordered pending continuation of therapy (ordered as empiric with 48 hour stop) Pharmacy will continue to follow and will adjust dose/frequency as necessary. Thank you.
[2020-03-10] MEDS: PANTOprazole 40 MG TAB PO SCH (11:18)
[2020-03-10] MEDS: ESCITALOPRAM OXALATE 10 MG TAB PO SCH (11:18)
[2020-03-10] MEDS: APIXABAN 5 MG TABLET PO SCH ×2 (11:18→20:26)
[2020-03-10] MEDS: CEFEPIME 2,000 MG in SYRINGE 0 ML IV SCH (11:27)
[2020-03-10] MEDS: HYDROCORTISONE SOD IV SCH (17:05)
[2020-03-11] MEDS ORDERED: cefUROXime axetil 250 MG TABLET PO SCH
[2020-03-11] MEDS: HYDROCORTISONE SOD IV SCH (04:05)
[2020-03-11 05:57] LABS: Eosinophils # (auto) 0.18 K/uL (0-0.5); Eosinophils % (auto) 3.1 %; Hematocrit (blood only) 29.9 % (37-47); Hemoglobin 9.7 g/dL (12.0-16.0); Immature Granulocytes # (auto) 0.01 K/uL (0.00-0.02); Immature Granulocytes % (auto) 0.2 %; Lymphocytes # (auto) 0.79 K/uL (1.2-3.4); Lymphocytes % (auto) 13.8 %; Mean Corpuscular Hemoglobin 28.4 pg (25-34); Mean Corpuscular Hgb Conc 32.4 g/dL (32-36); Mean Corpuscular Volume 87.7 fL (80-100); Mean Platelet Volume 10.4 fL (7.4-10.4); Monocytes # (auto) 0.28 K/uL (0.11-0.59); Monocytes % (auto) 4.9 %; Neutrophils # (auto) 4.46 K/uL (1.4-6.5); Platelet Count 216 K/uL (130-400); RDW Standard Deviation 48.4 fL (36.4-46.3); Red Blood Count 3.41 M/uL (4.2-5.4); White Blood Count 5.72 K/uL (4.8-10.8)
[2020-03-11] MEDS: LEVOTHYROXINE SODIUM 125 MCG TABLET PO SCH (06:10)
[2020-03-11 06:28] LABS: Albumin Level 2.9 gm/dl (3.4-5.0); BUN Creatinine Ratio 14.2 (10-20); Bilirubin,Total 0.4 mg/dl (0.2-1); Calcium 8.4 mg/dl (8.5-10.1); Creatinine Clr Calc Pharmacy 80.9 ml/min; Est GFR (African American) 78.7; Est GFR (Non-African American) 67.9; Globulin 2.8 gm/dl (2.5-4.0); Potassium 3.5 mmol/L (3.5-5.1); Total Protein 5.7 gm/dl (6.4-8.2)
[2020-03-11] MEDS: PANTOprazole 40 MG TAB PO SCH (07:19)
[2020-03-11] MEDS: APIXABAN 5 MG TABLET PO SCH (07:19)
[2020-03-11] MEDS: ESCITALOPRAM OXALATE 10 MG TAB PO SCH (07:20)
--- NOTE | 2020-03-11 11:01 | Hospitalist Progress Note ---
Date of Service March 11, 2020 Assessment & Plan Admission and Anticipated Discharge Date Admission Date: March 09, 2020 Results & Data Results & Data ([facility]) Vital Signs (Past 12 Hours) Vital Signs Temp Pulse Pulse Resp BP BP Pulse Ox 03/11/20 08:00 61 03/11/20 07:06 36.9 C 63 18 132/86 98 03/11/20 03:54 36.8 C 75 20 122/77 97 03/10/20 23:43 37.2 C 74 19 127/85 96
[2020-03-11] MEDS: CEFEPIME 2,000 MG in SYRINGE 0 ML IV SCH (12:33)
[2020-03-11 15:43] VITALS: TEMP 98.2; O2SAT 99
[2020-03-11 16:54] VITALS: BP 132/86; PULSE 53
[2020-03-11] MEDS ORDERED: cefUROXime axetil 250 MG TABLET PO ONE (17:50)
[2020-03-11] MEDS ORDERED: HYDROCORTISONE 10 MG TAB PO SCH (21:00)
[2020-03-12] MEDS ORDERED: HYDROCORTISONE 10 MG TAB PO SCH (09:00)
--- NOTE | 2020-03-12 14:52 | Discharge Summary ---
Date of Service March 12, 2020 Admission HPI Per Admitting Provider This is a 54 yo F with significant PMHx of large right sphenoid wing meningioma diagnosed April 2019, underwent resection on 05/27/2019 in [place], [place] by Dr. Maurice, meningioma with extension into the cavernous sinus in April 2019 causing mass-effect on brainstem and cavernous ICA with surprisingly mild symptoms of gait instability, diplopia, dizziness and pulsatile tinnitus in the right ear. She underwent partial resection in [place] by Dr. Hidalgo in May. She started external beam radiation therapy in [place] completing 18 of 30 scheduled rounds. However she developed increased lethargy, fever, fullness in the right ear, headaches, metallic taste in the back of her throat and subsequent imaging was concerning for meningitis versus cerebritis. There was also some concern that her symptoms started around the same time her dexamethasone was switched to hydrocortisone, currently taking 15 mg QAM and 5 mg QPM. She was started on empiric antibiotics and transferred to [place] on September 02. Lumbar puncture was not performed for 5 days but ultimately did not grow any bacteria, however the opening pressure was elevated at 41. She developed expressive aphasia and worsening CALVIN (?vancomycin ?Contrast-induced). She became acutely unresponsive on September 11 and was transferred to the ICU. Started on high-dose dexamethasone due to increased edema, CT showed increased ventricle size. Repeat LP with opening pressure 46 (although patient agitated and restless), 30 cc drained. Trileptal added for possible seizures. She was ultimately discharged on September 19, 2019. Of note she did have an acute occlusive superficial venous thrombosis in the right cephalic vein and left basilic vein on September 13 upper extremity venous duplex (although suspect this was from peripheral IV lines). She was admitted in Nov 2019 where she was found to have bilateral PEs, placed on anticoagulation with Eliquis 5 mg BID for 6 months due to her history of meningioma. She had presented due to a rash which was determined to be due to Trileptal, which was then stopped, and rash improved. Other past medical history includes pituitary insufficiency, plantar fasciitis, posterior tibial tendinitis, and hypothyroidism. Today the pt presents to the ER with fever, chills, urinary complaints. She is found to be in septic shock- hypotensive with elevated lactate, and grossly infected urine. Pt has been on 3 round of antibiotics for suspected UTI. Most recently started Bactrim on 03/08, and took 1 dose and then again this morning. But was nauseous today and ended up vomiting shortly after taking all her morning medications. She reports having a fever last evening of 99.0, took Tylenol and went to bed. She then awoke with a fever of 103 today as well as having rigors/chills overnight. She reports that in the last 3 weeks she has been on several rounds of different antibiotics. Patient cannot recall having a UA or urine culture obtained at the beginning of her symptoms. Main complaint is increased frequency with needing to wake up 10-12 times per night and voiding 1 tablespoon urine at a time. Denies hematuria, pyuria, admits to recent darkened urine. She has vomited several times in the last 2 days and feels extremely dry. Patient was able to keep 1 cup of water down since being here in the ER. She is also received a total of 1.5L NSS and 1 L LR in the ER. Pressures have slowly improved to improved from 74/41 to 95/43. She states that she feels slightly better at this point time. Her is out in the parking lot and all his questions and concerns were answered. Reports pt recently was treated for UTI - had Bactrim DS BID rx on 01/26 for a course, then again on 02/12 keflex 500 mg BID x 5 days, and then Bactrim DS BID x 7 days on 03/08 (only took 2 doses, vomited shortly after taking today's AM dose). Principal Diagnosis Septic shock Discharge Exam Constitutional well nourished, + well hydrated, cooperative and comfortable; no acute distress, not ill appearing and no altered mental status Respiratory normal respiratory effort, lungs clear to auscultation Cardiovascular Rate/Rhythm: regular rate and regular rhythm trace edema of the ankles bilaterally Neurologic PERRL, EOMI, accommodation nl, no face palsy, no dysarthria Psychiatric A+Ox3, euthymic affect Discharge Data Allergies Allergy/AdvReac Type Severity Reaction Status Date / Time oxcarbazepine Allergy Severe Rash Verified 03/09/20 13:29 [From Trileptal] hydrocodone Allergy Unknown vomiting Verified 03/09/20 13:29 gluten AdvReac Unknown GI upset Verified 03/09/20 13:29 corn AdvReac Gastrointestinal Verified 03/09/20 13:29 Upset Consultations 03/09/20 13:29 ED Decision to Admit Stat 03/09/20 16:30 Consult Case Management - Discharge Planning Routine Consult Health Information Management Stat Ordered Studies 03/09/20 13:03 CT abd pelvis wo con Stat 03/09/20 13:28 CT head/brain wo con Stat Hospital Course (1) Septic shock: Yaima Nelson is a 54yo female with a PMH of 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 Septic shock, UTI, CALVIN Patient presented on 03/09/2020 with nausea, vomiting, and unable to tolerate PO in the setting of recent oral antibiotic treatment for UTI. She had been on bactrim for a week in mid-January for UTI, then five days of keflex in early February, before going back on bactrim starting 03/08; she had only taken two doses of this before vomiting and coming to the ED. Home antihypertensives were held, and patient was placed on IV cefepime, IV vancomycin, IVF, and stress dose hydrocortisone. Patient made a dramatic recovery over the course of a few hours, and soon felt nearly back to baseline with the exception of mild lower extremity and wrist/hand edema. IVF were discontinued as patient was tolerating PO and had adequate intake. Stress dose hydrocortisone was reduced (100mg q8h down to 60mg q12h). On 03/10, patient developed nonpruritic flushing of the face, torso, and arms; vancomycin was discontinued due to concern for se syndrome. Patient continued to improve, as did her creatinine back to near baseline (2.19 on admission, improved to 1.32, baseline ~0.9). On 03/11, patient felt back to normal and all concerning aspects of her presentation had resolved. She was discharged home with a five-day course of cefuroxime, instructions to continue hydrocortisone 60mg for two more doses before returning to her home dose (15mg qAM, 5mg qpm). 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 Patient reports this tumor is slow-growing and has an excellent prognosis. Patient is on chronic steroids for this diagnosis and has since developed pituitary and adrenal insufficiency. Stress dose hydrocortisone was administered as described above. Patient was gradually stepped down to 60mg q12 as described above, with instructions to step down to home dose as described above. Patient reports her next follow-up appointment with MD Zendejas is in June. History of bilateral PE Patient has a history of bilateral PE in 11/2019 which was successfully treated. Patients home dose eliquis 5mg bid was continued during her stay. Within hours of receiving treatment, patient felt well enough to ambulate around the unit. Patient was discharged on her home dose eliquis. Hypothyroidism Patients home dose levothyroxine was continued during her hospitalization and continued upon discharge. Patients hypothyroidism did not play a major ole in her clinical course during her stay. Anxiety Patients home dose escitalopram was continued during her hospitalization and continued upon discharge. Patients anxiety did not play a major ole in her cli nical course during her stay. (2) Meningioma: (3) Pituitary insufficiency: (4) Hypothyroidism: Total Time Total Time Spent Total Time Spent (In Minutes): see attending documentation Discharge Plan Discharge Items Patient Disposition: Home - Self-Care Reason For Visit: SEPSIS Discharge Diagnosis: Septic shock secondary to urinary tract infection Activity: Resume your previous activity Non-emergency contact: Primary Care Provider Call non-emergency contact if: you have any medication questions, your symptoms worsen and you have a fever Follow-up/Referrals: Alicia Acosta DO [Primary Care Provider] - Diet: Regular Addtl Attending Provider Instructions: You were admitted for septic shock due to a urinary tract infection. We treated you with IV antibiotics, IV steroids, and IV fluids. You improved dramatically over the course of a few hours and your symptoms, lab tests, and vitals are all very reassuring. We are confident that your infection can be safely treated from home with oral medicines. We have sent a prescription for an antibiotic to your pharmacy called [facility]. Take one 250mg tablet twice daily for five more days. One of the medicines you currently take, protonix (pantoprazole) can reduce absorption of this antibiotic. Please do not take your protonix until after you complete your antibiotic prescription. Regarding the dose of your hydrocortisone, we would like to continue our stress dose for one more day. Please take 60mg hydrocortisone tonight, and then 60mg hydrocortisone tomorrow morning (March 12 in the morning). After this, please return to your normal home dose of hydrocortisone. This means that in the evening of March 12, you will take 5mg hydrocortisone, and continue that each night, and on the morning of March 13, you will take 15mg hydrocortisone, and continue that each morning. After discharge, restart your blood pressure medicines the normal dose and frequency that you were taking them at before you came to the hospital. Please follow up with your primary care physician within one week. If you experience a worsening of symptoms, please call your primary care physician. If you experience an emergency, please call 911 or go to the nearest emergency department immediately. Thank you for allowing us to participate in your care. Pending Studies at Discharge: No Stand-Alone Forms: My [facility] [employer], Smoking Cessation Medications and DC Order Prescriptions: New cefuroxime axetil 250 mg tablet 250 mg PO BID 5 Days Qty: 10 RF: 0 Continued pantoprazole [Protonix] 40 mg tablet,delayed release (DR/EC) 40 mg PO DAILY RF: 0 cholecalciferol (vitamin D3) 125 mcg (5,000 unit) tablet,disintegrating 125 mcg PO WEEKLY RF: 0 amlodipine [Norvasc] 5 mg tablet 5 mg PO DAILY RF: 0 triamcinolone acetonide 0.1 % cream 1 applic TOPICAL SPACE RF: 0 Eliquis 5 mg tablet 5 mg PO BID Qty: 60 RF: 5 hydrocortisone 10 mg tablet See Rx Instructions .ROUTE .COMPLEX RF: 0 lisinopril 10 mg tablet 5 mg PO DAILY RF: 0 metoprolol succinate 25 mg tablet extended release 24 hr 12.5 mg PO HS RF: 0 levothyroxine [Synthroid] 125 mcg Tablet 125 mcg PO QAM RF: 0 escitalopram oxalate [Lexapro] 10 mg Tablet 10 mg PO QAM RF: 0 Discharge Orders: Discharge Order (Routine); Ordered 03/11/20 Ordered By: Rohith Hays Admission Data Admit Date/Time: 03/09/20 14:43 Attending Provider: Mitali Lockhart Admit Provider: Tawanda Garner Primary Care Provider: Alicia Acosta Other Providers: Tawanda Garner Other Interventions: Discharge Summary Assessment (RN) Last Done: 03/11/20 16:51 Supervising Physician Co-Signing Physician Notes Patient seen and examined with PGY-1 Dr. Hays. Agree with history, exam findings, assessment and plan as outlined. In brief, Ms. Joshi is a 54 year old female with history of right sphenoid wing meningioma (dx Apr 2019) s/p resection in May. Recovery complicated by meningitis vs cerebritis and bilateral PE (dx Nov 2019) admitted with sepsis. Today she feels much better. Did note that she had some facial/cheek flushing after receiving cefepime this afternoon, but otherwise feels well. Not requiring O2 and blood pressures have been stable on stress does steroids. Vital signs and nursing notes reviewed. Well appearing. Erythematous cheeks, but not flushing on the chest, neck or arms. +1 edema bilateral lower extremities. Labs and imaging reviewed. 1. Septic shock secondary to urinary source. Received cefepime today (had flushing and erythema due to vanc). Getting stress dose steroidscontinue with stress dose for another day then decrease back down to baseline (see below). Urine culture with less than 1k colonies. Blood cultures without growth x 48 hours. Will discharge on cefuroxime. 2. CALVIN. Cr 0.95 (improved from 2.19 on admission) 3. Meningioma. Stable. 4. Bilateral PE. Continue home Eliquis 5mg BID. 5. Pituitary insufficiency. Getting stress dose hydrocortisone 60mg q12h, continue for another day, then decrease down to home dose of hydrocortisone. 6. Hypothyroid. Continue home synthroid 125mcg. 7. Anemia. Hgb 13.0 on admission drifted down to 9.7. Possibly dilutional as she received several liters of fluids. Repeat CBC in 1 week. 8. HTN. Home meds were held during admission, but these should be restarted on discharge. Dispo: discharge home today. I personally spent 25 minutes discharge planning for this patient. Resident Activity Tracking Resident Involvement: Resident Care Provided Care Provided: Adult Hospital Medicine
== END 2020-03-11 17:13 | disposition home or self-care (01) | DRG 871 ==
LOC: ED 11:20 → 2S 14:43 → SUATTDRO 14:43 → 2S 16:05

== ENCOUNTER 2020-07-09 19:52 | Inpatient (IN) ==
[2020-07-09] MEDS ORDERED: PIPERACILLIN/TAZOBACTAM 4.5 GM/120 ML BAG IV ONE (20:38)
[2020-07-09] MEDS ORDERED: PIPERACILL/TAZOBAC CONSULT ACTIVE PRN (20:38)
[2020-07-09] MEDS ORDERED: HYDROCORTISONE SOD SUCCINATE 100 MG/2 ML VIAL IV STA (20:41)
[2020-07-09] MEDS ORDERED: SODIUM CHLORIDE 0.9% 1000ML 1,000 ML IV ONE (20:43)
[2020-07-09 20:48] LABS: Eosinophils # (auto) 0.02 K/uL (0-0.5); Eosinophils % (auto) 0.2 %; Hematocrit (blood only) 37.2 % (37-47); Hemoglobin 12.1 g/dL (12.0-16.0); Immature Granulocytes # (auto) 0.03 K/uL (0.00-0.02); Immature Granulocytes % (auto) 0.2 %; Lymphocytes # (auto) 0.26 K/uL (1.2-3.4); Lymphocytes % (auto) 2.1 %; Mean Corpuscular Hemoglobin 26.4 pg (25-34); Mean Corpuscular Hgb Conc 32.5 g/dL (32-36); Mean Platelet Volume 10.2 fL (7.4-10.4); Monocytes # (auto) 0.34 K/uL (0.11-0.59); Monocytes % (auto) 2.7 %; Neutrophils # (auto) 12.02 K/uL (1.4-6.5); Neutrophils % (auto) 94.8 %; Platelet Count 273 K/uL (130-400); RDW Coefficient of Variation 14.8 % (11.5-14.5); RDW Standard Deviation 43.5 fL (36.4-46.3); Red Blood Count 4.59 M/uL (4.2-5.4); White Blood Count 12.67 K/uL (4.8-10.8)
[2020-07-09 20:57] LABS: Albumin Level 3.5 gm/dl (3.4-5.0); BUN Creatinine Ratio 12.8 (10-20); Creatinine Clr Calc Pharmacy 70.1 ml/min; Est GFR (African American) 63.8; Est GFR (Non-African American) 55.1; Magnesium 1.8 mg/dl (1.8-2.4); Potassium 3.9 mmol/L (3.5-5.1)
[2020-07-09 20:58] LABS: INR 1.1 (0.9-1.1); Partial Thromboplastin Time 25.4 Seconds (21.0-31.0); Prothrombin Time 10.7 Seconds (9.0-12.0)
[2020-07-09] MEDS ORDERED: VANCOMYCIN HCL 2,750 MG in SODIUM CHLORIDE 0.9% 500 ML IV ONE (20:59)
[2020-07-09] MEDS ORDERED: VANCOMYCIN CONSULT ACTIVE PRN (20:59)
[2020-07-09 21:00] LABS: Bilirubin,Total 0.8 mg/dl (0.2-1); Globulin 3.6 gm/dl (2.5-4.0); Total Protein 7.1 gm/dl (6.4-8.2)
[2020-07-09 21:38] LABS: Influenza A virus by PCR Negative (Neg); Influenza B virus by PCR Negative (Neg); RSV by PCR Negative (Neg); SARS CoV2 RNA(COVID-19) InHosp NEGATIVE (Negative)
[2020-07-09] MEDS ORDERED: OPTIRAY 300 100mL IV ONE (21:41)
--- NOTE | 2020-07-09 21:43 | Emergency Department Note ---
Impression & Plan Mastitis, Fever, Adrenal insufficiency ED Provider Note NAME: TANI MARRERO AGE: 54 SEX: F ARRIVES VIA: Walk-In INFORMANT: Patient, ED PROVIDER(S): Yogesh Chance MD CHIEF COMPLAINT: Fever, ?mastitis PLAN: Disposition: Admit MEDICAL DECISION MAKING: The patient is a pleasant 54-year-old woman with a complicated past medical history partial resection of large meningioma which had extension into the cavernous sinus now with history of renal insufficiency related to prolonged steroids who presents to emergency department accompanied by her (a retired neurologist) for evaluation of fevers that began last evening with co ncern for possible cellulitis/mastitis. 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 with associated mass-effect on brainstem and cavernous ICA underwent partial resection in May 2019 in [facility] remained completed 18 of 30 scheduled rounds of external beam radiation which was cut short due to concern for radiation toxicity, history of pulmonary embolism in November 2019 currently on Eliquis and history of adrenal insufficiency thought to be related to chronic steroids resulting in pituitary and adrenal insufficiency with associated hyperprolactinemia who presents emergency department with fevers up to 101.5 at home which began yesterday evening in the setting of developing galactorrhea with drainage from punctate wound in the setting recent breast biopsy for small benign nodule/mass ([id number]) by Dr. Manning. The patient reports she contacted her surgeon's office and Dr. Chapman the surgeon on-call for Dr. Manning prescribed Bactrim however the patient was feeling worse tonight and presents to emergency department due to her concern for adrenal insufficiency and possible abscess/mastitis. The patient fatigued appearing but no acute distress, afebrile stable vital signs. She has indurated/?fluctuant area of the right breast deep to punctate wound with discharge consistent with galactorrhea and less likely purulence given no foul odor noted however culture was sent. There is no tender local ly mphadenopathy noted. Given her adrenal insufficiency she was ordered for empiric broad-spectrum ant ibiotic with Zosyn and vancomycin. She was given additional IV dose of hydrocortisone for stress dose. EKG without overt acute ischemia. Chest x-ray negative for acute cardiopulmonary process per my preliminary review. WBC 12.6K nonspecific. H/H and platelets within normal limits. Initial lactate 2.2 however chemistry without metabolic acidosis. Electrolytes and LFTs unremarkable. Procalcitonin is not elevated. Prolactin is 49 which is decreased from the patient's report of recent value of over 100. COVID-19 PCR negative. Influenza and RSV PCR also negative. CT of the chest with contrast was performed and per preliminary stat read report does not show discrete fluid collection but there is inflammatory changes that are nonspecific and may suggest cellulitis/mastitis. Of note, there is no deep tracking component of infection. Otherwise most likely atelectasis noted given the patient denies any cough or congestion. On reevaluation patient did feel improved after initial IV fluid hydration, stress dose steroids and antibiotics. Given the patient's adrenal insufficiency in the setting of fever with suspected cellulitis/mastitis reasonable to admit the patient for further management. Patient and her at bedside are in agreement with this plan. Triage Nursing notes reviewed and agree them. Prior medical records reviewed Vital Signs: reviewed and remarkable for no significant abnormalities Differential diagnosis: Cellulitis, abscess, MRSA infection, DVT, necrotizing fasciitis, dermatitis, drug eruption, allergic reaction, as well as other pathologies. ER treatment provided: See below. Diagnostics interpreted by me: ECG: Normal sinus rhythm, 82 bpm, no ectopy, no overt ST elevation or depression, QTC 443, QRS 80. Cardiac Monitoring: An order for continuous cardiac monitoring was placed and demonstrated Normal sinus rhythm, 82 bpm, no ectopy. Laboratory studies: See below Imaging studies: CXR: No acute cardiopulmonary process per my preliminary review. [facility] Preliminary Findings Only See Final Report For Complete Findings ADDENDUM - Added by Bre Quinonez MD on 07/09/2020 10:23 PM (-07:00) Note to be made that along the right breast there is diffuse thickening of the skin in the region of the nipple and areola with stranding of the subcutaneous fat suggestive of nonspecific inflammatory process such as cellulitis or mastitis. There is no fluid collection to suggest abscess. CT CHEST With Contrast: Minimal bilateral right middle lobe, lingular and left lower lobe atelectasis. Otherwise normal lung parenchyma. No pleural effusion or pneumothorax. Normal cardiac size. Unremarkable mediastinum and hilar regions. Unremarkable bony structures. Radiologist: Bre Quinonez MD Study ready at 22:04 and initial results transmitted at 22:10 Communications: Clear Time Type Notes 07/09/20 22:42 Call From Hospital has question on report Consultation(s): Dr. Garner, [facility] hospitalist, to evaluate the patient for admission. HPI: The patient is a pleasant 54-year-old woman with a complicated past medical history partial resection of large meningioma which had extension into the cavernous sinus now with history of renal insufficiency related to prolonged steroids who presents to emergency department accompanied by her (a retired neurologist) for evaluation of fevers that began last evening with concern for possible cellulitis/mastitis. 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 with associated mass-effect on brainstem and cavernous ICA underwent partial resection in May 2019 in [facility] remained completed 18 of 30 scheduled rounds of external beam radiation which was cut short due to concern for radiation toxicity, history of pulmonary embolism in November 2019 currently on Eliquis and history of adrenal insufficiency thought to be related to chronic steroids resulting in pituitary and adrenal insufficiency with associated hyperprolactinemia who presents emergency department with fevers up t o 101.5 at home which began yesterday evening in the setting of developing galactorrhea with drainage from punctate wound in the setting recent breast biopsy for small benign nodule/mass ([id number]) by Dr. Manning. The patient reports she contacted her surgeon's office and Dr. Chapman the surgeon on-call for Dr. Manning prescribed Bactrim however the patient was feeling worse tonight and presents to emergency department due to her concern for adrenal insufficiency and possible abscess/mastitis. ROS: See above HPI for pertinent positives & negatives. A total of 10 systems reviewed and were otherwise negative. PAST MEDICAL HISTORY:See Below PAST SURGICAL HISTORY:See Below FAMILY HISTORY:See Below SOCIAL HISTORY:See Below HOME MEDICATIONS:See Below ALLERGIES:See Below VITALS:See Below PHYSICAL EXAMINATION: GENERAL: Awake, alert, fatigued-appearing, in no distress. BMI 37.7 HENT: Normocephalic, atraumatic. Oropharynx with dry mucous membranes and otherw ise unremarkable. EYES: Normal conjunctiva. Sclera non-icteric. NECK: Supple. No nuchal rigidity. FROM. No JVD. RESPIRATORY: Clear to auscultation. CARDIAC: Tachycardic rate, normal rhythm. Extremities warm and well perfused. Pulses equal. ABDOMEN: Soft, non-distended. No tenderness to palpation. No rebound or guarding. No masses. RECTAL: Deferred. MUSCULOSKELETAL: Chest examination reveals no tenderness. The back is symmetrical on inspection without obvious abnormality. There is no CVA tenderne ss to palpation. No joint edema. LOWER EXTREMITIES: Calves are equal size bilaterally and non-tender. No edema. No discoloration. NEURO: Normal sensorium. No sensory or motor deficits noted. SKIN: Right breast status post excision of benign nipple mass including resection of nipple with punctate wound with galactorrhea-like discharge without foul-smelling odor. There is no overlying erythema or warmth. There is mild induration/?fluctuance deep to the area of discharge with mild tenderness. No local tender LAD. No jaundice noted. ED COURSE: Critical Care: I have personally spent greater than 45 minutes of critical care time in the direct management of this patient. This includes bedside care, interpretation of diagnostic studies, and testing, discussion with consultants, patient, and family members, and other required patient management activities. This 45 minutes is in excess of all separately billable procedures. Yogesh Chance MD Past Med/Surg History Medical History Acute dyspnea Anxiety Bilateral pulmonary embolism Chest CTA 12/16/19 with a small amount of residual pulmonary embolus within the left-sided pulmonary arteries as above, This has significantly improved as compared to 11/12/2019, There is chronic elevation of the right hemidiaphragm with segmental atelectasis at both lung bases, No airspace consolidation is seen typical for pneumonia and there is no pleural effusion. History of recent hospitalization History of torn meniscus of left knee Hx of [place] thyroiditis Hypothyroidism IgA deficiency follows with PSH (Dr. Acosta) Lichen sclerosus Lichen sclerosus et atrophicus Meningioma s/p subtotal resection 05/2019 and XRT. MRI brain 12/16/19 with Persistent large extra-axial enhancing skull base mass with bilateral cavernous sinus involvement and bilateral internal carotid encasement. The mass remains similar in size measuring approximately 5 x 4.6 x 4.6 cm. The findings are consistent with a meningioma. Postsurgical changes of a prior right temporal craniotomy. Stable dilatation of the right temporal horn and right temporal lobe T2 edema. Stable mass effect on the alejandra, and optic chiasm. There is interval nonspecific foci of punctate enhancement within the alejandra. This finding is of uncertain etiology and significance and could possibly be secondary to vascular enhancement from tumoral compression, or spinal dural invasion. No evidence of acute or subacute infarction MGUS (monoclonal gammopathy of unknown significance) Migraine Osteoarthritis Postmenopausal Surgical History H/O LEEP 2015, kirt 1 History of brain surgery transpetrosal craniotomy for subtotal resection 05/2019 History of section X2 History of colonoscopy History of tonsillectomy Hx of abdominal surgery uterine ablation (2008) Nausea and vomiting after administration of anesthetic agent Family History Mother Hypothyroidism Alzheimer disease Father Pre-diabetes Grandmother (Maternal) Non-Hodgkin lymphoma Denies family history of Ovarian cancer Breast cancer Colorectal cancer Social History Smoking Status: Never smoker Second Hand Exposure: No; Hx Alcohol Use: Yes Alcohol type: wine Alcohol Intake Frequency Comment: 2-3 imes per week Hx Substance Use: No Preferred Language: Arabic Communication Ability: Effective Hearing Ability: Hard of Hearing Parking Enforcement Technician Required: No Beliefs That Will Affect Care: None marital status: Current Living Situation: Spouse current occupational status: previously employed current occupation: pediatric physical therapist Feels Safe at Home: Yes Childhood Exposure to Second-Hand Smoke: Yes caffeine: Yes (occ coffee, ) during the past year weight has: remained stable Dental Care, Regularly: Yes Physical Activity Frequency: 3-4 Times per Week Seatbelt Use: always Sunscreen Use: Yes Assistive Devices: Glasses Allergies Allergies Allergy/AdvReac Type Severity Reaction Status Date / Time oxcarbazepine Allergy Severe Rash Verified 07/09/20 20:40 [From Trileptal] corn AdvReac Intermediate LEGS SWELL Verified 07/09/20 20:40 gluten AdvReac Intermediate LEGS SWELL Verified 07/09/20 20:40 hydrocodone AdvReac Intermediate vomiting Verified 07/09/20 20:40 Home Meds Home Medications Medication Instructions Recorded Confirmed escitalopram oxalate [Lexapro] 10 mg PO QAM 10/30/18 07/09/20 cholecalciferol (vitamin D3) 125 125 mcg PO WEEKLY tab 07/15/19 07/09/20 mcg (5,000 unit) disintegrating tablet pantoprazole 40 mg tablet,delayed 40 mg PO DAILY 07/15/19 07/09/20 release hydrocortisone See Rx Instructions .ROUTE .COMPLEX 12/16/19 07/09/20 lisinopril 5 mg PO DAILY 03/09/20 07/09/20 metoprolol succinate 12.5 mg PO HS 03/09/20 07/09/20 levothyroxine 100 mcg PO QAM 07/09/20 07/09/20 Previous Rx's Medication Instructions Recorded Eliquis 5 mg PO BID #60 tab 11/14/19 clobetasol 0.05 % topical ointment 1 applic TOPICAL .COMPLEX #15 g 03/23/20 sulfamethoxazole 800 1 tab PO BID #20 tab 07/09/20 mg-trimethoprim 160 mg tablet Results & Data (ED) Vital Signs Vital Signs - 24 hr 07/09/20 19:57 07/09/20 20:23 07/09/20 20:36 Temperature 37 C Temperature Source Temporal Artery Scan Pulse Rate 100 H 91 H 91 H Pulse Rate [Right Finger] Pulse Rate from SpO2 Sensor 91 H 91 H Pulse Rhythm [Right Finger] Pulse Strength [Right Finger] Respiratory Rate 18 15 17 Respiratory Effort / Characteristics Respiratory Depth Normal Respiratory Pattern Blood Pressure 121/84 133/79 Blood Pressure [Left Arm] Blood Pressure Mean 96 97 Blood Pressure Mean [Left Arm] Blood Pressure Position [Left Arm] Pulse Oximetry 95 99 99 Oxygen Delivery Method Room Air Sepsis Recent Fever Within 48 Hours Yes Sepsis New/Unexplained Change in Mental Status N/A Sepsis Action Taken by Nursing Physician Notified 07/09/20 20:45 07/09/20 21:00 07/09/20 21:15 Temperature Temperature Source Pulse Rate 89 84 79 Pulse Rate [Right Finger] 97 H Pulse Rate from SpO2 Sensor 88 84 79 Pulse Rhythm [Right Finger] Regular Pulse Strength [Right Finger] Normal Respiratory Rate 27 H 16 17 Respiratory Effort / Characteristics Non-Labored Spontaneous Accessory Muscle Use Respiratory Depth Normal Respiratory Pattern Regular Blood Pressure Blood Pressure [Left Arm] 133/79 Blood Pressure Mean Blood Pressure Mean [Left Arm] 97 Blood Pressure Position [Left Arm] Lying Pulse Oximetry 98 100 99 Oxygen Delivery Method Room Air Sepsis Recent Fever Within 48 Hours Sepsis New/Unexplained Change in Mental Status Sepsis Action Taken by Nursing 07/09/20 21:16 07/09/20 21:30 07/09/20 22:00 Temperature Temperature Source Pulse Rate 84 86 Pulse Rate [Right Finger] Pulse Rate from SpO2 Sensor 83 Pulse Rhythm [Right Finger] Pulse Strength [Right Finger] Respiratory Rate 16 23 Respiratory Effort / Characteristics Non-Labored Spontaneous Accessory Muscle Use Respiratory Depth Respiratory Pattern Blood Pressure Blood Pressure [Left Arm] Blood Pressure Mean Blood Pressure Mean [Left Arm] Blood Pressure Position [Left Arm] Pulse Oximetry 99 Oxygen Delivery Method Sepsis Recent Fever Within 48 Hours Sepsis New/Unexplained Change in Mental Status Sepsis Action Taken by Nursing 07/09/20 22:01 07/09/20 22:02 07/09/20 22:15 Temperature 37.6 C Temperature Source Pulse Rate 84 83 84 Pulse Rate [Right Finger] Pulse Rate from SpO2 Sensor 84 83 84 Pulse Rhythm [Right Finger] Pulse Strength [Right Finger] Respiratory Rate 18 13 16 Respiratory Effort / Characteristics Respiratory Depth Respiratory Pattern Blood Pressure 111/70 Blood Pressure [Left Arm] Blood Pressure Mean 83 Blood Pressure Mean [Left Arm] Blood Pressure Position [Left Arm] Pulse Oximetry 98 98 98 Oxygen Delivery Method Sepsis Recent Fever Within 48 Hours Sepsis New/Unexplained Change in Mental Status Sepsis Action Taken by Nursing 07/09/20 22:16 07/09/20 22:30 07/09/20 22:45 Temperature Temperature Source Pulse Rate 84 83 Pulse Rate [Right Finger] Pulse Rate from SpO2 Sensor 84 Pulse Rhythm [Right Finger] Pulse Strength [Right Finger] Respiratory Rate 26 H 16 Respiratory Effort / Characteristics Non-Labored Non-Labored Spontaneous Accessory Muscle Use Respiratory Depth Respiratory Pattern Blood Pressure Blood Pressure [Left Arm] Blood Pressure Mean Blood Pressure Mean [Left Arm] Blood Pressure Position [Left Arm] Pulse Oximetry 98 Oxygen Delivery Method Sepsis Recent Fever Within 48 Hours Sepsis New/Unexplained Change in Mental Status Sepsis Action Taken by Nursing 07/09/20 22:49 07/09/20 23:00 07/09/20 23:15 Temperature Temperature Source Pulse Rate 84 87 84 Pulse Rate [Right Finger] Pulse Rate from SpO2 Sensor 87 83 Pulse Rhythm [Right Finger] Pulse Strength [Right Finger] Respiratory Rate 18 13 17 Respiratory Effort / Characteristics Non-Labored Spontaneous Accessory Muscle Use Respiratory Depth Respiratory Pattern Blood Pressure 109/57 L 109/71 Blood Pressure [Left Arm] Blood Pressure Mean 74 83 Blood Pressure Mean [Left Arm] Blood Pressure Position [Left Arm] Pulse Oximetry 96 98 Oxygen Delivery Method Sepsis Recent Fever Within 48 Hours Sepsis New/Unexplained Change in Mental Status Sepsis Action Taken by Nursing 07/09/20 23:16 07/09/20 23:17 07/09/20 23:24 Temperature Temperature Source Pulse Rate 87 82 Pulse Rate [Right Finger] Pulse Rate from SpO2 Sensor 86 81 Pulse Rhythm [Right Finger] Pulse Strength [Right Finger] Respiratory Rate 12 20 Respiratory Effort / Characteristics Non-Labored Spontaneous Accessory Muscle Use Respiratory Depth Respiratory Pattern Blood Pressure 117/53 L Blood Pressure [Left Arm] Blood Pressure Mean 74 Blood Pressure Mean [Left Arm] Blood Pressure Position [Left Arm] Pulse Oximetry 97 97 Oxygen Delivery Method Sepsis Recent Fever Within 48 Hours Sepsis New/Unexplained Change in Mental Status Sepsis Action Taken by Nursing Laboratory Data Attestation: I reviewed the patient's lab results. Result diagrams: 07/09/20 20:35 07/09/20 20:35 Lab Results 07/09/20 07/09/20 07/09/20 Range/Units 20:34 20:34 20:35 WBC (4.8-10.8) K/uL RBC (4.2-5.4) M/uL Hgb (12.0-16.0) g/dL Hct (37-47) % MCV (80-100) fL MCH (25-34) pg MCHC (32-36) g/dL RDW Std Deviation (36.4-46.3) fL RDW Coeff of Ly (11.5-14.5) % Plt Count (130-400) K/uL MPV (7.4-10.4) fL Immature Gran % (Auto) % Neut % (Auto) % Lymph % (Auto) % [place] % (Auto) % Eos % (Auto) % Baso % (Auto) % Neut # (Auto) (1.4-6.5) K/uL Lymph # (Auto) (1.2-3.4) K/uL [place] # (Auto) (0.11-0.59) K/uL Eos # (Auto) (0-0.5) K/uL Baso # (Auto) (0-0.2) K/uL Immature Gran # (Auto) (0.00-0.02) K/uL PT (9.0-12.0) Seconds INR (0.9-1.1) APTT (21.0-31.0) Seconds PTT Ratio Sodium (136-145) mmol/L Potassium (3.5-5.1) mmol/L Chloride (98-107) mmol/L Carbon Dioxide (21-32) mmol/L Anion Gap (3-11) BUN (7-18) mg/dl Creatinine (0.6-1.2) mg/dl Est Cr Clr Drug Dosing ml/min Est GFR ( Amer) Est GFR (Non-Af Amer) BUN/Creatinine Ratio (10-20) Glucose (70-99) mg/dl Lactate (0.4-2.0) mmol/L Calcium (8.5-10.1) mg/dl Magnesium (1.8-2.4) mg/dl Total Bilirubin (0.2-1) mg/dl AST (15-37) U/L ALT (12-78) U/L Alkaline Phosphatase (45-117) U/L Total Protein (6.4-8.2) gm/dl Albumin (3.4-5.0) gm/dl Globulin (2.5-4.0) gm/dl Albumin/Globulin Ratio (0.9-2) Procalcitonin (0-0.5) ng/ml Prolactin 49.14 ng/ml Urine Color Urine Appearance (Clear) Urine pH (4.5-7.5) Ur Specific [place] (1.000-1.030) Urine Protein (Negative) Urine Glucose (UA) (Negative) Urine Ketones (Negative) Urine Blood (Negative) Urine Nitrite (Negative) Urine Bilirubin (Negative) Urine Urobilinogen (Negative) Ur Leukocyte Esterase (Negative) Urine WBC (Auto) (0-5) /hpf Urine RBC (Auto) (0-4) /hpf U Hyaline Cast (Auto) (0-5) /lpf U Epithel Cells (Auto) (0-5) /lpf Urine Bacteria (Auto) (Negative) COVID-19 Eval Order CovFluRsv at [facility] SARS-CoV-2 (PCR) NEGATIVE (Negative) Influenza Type A (PCR) Negative (Neg) Influenza Type B (PCR) Negative (Neg) RSV (RT-PCR) Negative (Neg) 07/09/20 07/09/20 07/09/20 Range/Units 20:35 20:35 20:35 WBC 12.67 H (4.8-10.8) K/uL RBC 4.59 (4.2-5.4) M/uL Hgb 12.1 (12.0-16.0) g/dL Hct 37.2 (37-47) % MCV 81.0 (80-100) fL MCH 26.4 (25-34) pg MCHC 32.5 (32-36) g/dL RDW Std Deviation 43.5 (36.4-46.3) fL RDW Coeff of Ly 14.8 H (11.5-14.5) % Plt Count 273 (130-400) K/uL MPV 10.2 (7.4-10.4) fL Immature Gran % (Auto) 0.2 % Neut % (Auto) 94.8 % Lymph % (Auto) 2.1 % Will[place] % (Auto) 2.7 % Eos % (Auto) 0.2 % Baso % (Auto) 0.0 % Neut # (Auto) 12.02 H (1.4-6.5) K/uL Lymph # (Auto) 0.26 L (1.2-3.4) K/uL [place] # (Auto) 0.34 (0.11-0.59) K/uL Eos # (Auto) 0.02 (0-0.5) K/uL Baso # (Auto) 0.00 (0-0.2) K/uL Immature Gran # (Auto) 0.03 H (0.00-0.02) K/uL PT 10.7 (9.0-12.0) Seconds INR 1.1 (0.9-1.1) APTT 25.4 (21.0-31.0) Seconds PTT Ratio 1.0 Sodium (136-145) mmol/L Potassium (3.5-5.1) mmol/L Chloride (98-107) mmol/L Carbon Dioxide (21-32) mmol/L Anion Gap (3-11) BUN (7-18) mg/dl Creatinine (0.6-1.2) mg/dl Est Cr Clr Drug Dosing ml/min Est GFR ( Amer) Est GFR (Non-Af Amer) BUN/Creatinine Ratio (10-20) Glucose (70-99) mg/dl Lactate (0.4-2.0) mmol/L Calcium (8.5-10.1) mg/dl Magnesium (1.8-2.4) mg/dl Total Bilirubin (0.2-1) mg/dl AST (15-37) U/L ALT (12-78) U/L Alkaline Phosphatase (45-117) U/L Total Protein (6.4-8.2) gm/dl Albumin (3.4-5.0) gm/dl Globulin (2.5-4.0) gm/dl Albumin/Globulin Ratio (0.9-2) Procalcitonin < 0.05 (0-0.5) ng/ml Prolactin ng/ml Urine Color Urine Appearance (Clear) Urine pH (4.5-7.5) Ur Specific [place] (1.000-1.030) Urine Protein (Negative) Urine Glucose (UA) (Negative) Urine Ketones (Negative) Urine Blood (Negative) Urine Nitrite (Negative) Urine Bilirubin (Negative) Urine Urobilinogen (Negative) Ur Leukocyte Esterase (Negative) Urine WBC (Auto) (0-5) /hpf Urine RBC (Auto) (0-4) /hpf U Hyaline Cast (Auto) (0-5) /lpf U Epithel Cells (Auto) (0-5) /lpf Urine Bacteria (Auto) (Negative) COVID-19 Eval Order SARS-CoV-2 (PCR) (Negative) Influenza Type A (PCR) (Neg) Influenza Type B (PCR) (Neg) RSV (RT-PCR) (Neg) 07/09/20 07/09/20 07/09/20 Range/Units 20:35 20:35 22:00 WBC (4.8-10.8) K/uL RBC (4.2-5.4) M/uL Hgb (12.0-16.0) g/dL Hct (37-47) % MCV (80-100) fL MCH (25-34) pg MCHC (32-36) g/dL RDW Std Deviation (36.4-46.3) fL RDW Coeff of Ly (11.5-14.5) % Plt Count (130-400) K/uL MPV (7.4-10.4) fL Immature Gran % (Auto) % Neut % (Auto) % Lymph % (Auto) % [place] % (Auto) % Eos % (Auto) % Baso % (Auto) % Neut # (Auto) (1.4-6.5) K/uL Lymph # (Auto) (1.2-3.4) K/uL [place] # (Auto) (0.11-0.59) K/uL Eos # (Auto) (0-0.5) K/uL Baso # (Auto) (0-0.2) K/uL Immature Gran # (Auto) (0.00-0.02) K/uL PT (9.0-12.0) Seconds INR (0.9-1.1) APTT (21.0-31.0) Seconds PTT Ratio Sodium 136 (136-145) mmol/L Potassium 3.9 (3.5-5.1) mmol/L Chloride 104 (98-107) mmol/L Carbon Dioxide 26 (21-32) mmol/L Anion Gap 6.0 (3-11) BUN 15 (7-18) mg/dl Creatinine 1.13 (0.6-1.2) mg/dl Est Cr Clr Drug Dosing 70.1 ml/min Est GFR ( Amer) 63.8 Est GFR (Non-Af Amer) 55.1 BUN/Creatinine Ratio 12.8 (10-20) Glucose 116 H (70-99) mg/dl Lactate 2.2 H* (0.4-2.0) mmol/L Calcium 9.0 (8.5-10.1) mg/dl Magnesium 1.8 (1.8-2.4) mg/dl Total Bilirubin 0.8 (0.2-1) mg/dl AST 28 (15-37) U/L ALT 39 (12-78) U/L Alkaline Phosphatase 86 (45-117) U/L Total Protein 7.1 (6.4-8.2) gm/dl Albumin 3.5 (3.4-5.0) gm/dl Globulin 3.6 (2.5-4.0) gm/dl Albumin/Globulin Ratio 1.0 (0.9-2) Procalcitonin (0-0.5) ng/ml Prolactin ng/ml Urine Color Yellow Urine Appearance Clear (Clear) Urine pH 7.0 (4.5-7.5) Ur Specific [place] 1.043 H (1.000-1.030) Urine Protein Trace H (Negative) Urine Glucose (UA) Negative (Negative) Urine Ketones Negative (Negative) Urine Blood Negative (Negative) Urine Nitrite Negative (Negative) Urine Bilirubin Negative (Negative) Urine Urobilinogen Negative (Negative) Ur Leukocyte Esterase Negative (Negative) Urine WBC (Auto) 1-5 (0-5) /hpf Urine RBC (Auto) 5-10 H (0-4) /hpf U Hyaline Cast (Auto) 0 (0-5) /lpf U Epithel Cells (Auto) 5-10 H (0-5) /lpf Urine Bacteria (Auto) Negative (Negative) COVID-19 Eval Order SARS-CoV-2 (PCR) (Negative) Influenza Type A (PCR) (Neg) Influenza Type B (PCR) (Neg) RSV (RT-PCR) (Neg) 07/09/20 07/09/20 Range/Units 22:30 23:20 WBC (4.8-10.8) K/uL RBC (4.2-5.4) M/uL Hgb (12.0-16.0) g/dL Hct (37-47) % MCV (80-100) fL MCH (25-34) pg MCHC (32-36) g/dL RDW Std Deviation (36.4-46.3) fL RDW Coeff of Ly (11.5-14.5) % Plt Count (130-400) K/uL MPV (7.4-10.4) fL Immature Gran % (Auto) % Neut % (Auto) % Lymph % (Auto) % [place] % (Auto) % Eos % (Auto) % Baso % (Auto) % Neut # (Auto) (1.4-6.5) K/uL Lymph # (Auto) (1.2-3.4) K/uL [place] # (Auto) (0.11-0.59) K/uL Eos # (Auto) (0-0.5) K/uL Baso # (Auto) (0-0.2) K/uL Immature Gran # (Auto) (0.00-0.02) K/uL PT (9.0-12.0) Seconds INR (0.9-1.1) APTT (21.0-31.0) Seconds PTT Ratio Sodium (136-145) mmol/L Potassium (3.5-5.1) mmol/L Chloride (98-107) mmol/L Carbon Dioxide (21-32) mmol/L Anion Gap (3-11) BUN (7-18) mg/dl Creatinine (0.6-1.2) mg/dl Est Cr Clr Drug Dosing ml/min Est GFR ( Amer) Est GFR (Non-Af Amer) BUN/Creatinine Ratio (10-20) Glucose (70-99) mg/dl Lactate 2.6 H* 2.1 H* (0.4-2.0) mmol/L Calcium (8.5-10.1) mg/dl Magnesium (1.8-2.4) mg/dl Total Bilirubin (0.2-1) mg/dl AST (15-37) U/L ALT (12-78) U/L Alkaline Phosphatase (45-117) U/L Total Protein (6.4-8.2) gm/dl Albumin (3.4-5.0) gm/dl Globulin (2.5-4.0) gm/dl Albumin/Globulin Ratio (0.9-2) Procalcitonin (0-0.5) ng/ml Prolactin ng/ml Urine Color Urine Appearance (Clear) Urine pH (4.5-7.5) Ur Specific [place] (1.000-1.030) Urine Protein (Negative) Urine Glucose (UA) (Negative) Urine Ketones (Negative) Urine Blood (Negative) Urine Nitrite (Negative) Urine Bilirubin (Negative) Urine Urobilinogen (Negative) Ur Leukocyte Esterase (Negative) Urine WBC (Auto) (0-5) /hpf Urine RBC (Auto) (0-4) /hpf U Hyaline Cast (Auto) (0-5) /lpf U Epithel Cells (Auto) (0-5) /lpf Urine Bacteria (Auto) (Negative) COVID-19 Eval Order SARS-CoV-2 (PCR) (Negative) Influenza Type A (PCR) (Neg) Influenza Type B (PCR) (Neg) RSV (RT-PCR) (Neg) Administered Medications Lactated Ringer's (Lr) 1,000 mls @ 125 mls/hr IV .Q8H MOIRA Stop: 08/09/20 01:29 Last Admin: 07/10/20 01:17 Dose: 125 mls/hr Documented by: [id number] Discontinued Medications Hydrocortisone Sodium Succinate (Hydrocortisone Sod Succinate 100 Mg/2 Ml Vial) 100 mg IV NOW STA Stop: 07/09/20 20:42 Last Admin: 07/09/20 21:45 Dose: 100 mg Documented by: [id number] Piperacillin Sod/Tazobactam Sod (Zosyn) 4.5 gm in 120 mls @ 240 mls/hr IV NOW ONE Stop: 07/09/20 21:07 Last Infusion: 07/09/20 22:00 Dose: 0 mls/hr Documented by: [id number] Admin: 07/09/20 21:40 Dose: 240 mls/hr Documented by: [id number] Sodium Chloride (Nss 1000ml) 1,000 mls @ 999 mls/hr IV .Q1H1M ONE Stop: 07/09/20 21:43 Last Infusion: 07/09/20 22:38 Dose: 0 mls/hr Documented by: [id number] Admin: 07/09/20 21:30 Dose: 999 mls/hr Documented by: [id number] Vancomycin HCl 2,750 mg/ (Sodium Chloride) 555 mls @ 200 mls/hr IV NOW ONE Stop: 07/09/20 23:45 Last Infusion: 07/10/20 01:10 Dose: 0 mls/hr Documented by: [id number] Admin: 07/09/20 22:23 Dose: 200 mls/hr Documented by: [id number] Lactated Ringer's (Lr) 1,000 mls @ 125 mls/hr IV .Q8H MOIRA Stop: 08/08/20 23:29 Last Admin: 07/10/20 01:09 Dose: Not Given Documented by: [id number] Ioversol (Optiray 300 100ml) 89 ml IV ONCE ONE Stop: 07/09/20 21:42 Last Admin: 07/09/20 21:42 Dose: 89 ml Documented by: [id number] Discharge Plan Visit Data Chief Complaint: Fever Stated Complaint: breast pain and dischard with fever ED Provider: Yogesh Chance Discharge Problem: Mastitis, Fever, Adrenal insufficiency Discharge Instructions Interventions: ED Discharge Assessment Last Done: 07/10/20 01:12 Discharge Problem: Fever Qualifiers: Fever type: unspecified Qualified Code(s): R50.9 - Fever, unspecified
[2020-07-09 22:22] LABS: Appearance Urine Clear (Clear); Bacteria Urine Automated Negative (Negative); Bilirubin Urine Negative (Negative); Blood Urine Negative (Negative); Cast Urine Automated 0 /lpf (0-5); Color Urine Yellow; Glucose Urine UA Negative (Negative); Ketones Urine Negative (Negative); Leukocyte Esterase Urine Negative (Negative); Nitrite Urine Negative (Negative); Protein Urine Trace (Negative); Specific Gravity Urine 1.043 (1.000-1.030); Urobilinogen Urine Negative (Negative)
[2020-07-09] MEDS ORDERED: LACTATED RINGER'S 1,000 ML IV SCH (23:30)
--- NOTE | 2020-07-09 23:36 | History & Physical Report ---
Date of Service July 09, 2020 Assessment & Plan (1) Mastitis: 54 yo F PMHx right sphenoid wing meningioma s/p resection and radiation therapy, adrenal insufficiency with steroid dependence, DVT/PE on Eliquis, hypothyroidism, anxiety, recent breast biopsy admitted for sepsis 2/2 right breast cellulitis/mastitis. Sepsis 2/2 right breast cellulitis/mastitis: Earlier this year noted a right breast lump, with 3mm mass noted on mammography. Biopsy performed by Dr. Manning on 05/12, and at that time also had several ducts ligated. Pathology was ultimately benign, diagnosed as inclusion cyst. Today was admitted with tachycardia and leukocytosis; no fevers in hospital however with reports of fever at home. CT Chest shows right breast cellulitis/mastitis with no abscess. Lactate elevated, procal normal. Given 2L IVF in ER; continue LR at 125cc/hr. General Surgery consulted given infection is from post-op site; unlikely to intervene surgically given no clear fluid collection. IV vanc/Zosyn started in ER after BCx were obtained. Local wound care. Meningioma s/p radiation, adrenal insufficiency, steroid dependence: History of meningioma diagnosed in 04/2019, s/p resection and several rounds of radiation in 05/2019. Now with resultant pituitary and adrenal insufficiency. Steroid dependent at baseline, and takes hydrocortisone 15mg daily. Has a history of speedy decline and septic shock from prior infections, most recently in 03/2020 from sepsis 2/2 UTI. Solu-Cortef 100mg IV given in ER, continue this dosing q8h. Hypothyroidism: Continue home levothyroxine. Hx DVT/PE: History of, on Eliquis therapy. Continue with 9am medications. SCDs while in bed, ad paola on demand. Anxiety: Continue Lexapro. Code Status: FULL CODE FEN: regular diet, LR at 125cc/hr DVT ppx: SCDs, Eliquis Dispo: Med Surg with Telemetry (2) Adrenal insufficiency: (3) Sepsis: History of Present Illness Chief Complaint: fevers, chills, right breast drainage and pain Primary Care Provider: Alicia Acosta, 54 yo F PMHx right sphenoid wing meningioma s/p resection and radiation therapy, pituitary/adrenal insufficiency with steroid dependence, DVT/PE on Eliquis, hypothyroidism, anxiety, recent breast biopsy presented to ER for fevers, chills, and right breast pain, swelling, and drainage. Yaima reports that about a month ago she had a breast biopsy performed by Dr. Manning for a 3mm mass noted on exam and mammography; procedure went well and patient has been healing well since. Mass was noted to be an inclusion cyst. Yesterday she started having fevers and chills, as well as drainage from an open spot on the breast where her nipple formerly was. She called into General Surgery office and was prescribed Bactrim by on-call physician Dr. Chapman. Due to having a history of quickly-developing sepsis and septic shock from an infection in March, she came to the ER for evaluation when she continued to have fevers and chills into the evening. In the ER patient was noted to be tachycardic but afebrile. Labwork revealed leukocytosis, elevated lactate to 2.2 -> 2.1 with 1L NSS. Negative procal and UA. COVID [address] Chest performed which revealed cellulitis/mastitis of the right breast without abscess. Allergies Allergy/AdvReac Type Severity Reaction Status Date / Time oxcarbazepine Allergy Severe Rash Verified 07/09/20 20:40 [From Trileptal] corn AdvReac Intermediate LEGS SWELL Verified 07/09/20 20:40 gluten AdvReac Intermediate LEGS SWELL Verified 07/09/20 20:40 hydrocodone AdvReac Intermediate vomiting Verified 07/09/20 20:40 Home Medications Medication Instructions Recorded Confirmed Type escitalopram oxalate [Lexapro] 10 mg PO QAM 10/30/18 07/09/20 History cholecalciferol (vitamin D3) 125 125 mcg PO WEEKLY tab 07/15/19 07/09/20 History mcg (5,000 unit) disintegrating tablet pantoprazole 40 mg tablet,delayed 40 mg PO DAILY 07/15/19 07/09/20 History release Eliquis 5 mg PO BID #60 tab 11/14/19 07/09/20 Rx hydrocortisone See Rx Instructions .ROUTE .COMPLEX 12/16/19 07/09/20 History lisinopril 5 mg PO DAILY 03/09/20 07/09/20 History metoprolol succinate 12.5 mg PO HS 03/09/20 07/09/20 History clobetasol 0.05 % topical ointment 1 applic TOPICAL .COMPLEX #15 g 03/23/20 07/09/20 Rx levothyroxine 100 mcg PO QAM 07/09/20 07/09/20 History sulfamethoxazole 800 1 tab PO BID #20 tab 07/09/20 07/09/20 Rx mg-trimethoprim 160 mg tablet Past Med/Surg History Medical History Acute dyspnea Anxiety Bilateral pulmonary embolism Chest CTA 12/16/19 with a small amount of residual pulmonary embolus within the left-sided pulmonary arteries as above, This has significantly improved as compared to 11/12/2019, There is chronic elevation of the right hemidiaphragm with segmental atelectasis at both lung bases, No airspace consolidation is seen typical for pneumonia and there is no pleural effusion. History of recent hospitalization History of torn meniscus of left knee Hx of [place] thyroiditis Hypothyroidism IgA deficiency follows with PSH (Dr. Acosta) Lichen sclerosus Lichen sclerosus et atrophicus Meningioma s/p subtotal resection 05/2019 and XRT. MRI brain 12/16/19 with Persistent large extra-axial enhancing skull base mass with bilateral cavernous sinus involvement and bilateral internal carotid encasement. The mass remains similar in size measuring approximately 5 x 4.6 x 4.6 cm. The findings are consistent with a meningioma. Postsurgical changes of a prior right temporal craniotomy. Stable dilatation of the right temporal horn and right temporal lobe T2 edema. Stable mass effect on the alejandra, and optic chiasm. There is interval nonspecific foci of punctate enhancement within the alejandra. This finding is of uncertain etiology and significance and could possibly be secondary to vascular enhancement from tumoral compression, or spinal dural invasion. No evidence of acute or subacute infarction MGUS (monoclonal gammopathy of unknown significance) Migraine Osteoarthritis Postmenopausal Surgical History H/O LEEP 2015, kirt 1 History of brain surgery transpetrosal craniotomy for subtotal resection 05/2019 History of section X2 History of colonoscopy History of tonsillectomy Hx of abdominal surgery uterine ablation (2008) Nausea and vomiting after administration of anesthetic agent Family History Mother Hypothyroidism Alzheimer disease Father Pre-diabetes Grandmother (Maternal) Non-Hodgkin lymphoma Denies family history of Ovarian cancer Breast cancer Colorectal cancer Social History Smoking Status: Never smoker Second Hand Exposure: No; Hx Alcohol Use: Yes Alcohol type: wine Alcohol Intake Frequency Comment: 2-3 imes per week Hx Substance Use: No Preferred Language: Kyrgyz Communication Ability: Effective Hearing Ability: Hard of Hearing Mule Packer Required: No Beliefs That Will Affect Care: None marital status: Current Living Situation: Spouse current occupational status: previously employed current occupation: pediatric physical therapist Feels Safe at Home: Yes Childhood Exposure to Second-Hand Smoke: Yes caffeine: Yes (occ coffee, ) during the past year weight has: remained stable Dental Care, Regularly: Yes Physical Activity Frequency: 3-4 Times per Week Seatbelt Use: always Sunscreen Use: Yes Assistive Devices: None Review of Systems Review of Systems: All systems reviewed & are unremarkable except as noted in HPI & below Constitutional: + fever, + chills and + malaise Respiratory: no cough and no dyspnea Cardiovascular: no chest pain, no palpitations and no edema Gastrointestinal: no abdominal pain, no constipation and no diarrhea/loose stools Genitourinary: no dysuria and no hematuria Physical Exam Constitutional: WD/WN, vitals as above Eyes: PERRL, conjunctivae normal, anicteric sclerae ENMT: external ear and nose normal, oropharynx normal Neck: normal visual inspection Respiratory: normal respiratory effort, lungs clear to auscultation Cardiovascular: Rate/Rhythm: regular rhythm and + tachycardic Heart Sounds: no murmur Extremities: no edema Gastrointestinal (Abdomen): normal bowel sounds, soft, nontender, no hepatosplenomegaly Musculoskeletal: no cyanosis or clubbing, extremities motor strength 5/5 Skin: No rashes. Right breast noted to be firm and warm around area of right nipple. Punctum visualized (in location of nipple area) with no drainage able to be expressed, however with yellow purulent drainage on bandage. No areas of fluctuance. Mildly tender to palpation Neurologic: AAOx3, normal speech. PERRLA, EOMI, no nystagmus. Bilateral UE, LE, and face without sensory or motor deficits. No tremor. Psychiatric: A+Ox3, euthymic affect Results & Data Results & Data ([facility]) Vital Signs (Past 12 Hours) Vital Signs Temp Pulse Pulse Resp BP BP Pulse Ox 07/09/20 23:16 87 12 117/53 L 97 07/09/20 23:15 84 17 98 07/09/20 23:00 87 13 109/71 96 07/09/20 22:49 84 18 109/57 L 07/09/20 22:45 83 16 07/09/20 22:30 84 26 H 98 07/09/20 22:15 84 16 98 07/09/20 22:02 83 13 98 07/09/20 22:01 37.6 C 84 18 111/70 98 07/09/20 22:00 86 23 07/09/20 21:30 84 16 99 07/09/20 21:15 79 17 99 07/09/20 21:00 84 16 100 07/09/20 20:45 89 97 H 27 H 133/79 98 07/09/20 20:36 91 H 17 99 07/09/20 20:23 91 H 15 133/79 99 07/09/20 19:57 37 C 100 H 18 121/84 95 Code Status & VTE Plan VTE Prophylaxis Plan VTE Prophylaxis will be ordered: Yes Supervising Physician Co-Signing Physician Notes Attending addendum: I have physically seen this patient, have supervised the medical residents activities, and agree with the H&P unless as otherwise noted. Assessment and Plan: Sepsis/right breast cellulitis/mastitis/history of breast biopsy- Tachycardia/neutrophilic leukocytosis/elevated lactate/dehydration Status post 2 L normal saline in ER LR at 125 mils per hour Vancomycin IV and Zosyn IV per pharmacokinetic monitoring Follow blood cultures Pituitary, adrenal insufficiency/steroid dependence/meningioma status post radiation- Baseline hydrocortisone 15 mg p.o. daily will be held Stress dose steroids hydrocortisone 100 mg IV every 8 hours Hypothyroidism- Continue levothyroxine History DVT/PE- Continue Eliquis Remaining orders and notations as noted Resident Activity Tracking Resident Involvement: Resident Care Provided Care Provided: Adult Hospital Medicine (1) Sepsis Sepsis acute organ dysfunction status: without acute organ dysfunction Sepsis type: sepsis due to unspecified organism Qualified Code(s): A41.9 - Sepsis, unspecified organism
[2020-07-10] MEDS ORDERED: ONDANSETRON INJ 2 MG/ML 2 ML VIAL IV PRN (01:04)
[2020-07-10] MEDS ORDERED: ACETAMINOPHEN 325 MG TAB PO PRN (01:04)
[2020-07-10] MEDS ORDERED: HYDROCORTISONE SOD SUCCINATE 100 MG/2 ML VIAL IV SCH (01:04)
[2020-07-10] MEDS ORDERED: POLYETHYLENE (MIRALAX) 17 GM PACK PO PRN (01:04)
[2020-07-10] MEDS: LACTATED RINGER'S 1,000 ML IV SCH ×3 (01:17→19:00)
[2020-07-10] MEDS: PIPERACILLIN/TAZOBACTAM 4.5 GM in DEXTROSE 5% 100 ML IV SCH ×3 (03:20→18:30)
[2020-07-10] MEDS: LEVOTHYROXINE SODIUM 100 MCG TABLET PO SCH (05:55)
[2020-07-10] MEDS: HYDROCORTISONE SOD 100 MG in SYRINGE 0 ML IV SCH ×3 (05:57→21:01)
--- NOTE | 2020-07-10 07:44 | CT Scan Report ---
CHEST CT WITH CONTRAST CT DOSE: 643.29 mGy.cm HISTORY: Acute fever with right breast soft tissue swelling and possible abscess fevers, ?breast abs cess/mastitis TECHNIQUE: Multiaxial CT images of the chest were performed following the IV administration of 120 cc of Optiray. A dose lowering technique was utilized adhering to the principles of ALARA. COMPARISON: Right breast ultrasound 04/20/2020, CT chest 12/16/2019 FINDINGS: No thyroid nodule or adenopathy. The heart is normal in size without pericardial effusion. No thoraci c aortic aneurysm or dissection. Opacified pulmonary artery is unremarkable. Chronic right hemidiaphr agmatic elevation. No pneumothorax, pleural effusion, overt pulmonary edema or airspace consolidation to suggest pneumonia. Mild linear subsegmental bibasilar atelectasis/scarring. Central airways are p atent. No pneumoperitoneum. No acute process of the imaged upper abdomen. 10 mm cyst of the superior pole le ft kidney. There is skin thickening with subcutaneous edema centered around the right nipple and curt areolar distribution. No fluid collection or discrete mass. No acute fracture or suspicious bone lesi on. IMPRESSION: 1. No adenopathy, pleural effusion or airspace consolidation to suggest pneumonia. 2. Skin thickening with subcutaneous edema centered around the right nipple and areola. No fluid kishore ection or discrete mass identified. Correlation should be made with clinical exam findings and mammog raphic follow-up. ACT 112: Negative or not required by law. Electronically signed by: Suman Chase M.D. 07/10/2020 7:42 AM
--- NOTE | 2020-07-10 08:30 | XRay Report ---
XR chest 1V portable CLINICAL HISTORY: SEPSIS COMPARISON STUDY: 03/09/2020 FINDINGS: The cardiac and mediastinal contours remain stable. There are by basilar subsegmental atele ctatic changes. There is no failure. There is no lobar consolidation. There is mild elevation/eventra tion right hemidiaphragm.[ IMPRESSION: Bilateral subsegmental atelectatic changes. ACT 112: Negative or not required by law. Electronically signed by: Louis Jesus M.D. 07/10/2020 8:29 AM
[2020-07-10] MEDS ORDERED: APIXABAN 5 MG TABLET PO SCH (09:15)
--- NOTE | 2020-07-10 09:21 | Surgery Consultation ---
Date of Consultation July 10, 2020 Assessment & Plan (1) Nipple anomaly: Patient feeling better already on IV antibiotics. Etiology unclear. Perhaps her pituitary/prolactin levels may be contributory. Nonetheless she is feeling better we will continue IV antibiotics. She may be restarted on her Eliquis. No surgical indications at this time. [facility] surgeons will be back on tomorrow. History of Present Illness Attending Physician: Mayur Swann DO History of Present Illness 54-year-old female with multiple medical problems on chronic steroid use for a brain tumor had an inclusion cyst excised from her right breast about a month ago by Dr. Tita Manning. Yesterday she started to complain of some tenderness and drainage from her nipple areolar region near her surgical site. Outpatient antibiotics were started however her symptoms progressed to fever chills she was concerned to come to the emergency room. CAT scan showed some inflammatory process in the region of the right breast however no drainable abscess. She is feeling better already after some IV antibiotics. Allergies Allergy/AdvReac Type Severity Reaction Status Date / Time oxcarbazepine Allergy Severe Rash Verified 07/09/20 20:40 [From Trileptal] corn AdvReac Intermediate LEGS SWELL Verified 07/09/20 20:40 gluten AdvReac Intermediate LEGS SWELL Verified 07/09/20 20:40 hydrocodone AdvReac Intermediate vomiting Verified 07/09/20 20:40 Home Medications Medication Instructions Recorded Confirmed Type escitalopram oxalate [Lexapro] 10 mg PO QAM 10/30/18 07/09/20 History cholecalciferol (vitamin D3) 125 125 mcg PO WEEKLY tab 07/15/19 07/09/20 History mcg (5,000 unit) disintegrating tablet pantoprazole 40 mg tablet,delayed 40 mg PO DAILY 07/15/19 07/09/20 History release Eliquis 5 mg PO BID #60 tab 11/14/19 07/09/20 Rx hydrocortisone See Rx Instructions .ROUTE .COMPLEX 12/16/19 07/09/20 History lisinopril 5 mg PO DAILY 03/09/20 07/09/20 History metoprolol succinate 12.5 mg PO HS 03/09/20 07/09/20 History clobetasol 0.05 % topical ointment 1 applic TOPICAL .COMPLEX #15 g 03/23/20 07/09/20 Rx levothyroxine 100 mcg PO QAM 07/09/20 07/09/20 History sulfamethoxazole 800 1 tab PO BID #20 tab 07/09/20 07/09/20 Rx mg-trimethoprim 160 mg tablet Patient History Medical History Acute dyspnea Anxiety Bilateral pulmonary embolism Chest CTA 12/16/19 with a small amount of residual pulmonary embolus within the left-sided pulmonary arteries as above, This has significantly improved as compared to 11/12/2019, There is chronic elevation of the right hemidiaphragm with segmental atelectasis at both lung bases, No airspace consolidation is seen typical for pneumonia and there is no pleural effusion. History of recent hospitalization History of torn meniscus of left knee Hx of [place] thyroiditis Hypothyroidism IgA deficiency follows with PSH (Dr. Acosta) Lichen sclerosus Lichen sclerosus et atrophicus Meningioma s/p subtotal resection 05/2019 and XRT. MRI brain 12/16/19 with Persistent large extra-axial enhancing skull base mass with bilateral cavernous sinus involvement and bilateral internal carotid encasement. The mass remains similar in size measuring approximately 5 x 4.6 x 4.6 cm. The findings are consistent with a meningioma. Postsurgical changes of a prior right temporal craniotomy. Stable dilatation of the right temporal horn and right temporal lobe T2 edema. Stable mass effect on the alejandra, and optic chiasm. There is interval nonspecific foci of punctate enhancement within the alejandra. This finding is of uncertain etiology and significance and could possibly be secondary to vascular enhancement from tumoral compression, or spinal dural invasion. No evidence of acute or subacute infarction MGUS (monoclonal gammopathy of unknown significance) Migraine Osteoarthritis Postmenopausal Surgical History H/O LEEP 2015, kirt 1 History of brain surgery transpetrosal craniotomy for subtotal resection 05/2019 History of section X2 History of colonoscopy History of tonsillectomy Hx of abdominal surgery uterine ablation (2008) Nausea and vomiting after administration of anesthetic agent Family History Mother Hypothyroidism Alzheimer disease Father Pre-diabetes Grandmother (Maternal) Non-Hodgkin lymphoma Denies family history of Ovarian cancer Breast cancer Colorectal cancer Social History Smoking Status: Never smoker Second Hand Exposure: No; Hx Alcohol Use: Yes Alcohol type: wine Alcohol Intake Frequency Comment: 2-3 imes per week Hx Substance Use: No Preferred Language: Brazilian Communication Ability: Effective Hearing Ability: Hard of Hearing Quality Assurance Supervisor Chassis Required: No Beliefs That Will Affect Care: None marital status: Current Living Situation: Spouse current occupational status: previously employed current occupation: pediatric physical therapist Feels Safe at Home: Yes Childhood Exposure to Second-Hand Smoke: Yes caffeine: Yes (occ coffee, ) during the past year weight has: remained stable Dental Care, Regularly: Yes Physical Activity Frequency: 3-4 Times per Week Seatbelt Use: always Sunscreen Use: Yes Assistive Devices: Glasses Review of Systems Review of Systems: All systems reviewed & are unremarkable except as noted in HPI & below Physical Exam Constitutional: WD/WN, vitals as above no acute distress and not ill appearing Eyes: PERRL, conjunctivae normal, anicteric sclerae EOM intact bilaterally ENMT: external ear and nose normal, oropharynx normal Ears: no hearing impairment Neck: trachea midline, no thyromegaly Respiratory: normal respiratory effort; no respiratory distress and does not use accessory muscles Cardiovascular: Rate/Rhythm: regular rate and regular rhythm Chest (Breasts): Additional Comments: Right breast incision is well-healed. There is a small amount of grayish discharge from her right nipple. There is some mild induration and firmness. No fluctuance. Gastrointestinal (Abdomen): normal bowel sounds, soft, nontender, no hepatosplenomegaly Skin: no rashes, warm and dry Psychiatric: Orientation: alert, oriented x 3 and cooperative Results & Data ([facility]) Vital Signs (Past 12 Hours) Vital Signs Temp Pulse Pulse Resp BP BP Pulse Ox 07/10/20 07:11 37.0 C 78 16 115/76 95 07/10/20 01:39 82 07/10/20 01:04 36.9 C 86 18 111/57 L 98 07/10/20 01:00 36.9 C 86 20 111/57 L 98 07/10/20 00:30 81 18 99 07/10/20 00:15 84 20 98 07/10/20 00:00 81 17 100 07/09/20 23:45 87 26 H 98 07/09/20 23:30 78 18 99 07/09/20 23:17 82 20 97 07/09/20 23:16 87 12 117/53 L 97 07/09/20 23:15 84 17 98 07/09/20 23:00 87 13 109/71 96 07/09/20 22:49 84 18 109/57 L 07/09/20 22:45 83 16 07/09/20 22:30 84 26 H 98 07/09/20 22:15 84 16 98 07/09/20 22:02 83 13 98 07/09/20 22:01 37.6 C 84 18 111/70 98 07/09/20 22:00 86 23 07/09/20 21:30 84 16 99 PG Care Time/CCT Total # of Minutes Spent Total Time Spent with Patient: Total time spent is greater than 50% in coordination of care (as documented) at patient's floor/unit and/or counseling patient: Coding Level of Care Code None Diagnoses Nipple anomaly Q83.9
[2020-07-10] MEDS: ESCITALOPRAM OXALATE 10 MG TAB PO SCH (09:43)
[2020-07-10] MEDS: PANTOprazole 40 MG TAB PO SCH (09:44)
[2020-07-10] MEDS: APIXABAN 5 MG TABLET PO SCH ×2 (09:44→21:01)
--- NOTE | 2020-07-10 10:13 | Pharmacy Report ---
Pharmacy Abx Dose Short Note - Date of Service July 10, 2020 - Assessment & Plan Assessment 54 year old started on vancomycin and zosyn for possible cellulitis/mastitis. PMHx significant for meningioma s/p resection/radiation 05/2019. On 05/12 dx with inclusion cyst on breast. Presenting with tachycardia/leukocytosis. CT negative for abscess. Surgery consulted and plan for IV antibiotics for now. Cultures pending. Plan Vancomycin * Received loading dose of vancomycin 2750 mg x 1 last evening * Started on vancomycin 1250 mg iv q 12 hr to achieve estimated level ~15 mcg/ml * Less than traditional dosing selected d/t BMI >35 kg/m2 and increased risk for accumulation with vancomycin * Plan to order level if vancomycin continued >48 hrs Zosyn * 4.5 gm iv q 8 hr - no change Pharmacy will continue to follow and will adjust dose/frequency as necessary. Thank you.
[2020-07-10] MEDS: VANCOMYCIN HCL 1,250 MG in SODIUM CHLORIDE 0.9% 250 ML IV SCH (11:25)
--- NOTE | 2020-07-10 11:33 | Hospitalist Progress Note ---
Date of Service July 10, 2020 Assessment & Plan (1) Mastitis: 54 yo F PMHx right sphenoid wing meningioma s/p resection and radiation therapy, adrenal insufficiency with steroid dependence (following meningioma removal), DVT/PE on Eliquis, hypothyroidism, anxiety, recent breast biopsy admitted for right breast cellulitis following a recent breast biopsy. Cellulitis of the Right Breast * Earlier this year noted a right breast lump, with 3mm mass noted on mammogra phy. * Biopsy performed by Dr. Manning on 05/12, and at that time also had several ducts ligated. - Pathology concluded on benign inclusion cyst * Work-up as follows: - Tachycardia without HoTN on admission, alongside +leukocytosis, +lactate, -procal - CT Chest shows right breast cellulitis/mastitis with no abscess. * General Surgery consulted given infection is from post-op site - No surgical intervention required at this time - Continue IV ABX * Given patient's chronic immunosuppression (see below), certainly at higher risk for more severe cellulitis / transition to bloodborne * Continue empiric Zosyn + vancomycin for now * Pending wound culture results / clinical presentation, consider transitioning to oral ABX on Saturday (e.g., Bactrim or Doxy, consider expanded gram negative coverage) - Has a history of speedy decline and septic shock from prior infections, most recently in 03/2020 from sepsis 2/2 UTI * Local wound care Adrenal Insufficiency with Steroid Dependence (s/p meningioma removal and radiation in 05/2019) * History of meningioma diagnosed in 04/2019, s/p resection and several rounds of radiation in 05/2019. * Now with resultant pituitary and adrenal insufficiency. * Steroid dependent at baseline - hydrocortisone 15mg PO daily * Solu-Cortef 100mg IV q8h * If clinically improving on Saturday, consider transition back to home hydrocortisone 15mg PO daily Hypothyroidism (s/p meningiectomy) * Continue home levothyroxine Hx DVT/PE * Continue Eliquis * SCDs while in bed, ad paola on demand Anxiety * Continue Lexapro Code Status: FULL CODE FEN: Regular diet DVT ppx: SCDs, Eliquis Dispo: Med Surg with Telemetry (2) Adrenal insufficiency: (3) Sepsis: Admission and Anticipated Discharge Date Admission Date: July 09, 2020 Supervising Physician Co-Signing Physician Notes I personally examined the patient and verified all soliz points of history and exam, discussed case, and agree with decision making with Dr Haider. Feeling much better. Notes that the redness is going down significantly. Vitals noted, in general she is awake and alert pleasant no distress. HEENT normocephalic atraumatic mucous membranes moist. Breathing unlabored no accessory muscle use good effort. Mastitisgiven drainage, have to assume possibility of MRSA. Continue broad coverage pending further clinical improvement and culture results. Hopefully home in the next day or 2 on oral antibiotics as long as she continues to show improvement. Pituitary insufficiencycontinue stress dose steroids for now, anticipate r eturning to her home dosing by tomorrow with ongoing clinical improvement. VTEEliquis Subjective No acute events overnight. History reviewed with patient, no major additions or changes at this time. Patient reports that they were able to get some sleep last night and feel pretty well overall upon my arrival. They said that they have not had recurrence of the the chills, rigors, feeling of illness that they experienced prior to their presentation. Does also note that she continues to experience discharge out of the wound on her right sidemostly a white/yellow appearance. Denies any chest pain, palpitations, shortness of breath, nausea, vomiting. Says she has good appetite. Eager for breakfast. Review of Systems Review of Systems: As per HPI Physical Exam Physical Exam: General: 54-year-old female who is alert, oriented, and appears in no acute distress. Cardiac: Normal rate and regular rhythm; S1 and S2 present with no murmurs, rubs, or gallops. Pulmonary: Good respiratory effort with symmetric expansion of the chest. No use of accessory muscles. Lungs were clear to auscultation bilaterally with no crackles or wheezes. Abdominal: Normoactive bowel sounds. Abdomen was soft, nondistended, and non- tender to palpation. No hepatomegaly or splenomegaly. Dermatologic: Nurse awnings mechanic was present during the dermatologic exam of the right breast. Visual examination does reveal mild erythema around a draining 1 x 1 cm wound in the medial/inferior portion of the breast. There is a white to yellow discharge expressed from this area. Gentle palpation of this area and the surrounding tissue does reveal induration approximately 3 cm above the wound, and an area of about 4 x 2 cm. This area is mildly tender and warm to palpation. Extremities: Upper and lower extremities are warm and well perfused. Radial and dorsalis pedis pulses were 2+ b/l. Capillary refill assessed in UE was < 3 sec. Psych: Well-developed, well-nourished, appropriately dressed for occasion. Behavior is cooperative and appropriate. Affect is WNL. Insight is appropriate. Results & Data Results & Data ([facility]) Vital Signs (Past 12 Hours) Vital Signs Temp Pulse Pulse Resp BP Pulse Ox 07/10/20 09:00 71 07/10/20 07:11 37.0 C 78 16 115/76 95 07/10/20 01:39 82 07/10/20 01:04 36.9 C 86 18 111/57 L 98 07/10/20 01:00 36.9 C 86 20 111/57 L 98 07/10/20 00:30 81 18 99 07/10/20 00:15 84 20 98 07/10/20 00:00 81 17 100 07/09/20 23:45 87 26 H 98 Resident Activity Tracking Resident Involvement: Resident Care Provided Care Provided: Adult Hospital Medicine (1) Sepsis Sepsis acute organ dysfunction status: without acute organ dysfunction Sepsis type: sepsis due to unspecified organism Qualified Code(s): A41.9 - Sepsis, unspecified organism
--- NOTE | 2020-07-10 14:52 | Billing Data ---
Date of Service July 10, 2020 Coding Level of Care Code 77728 Subseq Hosp Care Lvl 3
--- NOTE | 2020-07-10 22:02 | Electrocardiogram Report ---
Test Reason : Blood Pressure : / mmHG Vent. Rate : 082 BPM Atrial Rate : 082 BPM P-R Int : 142 ms QRS Dur : 080 ms QT Int : 388 ms P-R-T Axes : 051 004 -15 degrees QTc Int : 453 ms Normal sinus rhythm Cannot rule out Anterior infarct (cited on or before 09-JUL-2020) Abnormal ECG When compared with ECG of 09-MAR-2020 12:17, No significant change was found Confirmed by Mateo Arreguin ([id number]) on 07/10/2020 10:01:58 PM Referred By: REFERRED SELF Confirmed By:Mateo Arreguin
[2020-07-11] MEDS: VANCOMYCIN HCL 1,250 MG in SODIUM CHLORIDE 0.9% 250 ML IV SCH ×2 (00:03→13:11)
[2020-07-11] MEDS: PIPERACILLIN/TAZOBACTAM 4.5 GM in DEXTROSE 5% 100 ML IV SCH ×2 (02:33→08:49)
--- NOTE | 2020-07-11 04:58 | Billing Data ---
Date of Service July 11, 2020 Coding Level of Care Code 36076 Initial Inpt Care Lvl 3
[2020-07-11 06:12] LABS: Basophils # (auto) 0.01 K/uL (0-0.2); Basophils % (auto) 0.1 %; Eosinophils # (auto) 0.02 K/uL (0-0.5); Eosinophils % (auto) 0.2 %; Hemoglobin 10.2 g/dL (12.0-16.0); Immature Granulocytes # (auto) 0.02 K/uL (0.00-0.02); Immature Granulocytes % (auto) 0.2 %; Lymphocytes # (auto) 0.93 K/uL (1.2-3.4); Mean Corpuscular Hemoglobin 26.5 pg (25-34); Mean Corpuscular Hgb Conc 32.9 g/dL (32-36); Mean Corpuscular Volume 80.5 fL (80-100); Monocytes # (auto) 0.32 K/uL (0.11-0.59); Monocytes % (auto) 3.5 %; Neutrophils # (auto) 7.96 K/uL (1.4-6.5); Platelet Count 245 K/uL (130-400); RDW Coefficient of Variation 14.8 % (11.5-14.5); RDW Standard Deviation 43.4 fL (36.4-46.3); Red Blood Count 3.85 M/uL (4.2-5.4); White Blood Count 9.26 K/uL (4.8-10.8)
[2020-07-11] MEDS: LEVOTHYROXINE SODIUM 100 MCG TABLET PO SCH (06:37)
[2020-07-11] MEDS: HYDROCORTISONE SOD 100 MG in SYRINGE 0 ML IV SCH ×2 (06:37→13:14)
[2020-07-11 06:56] LABS: BUN Creatinine Ratio 13.7 (10-20); C Reactive Protein 6.82 mg/dl (0-0.29); Calcium 8.6 mg/dl (8.5-10.1); Creatinine Clr Calc Pharmacy 92.6 ml/min; Est GFR (African American) 91.3; Est GFR (Non-African American) 78.8; Potassium 3.2 mmol/L (3.5-5.1); T4 Free Thyroxine 1.13 ng/dl (0.8-1.6)
[2020-07-11] MEDS ORDERED: POTASSIUM CHLORIDE CRTAB 20 MEQ TABCR PO STA (07:41)
[2020-07-11] MEDS: PANTOprazole 40 MG TAB PO SCH (08:44)
[2020-07-11] MEDS: ESCITALOPRAM OXALATE 10 MG TAB PO SCH (08:44)
[2020-07-11] MEDS: APIXABAN 5 MG TABLET PO SCH (08:44)
--- NOTE | 2020-07-11 13:39 | Discharge Summary ---
Date of Service July 11, 2020 Admission HPI Per Admitting Provider 54 yo F PMHx right sphenoid wing meningioma s/p resection and radiation therapy, pituitary/adrenal insufficiency with steroid dependence, DVT/PE on Eliquis, hypothyroidism, anxiety, recent breast biopsy presented to ER for fevers, chills, and right breast pain, swelling, and drainage. Yaima reports that about a month ago she had a breast biopsy performed by Dr. Manning for a 3mm mass noted on exam and mammography; procedure went well and patient has been healing well since. Mass was noted to be an inclusion cyst. Yesterday she started having fevers and chills, as well as drainage from an open spot on the breast where her nipple formerly was. She called into General Surgery office and was prescribed Bactrim by on-call physician Dr. Chapman. Due to having a history of quickly- developing sepsis and septic shock from an infection in March, she came to the ER for evaluation when she continued to have fevers and chills into the evening. In the ER patient was noted to be tachycardic but afebrile. Labwork revealed leukocytosis, elevated lactate to 2.2 -> 2.1 with 1L NSS. Negative procal and UA. COVID [address] Chest performed which revealed cellulitis/mastitis of the right breast without abscess. Admission Exam Per Admitting Provider Constitutional: WD/WN, vitals as above Eyes: PERRL, conjunctivae normal, anicteric sclerae ENMT: external ear and nose normal, oropharynx normal Neck: normal visual inspection Respiratory: normal respiratory effort, lungs clear to auscultation Cardiovascular: Rate/Rhythm: regular rhythm and + tachycardic Heart Sounds: no murmur Extremities: no edema Gastrointestinal (Abdomen): normal bowel sounds, soft, nontender, no hepatosplenomegaly Musculoskeletal: no cyanosis or clubbing, extremities motor strength 5/5 Skin: No rashes. Right breast noted to be firm and warm around area of right nipple. Punctum visualized (in location of nipple area) with no drainage able to be expressed, however with yellow purulent drainage on bandage. No areas of fluctuance. Mildly tender to palpation Neurologic: AAOx3, normal speech. PERRLA, EOMI, no nystagmus. Bilateral UE, LE, and face without sensory or motor deficits. No tremor. Psychiatric: A+Ox3, euthymic affect Principal Diagnosis Right breast cellulitis/mastitis Discharge Exam General: alert, oriented, and appears in no acute distress. Cardiac: Normal rate and regular rhythm; S1 and S2 present with no murmurs, rubs, or gallops. Pulmonary: Good respiratory effort with symmetric expansion of the chest. No use of accessory muscles. Lungs were clear to auscultation bilaterally with no crackles or wheezes. Dermatologic: Visual examination reveals mild erythema around portion of the breast where nipple would've previously been located. There is a [id number] discharge expressed from this area. Gentle palpation of this area and the surrounding tissue does reveal induration approximately 3 cm above the wound, and an area of about 4 x 2 cm. The area is not tender to palpation. Psych: Behavior is cooperative and appropriate. Euthymic affect. Insight is appropriate. Discharge Data Allergies Allergy/AdvReac Type Severity Reaction Status Date / Time oxcarbazepine Allergy Severe Rash Verified 07/09/20 20:40 [From Trileptal] corn AdvReac Intermediate LEGS SWELL Verified 07/09/20 20:40 gluten AdvReac Intermediate LEGS SWELL Verified 07/09/20 20:40 hydrocodone AdvReac Intermediate vomiting Verified 07/09/20 20:40 Consultations 07/09/20 22:41 ED Decision to Admit Stat 07/09/20 23:28 Consult General Surgery Routine Ordered Studies 07/09/20 20:40 CT chest diagnostic w con Urgent Hospital Course (1) Mastitis: 54 yo F with PMHx right sphenoid wing meningioma s/p resection and radiation therapy, adrenal insufficiency with steroid dependence (following meningioma removal), DVT/PE on Eliquis, hypothyroidism, anxiety, recent breast biopsy admitted for right breast cellulitis following a recent breast biopsy. Cellulitis of the Right Breast * Earlier this year noted a right breast lump, with 3mm mass noted on mammography. * Biopsy performed by Dr. Manning on 05/12, and at that time also had several ducts ligated. - Pathology concluded on benign inclusion cyst * Work-up as follows: - Tachycardia without HoTN on admission, alongside +leukocytosis, +lactate, -procal - CT Chest showed right breast cellulitis/mastitis with no abscess. * General Surgery consulted given infection was from post-op site - No surgical intervention required - Recommended antibiotics * Blood culture with NGTD and wound culture growing coag negative staph so transitioned from Zosyn + Vancomycin to oral Keflex at discharge for 7 additional days Adrenal Insufficiency with Steroid Dependence (s/p meningioma removal and radiation in 05/2019) * History of meningioma diagnosed in 04/2019, s/p resection and several rounds of radiation in 05/2019. * Now with resultant pituitary and adrenal insufficiency. * Steroid dependent at baseline - hydrocortisone 15mg PO daily * Solu-Cortef 100mg IV q8h while admitted -- transitioned back to home dose at CT Hypothyroidism (s/p meningiectomy) * Continued home levothyroxine Hx DVT/PE * Continued Eliquis Anxiety * Continued Lexapro FEN: Regular diet Dispo: Home - Self Care (2) Adrenal insufficiency: (3) Sepsis: Total Time Total Time Spent Total Time Spent (In Minutes): See attending attestation Discharge Plan Discharge Items Patient Disposition: Home - Self-Care Reason For Visit: WORSENING RIGHT BREAST CELLULITIS Discharge Diagnosis: Right breast cellulitis Activity: Per Instructions section Non-emergency contact: Primary Care Provider Call non-emergency contact if: you have any medication questions, your symptoms worsen and your temperature is above 101 Follow-up/Referrals: Alicia Acosta DO [Primary Care Provider] - Joseph Bright MD [Resident] - (Office will call patient with appointment date and time) Diet: Heart Healthy Addtl Attending Provider Instructions: You were admitted to [facility] due to fever and chills as follows drainage from the biopsy spot. You were admitted and started on IV antibiotics to treat the infection. Additionally, due to your history of adrenal insufficiency you were started on stress dose IV steroids. You progressed well on treatment and remained stable throughout hospitalization, with breast tenderness improving significantly. As such, you will be discharged on oral antibiotics and transition back to your home dosing of oral steroids. You will be sent home on Keflex 500 mg twice daily. Please take this medication until course is fully completed. We recommend that you follow-up with your primary care provider on Saturday to discuss your hospitalization and reevaluate you for signs of worsening infection. You will be set up for follow-up with myself, Dr. Bright, on Saturday afternoon. If you develop fever, chills, worsening breast pain, worsening drainage, or any other concerning symptoms please contact your healthcare provider or seek emergency medical care. Thank you for allowing us to participate in your care. Pending Studies at Discharge: No Stand-Alone Forms: [facility], Smoking Cessation Medications and DC Order Prescriptions: New cephalexin 500 mg capsule 500 mg PO BID 7 Days Qty: 14 RF: 0 Continued pantoprazole [Protonix] 40 mg tablet,delayed release (DR/EC) 40 mg PO DAILY RF: 0 cholecalciferol (vitamin D3) 125 mcg (5,000 unit) tablet,disintegrating 125 mcg PO WEEKLY RF: 0 clobetasol 0.05 % ointment 1 applic topical .COMPLEX Qty: 15 RF: 3 Eliquis 5 mg tablet 5 mg PO BID Qty: 60 RF: 5 hydrocortisone 10 mg tablet See Rx Instructions .ROUTE .COMPLEX RF: 0 lisinopril 10 mg tablet 5 mg PO DAILY RF: 0 metoprolol succinate 25 mg tablet extended release 24 hr 12.5 mg PO HS RF: 0 escitalopram oxalate [Lexapro] 10 mg Tablet 10 mg PO QAM RF: 0 levothyroxine 100 mcg tablet 100 mcg PO QAM RF: 0 Discontinued sulfamethoxazole-trimethoprim [Bactrim DS] 800-160 mg tablet 1 tab PO BID Qty: 20 RF: 0 Discharge Orders: Discharge Order (Routine); Ordered 07/11/20 Ordered By: Joseph Holguin/Other Patient Handouts: Abscess Drainage Admission Data Admit Date/Time: 07/09/20 23:28 Attending Provider: Carlyn Stout Admit Provider: Zara Callahan Primary Care Provider: Alicia Acosta Other Providers: Tawanda Garner ; Tita Manning ; Mayur Swann Other Interventions: Discharge Summary Assessment (RN) Last Done: 07/11/20 14:16 Supervising Physician Co-Signing Physician Notes Resident Physician Supervision Note: I independently interviewed and examined the patient and verified the soliz history and physical, reviewed labs and image studies, discussed the case with the resident Dr. Lozano and agree with the findings and care plan. Resident Activity Tracking Resident Involvement: Resident Care Provided Care Provided: Adult Hospital Medicine
[2020-07-11] MEDS ORDERED: VANCOMYCIN TROUGH ONE (22:30)
--- NOTE | 2020-07-25 15:09 | Coding Query ---
SEPSIS To promote full compliance with coding requirements relating to patient care, physician participation is requested in all cases of forklift operator uncertainty. Please assist us with the question(s) below: In responding to this query, please exercise your independent professional judgement. The fact that a question is asked does not imply that any particular answer is desired or expected. We appreciate your clarification on this issue. Throughout the medical record, you have clearly documented a localized infection of the breast. The term sepsis is listed under the assessment & plan. Please clarify if the patient had/treated for sepsis and document other source if known, please clarify in your response below. The medical record reflects the following clinical findings: 07/09/20 Pulse <90/minute, 07/09/20 WBC count increased, 07/09/20 blood culture (enter organism) ____ __x__ Sepsis Specify Organism - coag neg staph Specify Associated Condition/Diagnosis - right breast cellulitis. ____ Other, patient has: Unable to determine thank you MARLY Joe
== END 2020-07-11 14:57 | disposition home or self-care (01) | DRG 872 ==
LOC: ED 19:52 → 2W 23:28 → SUATTDRO 23:28 → 2W 07-10 01:12 → 3W 07-10 19:34